=== PATIENT | female | born 1975 | race Caucasian/White ===

== ENCOUNTER 2018-05-09 06:56 | Inpatient (IN) | payer OTHER ==
[2018-05-09] MEDS ORDERED: NA CHLORIDE 0.9% 500 ML ONE (07:17)
[2018-05-09 07:25] LABS: Absolute Lymphocytes (CBC) 2.3 K/uL (0.7-4.9); Absolute Monocytes 0.6 K/uL (0.1-1.3); Absolute Neutrophil 12.2 K/uL (1.8-8.0); Basophils % 0.5 % (0-1.3); Eosinophils % 0.6 % (0-4.4); Hematocrit 44.5 % (36.0-45.0); MCH 30.7 pg (27.0-35.0); MCV 90.2 fL (80-100); MPV 8.2 fL (7.6-11.3); RBC Red Blood Cell Count 4.93 M/uL (3.86-4.86)
[2018-05-09 07:48] LABS: Albumin 3.8 g/dL (3.4-5.0); Bilirubin Direct 0.1 mg/dL (0-0.2); Bilirubin Total 0.5 mg/dL (0.2-1.0); Potassium 3.6 mmol/L (3.5-5.1); Protein, Total 8.4 g/dL (6.4-8.2)
[2018-05-09] MEDS ORDERED: MORPHINE 4 MG/ML SYR ONE ×2 (08:00→10:46)
[2018-05-09] MEDS ORDERED: ONDANSETRON 4 MG/2 ML VIAL ONE (08:00)
[2018-05-09 08:22] LABS: Urine Blood 1+ (NEG); Urine Glucose NEGATIVE (NEG); Urine Protein TRACE (NEG); Urine Specific Gravity 1.025 (1.005-1.030); Urine pH 5.5 (5.0-7.0)
[2018-05-09 08:24] LABS: Urine Bacteria >50 /HPF (<20); Urine Culture Reflex Order NOT NEEDED
--- NOTE | 2018-05-09 10:06 | RAD REPORT ---
EXAM DESCRIPTION: CT - Abdomen Pelvis W Contrast - 05/09/2018 9:50 am CLINICAL HISTORY: Abdominal pain, history of cholecystectomy COMPARISON: Gallbladder ultrasound August 2017 TECHNIQUE: Biphasic, helical CT imaging of the abdomen and pelvis was performed following 100 ml non -ionic IV contrast. Oral contrast was given. All CT scans are performed using dose optimization technique as appropriate and may include automated exposure control or mA/KV adjustment according to patient size. FINDINGS: No suspicious findings in the lung bases. Left hemidiaphragm elevation noted. No pericardi al effusion. Liver shows a mild fatty infiltration pattern with no focal liver lesion. Spleen and pancreas show no acute findings. Cholecystectomy clips are present with no biliary tree dilatation. Symmetric renal function is seen with no hydronephrosis or suspicious renal mass. No pyelonephritis o r acute renal parenchymal process. Urinary bladder is fully contracted limiting assessment. No primar y uterine or ovarian process seen. Tip of the cecum is thickened. Patient has a relatively short length appendix showing a diameter of 1 0 mm with wall thickening and edema. There is periappendiceal inflammatory stranding. There is fluid collecting in the dependent portion of the pelvis has a somewhat thickened or irregular appearance. T his is likely affected/inflammatory fluid related to a separate of appendicitis. No abscess or draina ble fluid collection. Hemorrhagic or ruptured ovarian cyst is suspected. Patient has several prominen t small bowel loops likely secondary to the acute appendicitis. Remainder the colon is unremarkable. No acute gastric finding. No free air or pneumatosis. No hernia, mass or bulky lymphadenopathy. No adrenal abnormality. No suspicious bony findings. IMPRESSION: Acute appendicitis. No abscess or free air. Appendix is in classic right lower quadrant location. Fluid and inflammatory stranding extend into the pelvic floor.
[2018-05-09] MEDS ORDERED: METRONIDAZOLE 500mg IVPB 500 MG/100 ML BAG IV ONE (10:26)
[2018-05-09] MEDS ORDERED: CEFOXITIN/SWI 1gm 1 GM/10 ML SYR ONE (10:26)
--- NOTE | 2018-05-09 10:37 | EDPHYS ---
Physician Documentation [facility] Name: Mahnaz Pimentel Age: 43 yrs Sex: Female : 1975 Arrival Date: 05/09/2018 Time: 06:58 Bed 15 Private MD: ED Physician Pablito Tang HPI: 05/09 07:04 This 43 yrs old Female presents to ER via Unassigned with complaints of rn Abdominal Pain. 07:04 The patient presents with abdominal pain in the lower abdomen. Onset: The rn symptoms/episode began/occurred yesterday. The symptoms do not radiate. Associated signs and symptoms: Pertinent positives: constipation, Pertinent negatives: anorexia, blood in stools, fever, vaginal discharge, vomiting, vomiting blood. Modifying factors: The symptoms are alleviated by nothing, the symptoms are aggravated by touching the area, walking. Severity of pain: At its worst the pain was moderate in the emergency department the pain is unchanged. The patient has not experienced similar symptoms in the past. Reports lower abd pain that began yesterday, began upper abd yesterday, no fever, + constipation, took laxative and had soft bowel movement today, no blood, has had gallbladder removed. No vomiting. . 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 - Social history:: Smoking status: Patient/guardian denies using tobacco. - Ebola Screening: : No symptoms or risks identified at this time. - Family history:: not pertinent. - Hospitalizations: : No recent hospitalization is reported. ROS: 07:04 Constitutional: Negative for fever, chills, and weight loss, Eyes: Negative for injury, rn pain, redness, and discharge, Neck: Negative for injury, pain, and swelling, Cardiovascular: Negative for chest pain, palpitations, and edema, Respiratory: Negative for shortness of breath, cough, wheezing, and pleuritic chest pain, Abdomen/GI: Negative for nausea, vomiting Back: Negative for injury and pain, : Negative for injury, bleeding, discharge, and swelling, MS/Extremity: Negative for injury and deformity, Skin: Negative for injury, rash, and discoloration, Neuro: Negative for headache, weakness, numbness, tingling, and seizure. Exam: 07:04 Constitutional: Overweight female, no acute distress, slow to walk to room Head/Face: rn Normocephalic, atraumatic. Cardiovascular: tachycardic, regular, no murmur Respiratory: Lungs have equal breath sounds bilaterally, clear to auscultation. No increased work of breathing, no retractions or nasal flaring. Abdomen/GI: soft, + lower abd tenderness, suprapubic, no rebound Back: No spinal tenderness. No costovertebral tenderness. Full range of motion. MS/ Extremity: Pulses equal, no cyanosis. Neurovascular intact. Full, normal range of motion. Equal circumference. Neuro: Awake and alert, GCS 15, oriented to person, place, time, and situation. Cranial nerves II-XII grossly intact. Motor strength 5/5 in all extremities. Sensory grossly intact. Cerebellar exam normal. Normal gait. Vital Signs: 07:03 BP 136 / 89; Pulse 107; Resp 16; Temp 97.5(TE); Pulse Ox 95% on R/A; Weight 104.33 kg hb (R); Height 5 ft. 3 in. (160.02 cm); Pain 10/10; 08:00 BP 120 / 79; Pulse 101; Resp 15; Pulse Ox 95% on R/A; Pain 10/10; hb 09:03 BP 127 / 70; Pulse 102; Resp 17; Pulse Ox 91% on R/A; mh5 09:32 Pulse Ox 90% on R/A; sv 10:28 BP 107 / 78; Pulse 106; Resp 16; Pulse Ox 98% on 2 lpm NC; Pain 6/10; hb 11:30 BP 108 / 76; Pulse 102; Resp 18; Pulse Ox 100% on R/A; hb 12:30 BP 112 / 74; Pulse 100; Resp 18; Pulse Ox 100% on R/A; hb 07:03 Body Mass Index 40.74 (104.33 kg, 160.02 cm) hb 09:32 Pt placed on O2 \T\ 2L per NC. O2 sat up to 96%. sv MDM: 07:00 Patient medically screened. rn 10:34 Differential diagnosis: appendicitis, non-specific abd pain, Ureterolithiasis, urinary rn tract infection. Data reviewed: vital signs, nurses notes, lab test result(s), radiologic studies, CT scan, and as a result, I will admit patient. Counseling: I had a detailed discussion with the patient and/or guardian regarding: the historical points, exam findings, and any diagnostic results supporting the discharge/admit diagnosis, lab results, radiology results, the need for further work-up and treatment in the hospital. Admission orders: after a detailed discussion of the patient's condition and case, the admit orders are written by me. ED course: Pt with acute appendicitis. Paged Dr. 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 . 11:25 ED course: Spoke with Dr. Botello, was in OR, will plan for surgery this afternoon.. rn 05/09 07:04 Order name: Basic Metabolic Panel; Complete Time: 07:55 rn 05/09 07:04 Order name: CBC with Diff; Complete Time: 07:55 rn 05/09 07:04 Order name: Hepatic Function; Complete Time: 07:55 rn 05/09 07:04 Order name: Lipase; Complete Time: 07:55 rn 05/09 07:04 Order name: Urine Microscopic Only; Complete Time: 09:00 rn 05/09 08:19 Order name: Urine Dipstick--Ancillary (enter results) bd 05/09 07:04 Order name: IV Saline Lock; Complete Time: 07:17 rn 05/09 07:04 Order name: CT Abd/Pelvis - W/Contrast; Complete Time: 10:09 rn 05/09 08:19 Order name: Urine --Ancillary (enter results) bd 05/09 07:04 Order name: Labs collected and sent; Complete Time: 07:17 rn 05/09 07:04 Order name: Urine Test (obtain specimen); Complete Time: 08:10 rn 05/09 07:04 Order name: Urine Dipstick-Ancillary (obtain specimen); Complete Time: 08:10 rn Administered Medications: 07:16 Drug: NS 0.9% 500 ml Route: IV; Rate: bolus; Site: left antecubital; hb 07:56 Drug: morphine 4 mg Route: IVP; Site: left antecubital; hb 10:23 Drug: Mefoxin 2 grams Route: IVPB; Infused Over: 30 mins; Site: left antecubital; hb 10:24 Drug: Flagyl 500 mg Volume: 100 ml; Route: IVPB; Rate: 200 ml/hr; Infused Over: 30 hb mins; Site: left antecubital; 10:40 Drug: morphine 2 mg Route: IVP; Site: left antecubital; hb 11:00 Follow up: Response: No adverse reaction sv Disposition: 05/09/18 10:36 Hospitalization ordered by Esau Botello for Inpatient Admission. Preliminary diagnosis are Acute appendicitis, Urinary tract infection, site not specified. - Bed requested for Telemetry/MedSurg (Inpatient). - Status is Inpatient Admission. sv - Condition is Stable. - Problem is new. - Symptoms have improved. UTI on Admission? Yes Signatures: Dispatcher [employer] EDKaren Bond RN RN sv Woody, Diana, RN RN dw Nieto, Roman, MD MD rn Baxter, Heather, RN RN Corrections: (The following items were deleted from the chart) 11:59 10:36 Hospitalization Ordered by Esau Botello MD for Inpatient Admission. Preliminary dw diagnosis is Acute appendicitis; Urinary tract infection, site not specified. Bed requested for Telemetry/MedSurg (Inpatient). Status is Inpatient Admission. Condition is Stable. Problem is new. Symptoms have improved. UTI on Admission? Yes. rn 13:00 11:59 05/09/2018 10:36 Hospitalization Ordered by Esau Botello MD for Inpatient sv Admission. Preliminary diagnosis is Acute appendicitis; Urinary tract infection, site not specified. Bed requested for Telemetry/MedSurg (Inpatient). Status is Inpatient Admission. Condition is Stable. Problem is new. Symptoms have improved. UTI on Admission? Yes. segundo
--- NOTE | 2018-05-09 10:37 | ER ---
Nurse's Notes [facility] Name: Mahnaz Pimentel Age: 43 yrs Sex: Female : 1975 Arrival Date: 05/09/2018 Time: 06:58 Bed 15 Private MD: Diagnosis: Acute appendicitis;Urinary tract infection, site not specified Presentation: 05/09 07:00 Presenting complaint: Patient states: lower abd pain x 1 day. Reports constipation and sv took a laxative yesterday and has had "liquid brown" feces, pain worse with breathing. Denies n/v. Transition of care: patient was not received from another setting of care. Onset of symptoms was May 08, 2018. Risk Assessment: Do you want to hurt yourself or someone else? Patient reports no desire to harm self or others. Initial Sepsis Screen: Does the patient meet any 2 criteria? HR > 90 bpm. No. Patient's initial sepsis screen is negative. Does the patient have a suspected source of infection? No. Patient's initial sepsis screen is negative. Care prior to arrival: None. 07:00 Method Of Arrival: Ambulatory sv 07:00 Acuity: RAHEEM 3 sv Triage Assessment: 07:00 General: Appears uncomfortable, obese, well developed, Behavior is calm, cooperative, sv appropriate for age. Pain: Complains of pain in left upper quadrant and left lower quadrant Pain currently is 10 out of 10 on a pain scale. Pain began 1 day ago. Is continuous, Aggravated by deep breathing. Neuro: Level of Consciousness is awake, alert, obeys commands, Oriented to person, place, time, situation, Moves all extremities. Full function Gait is steady. Respiratory: Respiratory effort is even, unlabored, Respiratory pattern is regular, symmetrical. GI: Abdomen is obese, Stools are reported to be diarrhea. Abd is soft X 4 quads Abdomen is tender to palpation in left upper quadrant and left lower quadrant Reports diarrhea, Patient currently denies nausea, vomiting. Derm: Skin is normal. 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 - Social history:: Smoking status: Patient/guardian denies using tobacco. - Ebola Screening: : No symptoms or risks identified at this time. - Family history:: not pertinent. - Hospitalizations: : No recent hospitalization is reported. Screenin:09 Abuse screen: Denies threats or abuse. Denies injuries from another. Nutritional sv screening: No deficits noted. Tuberculosis screening: No symptoms or risk factors identified. Fall Risk None identified. Assessment: 07:40 Reassessment: Pt finished drinking oral contrast, Mis in CT notified. hb 07:59 Reassessment: Pt c/o lower abdominal pain 04/11, requesting pain medication. Dr. Tang notified, morphine 4mg IVP administered as ordered. VSS. 08:45 Reassessment: Patient appears in no apparent distress at this time. Patient and/or family updated on plan of care and expected duration. Pain level reassessed. Patient is alert, oriented x 3, equal unlabored respirations, skin warm/dry/pink. 09:30 Reassessment: Patient appears in no apparent distress at this time. No changes from hb previously documented assessment. Patient and/or family updated on plan of care and expected duration. Pain level reassessed. Patient is alert, oriented x 3, equal unlabored respirations, skin warm/dry/pink. 10:15 Reassessment: Patient appears in no apparent distress at this time. Patient and/or family updated on plan of care and expected duration. Pain level reassessed. Patient is alert, oriented x 3, equal unlabored respirations, skin warm/dry/pink. 11:30 Reassessment: Patient appears in no apparent distress at this time. No changes from hb previously documented assessment. Patient and/or family updated on plan of care and expected duration. Pain level reassessed. Patient is alert, oriented x 3, equal unlabored respirations, skin warm/dry/pink. 12:33 Reassessment: Patient appears in no apparent distress at this time. No changes from previously documented assessment. Patient and/or family updated on plan of care and expected duration. Pain level reassessed. Patient is alert, oriented x 3, equal unlabored respirations, skin warm/dry/pink. Vital Signs: 07:03 BP 136 / 89; Pulse 107; Resp 16; Temp 97.5(TE); Pulse Ox 95% on R/A; Weight 104.33 kg hb (R); Height 5 ft. 3 in. (160.02 cm); Pain 10/10; 08:00 BP 120 / 79; Pulse 101; Resp 15; Pulse Ox 95% on R/A; Pain 10/10; hb 09:03 BP 127 / 70; Pulse 102; Resp 17; Pulse Ox 91% on R/A; mh5 09:32 Pulse Ox 90% on R/A; sv 10:28 BP 107 / 78; Pulse 106; Resp 16; Pulse Ox 98% on 2 lpm NC; Pain 6/10; hb 11:30 BP 108 / 76; Pulse 102; Resp 18; Pulse Ox 100% on R/A; hb 12:30 BP 112 / 74; Pulse 100; Resp 18; Pulse Ox 100% on R/A; hb 07:03 Body Mass Index 40.74 (104.33 kg, 160.02 cm) hb 09:32 Pt placed on O2 \\T\\ 2L per NC. O2 sat up to 96%. sv ED Course: 06:58 Patient arrived in ED. es 06:59 Pablito Tang MD is Attending Physician. rn 07:00 Arm band placed on Patient placed in an exam room, on a stretcher, on pulse oximetry. sv 07:07 Triage completed. sv 07:09 Patient has correct armband on for positive identification. Placed in gown. Bed in low sv position. Call light in reach. Pulse ox on. NIBP on. Door closed. Warm blanket given. Head of bed elevated. 07:42 Dorothy Gore, RN is Primary Nurse. hb 08:00 Inserted saline lock: 20 gauge in left antecubital area, using aseptic technique. hb 09:[address] sv 09:51 CT Abd/Pelvis - W/Contrast In Process Unspecified. EDMS 10:36 Esau Botello MD is Hospitalizing Provider. rn 13:05 No provider procedures requiring assistance completed. Patient admitted, IV remains in sv place. intact. Administered Medications: 07:16 Drug: NS 0.9% 500 ml Route: IV; Rate: bolus; Site: left antecubital; hb 07:56 Drug: morphine 4 mg Route: IVP; Site: left antecubital; hb 10:23 Drug: Mefoxin 2 grams Route: IVPB; Infused Over: 30 mins; Site: left antecubital; hb 10:24 Drug: Flagyl 500 mg Volume: 100 ml; Route: IVPB; Rate: 200 ml/hr; Infused Over: 30 hb mins; Site: left antecubital; 10:40 Drug: morphine 2 mg Route: IVP; Site: left antecubital; hb 11:00 Follow up: Response: No adverse reaction sv Outcome: 10:36 Decision to Hospitalize by Provider. rn 13:00 Patient left the ED. sv 13:06 Admitted to OR accompanied by nurse, family with patient, via wheelchair, with chart, sv Report called to Rayne ROBBINS from OR 13:06 Condition: stable 13:06 Instructed on the need for admit. Signatures: Dispatcher [employer] Karen Tariq RN RN sv Salyer, Edna es Nieto, Roman, MD MD rn Baxter, Heather, RN RN hb Martinez, Maria [facility]
[2018-05-09] MEDS ORDERED: MORPHINE 4 MG/ML SYR IV PRN (12:53)
[2018-05-09] MEDS ORDERED: ACETAMINOPHEN 500 MG TAB PO PRN (12:53)
[2018-05-09] MEDS ORDERED: ONDANSETRON 4 MG/2 ML VIAL IV PRN (12:53)
[2018-05-09] MEDS ORDERED: D5 0.45 NS 1,000 ML IV SCH (12:53)
[2018-05-09] MEDS ORDERED: Ringers Lactate 1,000 ML IV ONE (13:21)
[2018-05-09] MEDS ORDERED: ROCURONIUM 50 MG/5 ML VIAL IV ONE (13:34)
[2018-05-09] MEDS ORDERED: PROPOFOL 200 MG/20 ML VIAL IV ONE (13:34)
[2018-05-09] MEDS ORDERED: ONDANSETRON HCL 40 MG/20 ML VIAL ONE (13:34)
[2018-05-09] MEDS ORDERED: FENTANYL CITR 100 MCG/2 ML ONE ×2 (13:34→14:35)
[2018-05-09] MEDS ORDERED: LIDOCAINE 2% MPF 5 ML VIAL ONE (13:34)
[2018-05-09] MEDS ORDERED: MIDAZOLAM HCL 2 MG/2 ML INJ ONE (13:34)
[2018-05-09] MEDS ORDERED: Phenylephrine HCl 10 MG/ML 1 ML VIAL ONE (14:36)
[2018-05-09] MEDS ORDERED: NS 0.9% VIAL 10 ML ONE (14:37)
[2018-05-09] MEDS ORDERED: METOCLOPRAMIDE 10 MG/2mL INJ ONE (14:44)
[2018-05-09] MEDS ORDERED: GLYCOPYRROLATE 0.2 MG/ML SYR ONE ×2 (14:45→14:46)
[2018-05-09] MEDS ORDERED: NEOSTIGMINE 1 MG/ML -5 ML SYRINGE ONE (14:45)
[2018-05-09] MEDS ORDERED: NA CHLORIDE 0.9% 1,000 ML ONE (14:45)
[2018-05-09] MEDS ORDERED: KETOROLAC 30 MG/ML INJ ONE (14:46)
--- NOTE | 2018-05-09 14:56 | P.OP ---
Cotton Roll Packer: Dane PALOMARES Preoperative diagnosis: Acute Appendicitis Postoperative diagnosis: same with perforation Primary procedure: Lap Appy Anesthesia: General Estimated blood loss: min Specimen: appy Findings: as above Complications: None Transferred to: Recovery Room Condition: Good
[2018-05-09] MEDS: D5 0.45 NS 1,000 ML IV SCH ×2 (17:25→23:19)
[2018-05-09] MEDS: METRONIDAZOLE 500mg IVPB 500 MG/100 ML BAG IV SCH (17:26)
[2018-05-09] MEDS: CEFOXITIN/SWI 1gm 1 GM/10 ML SYR IVP SCH (17:26)
[2018-05-09] MEDS ORDERED: CEFOXITIN/SWI 1gm 1 GM/10 ML SYR IV SCH (18:00)
[2018-05-09] MEDS ORDERED: CEFOXITIN SODIUM 1 GM/VIAL IVPB SCH (18:00)
--- NOTE | 2018-05-09 19:05 | PREOPHP ---
Date of Admission: 05/09/2018 Reason: Abdominal pain. History Of Present Illness: The patient is a 43-year-old female who comes in with 1-day history of d iffuse abdominal pain, localizing to the right lower quadrant. Denies any nausea or vomiting. Has a little constipation. No blood in her stool. No diarrhea. No sore throat, runny nose, cough, heada ches, or dizziness. No chest pain. No fever or chills. No anorexia. No dysuria or hematuria. Review of Systems: Otherwise unremarkable. Past Medical History: Significant for hypertension. Past Surgical History: Tubal ligation and cholecystectomy. Allergies: NONE. Social History: She does not smoke. Drinks occasionally. Family History: Noncontributory. Physical Examination: Vital Signs: Stable, afebrile. General: Awake, alert, and oriented x3. Head and Neck: Cranial nerves 2 through 12 are grossly within normal limits. No neck masses. No JV D. Throat clear. Neck is supple. Chest: Clear. Heart: S1 and S2. Abdomen: Soft, nondistended. Positive bowel sounds. Positive right lower quadrant tenderness with rebound. No rigidity or guarding. Extremities: Adequately perfused. Nontender. Neuro: Nonfocal. Laboratory Data: White count is 15.2 with a left shift. Chemistry reviewed. Glucose is slightly el evated, remaining of the chemistry is unremarkable. CT of the abdomen and pelvis reviewed with the r adiologist, it is acute uncomplicated appendicitis. Assessment: Acute appendicitis. Recommendations: Admit, n.p.o., IV fluid, IV antibiotic, to the OR for lap appy, possible open. The patient and family understand the risks, benefits, and alternatives and agree to procedure. MAGGIE/LATONIA Voice ID: [id number]
[2018-05-10] MEDS: CEFOXITIN/SWI 1gm 1 GM/10 ML SYR IVP SCH ×5 (00:51→23:59)
[2018-05-10] MEDS: HYDROMORPHONE HCL 1 MG/ML INJ IV PRN ×2 (00:52→06:02)
[2018-05-10] MEDS: METRONIDAZOLE 500mg IVPB 500 MG/100 ML BAG IV SCH ×3 (00:53→18:00)
--- NOTE | 2018-05-10 01:48 | OP ---
Date of Procedure: 05/09/2018 Surgeon: Esau Botello MD Senior Ios Developer: MARIELLE Cee. Preoperative Diagnosis: Acute appendicitis. Postoperative Diagnosis: Acute perforated appendicitis. Estimated Blood Loss: Minimal. Specimen: Appendix. Findings: As above. Anesthesia: General. Complications: None. Disposition: The patient tolerated the procedure in stable condition and was taken to recovery room in good general condition. Procedure In Detail: The patient was brought to the OR and placed in supine position. General anest hesia was begun. The patient was prepped and draped in usual sterile fashion. Marcaine 0.5% was inf iltrated locally. A 15-blade was used to make a 1 cm supraumbilical midline incision. Subcutaneous tissue was divided. The fascia was identified and divided. A #1 Vicryl stay suture was placed. Per itoneal cavity was entered with sharp and blunt dissection. A 12 mm trocar was placed into the perit mckeon cavity under direct vision. Pneumoperitoneum was established. Two 5 mm trocars placed, one in the suprapubic region and one in the left lower quadrant. Laparoscopy revealed pus in the pelvis wh ich was aspirated. The tubes, ovaries, and uterus looked normal; however, the appendix was very thic kened. There was separation all around it, and there was an area in the tip where it appeared it may have ruptured. It was consistent with acute perforated appendicitis. The base of the appendix and the mesoappendix were clearly identified. Endo-GABBI stapling device was used to divide both structure s and the appendix removed and right lower quadrant irrigated. No evidence of bleeding or bowel inju ry appreciated. It was thoroughly irrigated. All purulence was evacuated. Suppuration was evacuate d. There was no evidence of bleeding or bowel injury appreciated. All trocars were removed under di rect vision. Stay sutures were tied to each other across the fascial defect. Subcutaneous wounds we re irrigated. Bleeding controlled with cautery. A 3-0 chromic used to approximate the subcutaneous tissue and lorenzo were used to close the skin. Sterile dressing was applied. The patient was awake brent and taken to recovery room in good general condition. MAGGIE/MODL Voice ID: [id number] Report ID: [id number]
[2018-05-10] MEDS: D5 0.45 NS 1,000 ML IV SCH ×2 (05:21→15:19)
[2018-05-10 05:57] LABS: Absolute Lymphocytes (CBC) 1.3 K/uL (0.7-4.9); Absolute Monocytes 0.4 K/uL (0.1-1.3); Absolute Neutrophil 10.8 K/uL (1.8-8.0); Basophils % 0.2 % (0-1.3); Eosinophils % 0.6 % (0-4.4); Lymphocytes % 10.4 % (15.3-44.8); MCH 30.9 pg (27.0-35.0); MCV 92.5 fL (80-100); MPV 8.1 fL (7.6-11.3); Monocytes % 3.4 % (3.3-12.3); RBC Red Blood Cell Count 3.78 M/uL (3.86-4.86)
[2018-05-10] MEDS: HYDROCODONE/APAP 7.5/325 MG TAB PO PRN ×2 (09:19→12:57)
--- NOTE | 2018-05-10 13:24 | PN ---
Date of Progress Note: 05/10/2018 Subjective: The patient is awake and alert, complaining of some incisional pain. Tolerating sips of clear liquids. Objective: Vital Signs: Stable. She is afebrile. General: She is awake, alert, and oriented x3. Head and Neck: No masses. Chest: Clear. Heart: S1, S2. Abdomen: Soft, nondistended. Positive bowel sounds. Minimal incisional tenderness. No peritonitis . Laboratory Data: White count is 12.6, with a left shift. Chemistry reviewed. Assessment: Status post laparoscopic appendectomy for perforated appendicitis. Plan: Continue IV antibiotics. Advance diet as tolerated. Encourage ambulation and incentive gianni metry and follow white count. /MODL Voice ID: [id number] Report ID: [id number]
[2018-05-10] MEDS: ONDANSETRON 4 MG/2 ML VIAL IV PRN (21:09)
[2018-05-10] MEDS: ACETAMINOPHEN 325 MG TABLET PO PRN (21:15)
[2018-05-11 00:12] LABS: Urine Appearance CLOUDY; Urine Bilirubin NEGATIVE (NEG); Urine Blood 2+ (NEG); Urine Color DK YELLOW; Urine Glucose NEGATIVE (NEG); Urine Protein 2+ (NEG); Urine Specific Gravity >=1.030 (1.005-1.030); Urine Urobilinogen 0.2 mg/dL (0.2-1.0)
[2018-05-11 00:14] LABS: Urine Microscopic Reflex ORDER UMIC
[2018-05-11] MEDS: METRONIDAZOLE 500mg IVPB 500 MG/100 ML BAG IV SCH ×3 (00:17→16:11)
[2018-05-11 01:01] LABS: Urine Bacteria >50 /HPF (<20); Urine Culture Reflex Order REFLEXED
[2018-05-11] MEDS: HYDROMORPHONE HCL 1 MG/ML INJ IV PRN (01:50)
[2018-05-11 05:11] LABS: Absolute Lymphocytes (CBC) 0.7 K/uL (0.7-4.9); Absolute Monocytes 0.6 K/uL (0.1-1.3); Absolute Neutrophil 10.6 K/uL (1.8-8.0); Basophils % 0.2 % (0-1.3); Eosinophils % 0.1 % (0-4.4); Hematocrit 35.4 % (36.0-45.0); Lymphocytes % 5.8 % (15.3-44.8); MCH 30.7 pg (27.0-35.0); MCV 90.3 fL (80-100); MPV 8.3 fL (7.6-11.3); Monocytes % 4.7 % (3.3-12.3); RBC Red Blood Cell Count 3.92 M/uL (3.86-4.86)
[2018-05-11] MEDS: CEFOXITIN/SWI 1gm 1 GM/10 ML SYR IVP SCH ×3 (05:13→17:03)
[2018-05-11 05:20] LABS: BUN Blood Urea Nitrogen 7 mg/dL (7-18); Bicarbonate 30 mmol/L (21-32); Glucose Level 116 mg/dL (74-106); Magnesium 2.2 mg/dL (1.8-2.4); Phosphorus 2.3 mg/dL (2.5-4.9); Potassium 3.7 mmol/L (3.5-5.1); Sodium Level 133 mmol/L (136-145)
[2018-05-11 06:54] LABS: Blood Morphology Comment NOT SEEN (NOT SEEN); Platelet Estimate ADEQ; Urine White Blood Cell Casts OK
[2018-05-11] MEDS ORDERED: POTASSIUM 25 MEQ EFFERV TAB PO ONE (08:42)
[2018-05-11] MEDS: ACETAMINOPHEN 325 MG TABLET PO PRN (09:12)
[2018-05-11] MEDS: ONDANSETRON 4 MG/2 ML VIAL IV PRN (09:16)
--- NOTE | 2018-05-11 13:52 | PN ---
Subjective: The patient is awake, alert, complaining of some diffuse pain. No nausea or vomiting, b ut she is not passing gas. Vital signs are stable, afebrile. White count is still slightly elevated . Electrolytes were checked, they have been corrected. The abdomen is soft. Hypoactive bowel sound s. Slightly distended. No peritonitis. Assessment: Status post laparoscopic appendectomy for perforated appendicitis. Now, the patient wit h prolonged ileus. She also had urinary tract infection on admission and that is being treated with antibiotics and cultures are still pending. Recommendations: Continue IV antibiotics. Encourage ambulation and incentive spirometry. Once the ileus improves, the patient will be discharged home and may take several days. MAGGIE/LATONIA Voice ID: [id number] Report ID: [id number]
[2018-05-11] MEDS: MORPHINE 2 MG/ML SYR IV PRN ×2 (17:03→21:55)
[2018-05-12] MEDS: METRONIDAZOLE 500mg IVPB 500 MG/100 ML BAG IV SCH ×3 (00:11→17:54)
[2018-05-12] MEDS: ACETAMINOPHEN 325 MG TABLET PO PRN (00:21)
[2018-05-12] MEDS: CEFOXITIN/SWI 1gm 1 GM/10 ML SYR IVP SCH ×4 (05:02→17:54)
[2018-05-12] MEDS: MORPHINE 2 MG/ML SYR IV PRN ×2 (05:02→07:10)
[2018-05-12 05:32] LABS: Absolute Lymphocytes (CBC) 0.9 K/uL (0.7-4.9); Absolute Monocytes 0.7 K/uL (0.1-1.3); Absolute Neutrophil 6.5 K/uL (1.8-8.0); Basophils % 0.2 % (0-1.3); Eosinophils % 0.2 % (0-4.4); Lymphocytes % 10.8 % (15.3-44.8); MCH 31.3 pg (27.0-35.0); MCV 90.3 fL (80-100); MPV 8.5 fL (7.6-11.3); Monocytes % 8.5 % (3.3-12.3); RBC Red Blood Cell Count 3.87 M/uL (3.86-4.86)
[2018-05-12 05:40] LABS: BUN Blood Urea Nitrogen 11 mg/dL (7-18); Bicarbonate 32 mmol/L (21-32); Glucose Level 100 mg/dL (74-106); Magnesium 2.4 mg/dL (1.8-2.4); Phosphorus 2.7 mg/dL (2.5-4.9); Potassium 3.8 mmol/L (3.5-5.1); Sodium Level 135 mmol/L (136-145)
[2018-05-12] MEDS ORDERED: POTASSIUM CL SA 10 MEQ TAB PO ONE (06:00)
--- NOTE | 2018-05-12 09:39 | RAD REPORT ---
EXAM DESCRIPTION: RAD - Abdomen W Erect - 05/12/2018 7:12 am CLINICAL HISTORY: Abdominal pain FINDINGS: Air is present throughout mildly dilated colon and small bowel having the appearance of an adynamic ileus. Two oval densities within the medial left upper abdomen probably represent tablets within stomach
--- NOTE | 2018-05-12 11:55 | PN ---
Date of Progress Note: 05/12/2018 Subjective: The patient is awake, alert, having flatus, small bowel movement. No nausea or vomiting . Tolerating a little bit of her diet. Objective: Vital Signs: Stable. Afebrile. Abdomen: Distended. Hypoactive bowel sounds. Laboratory Data: White count is 8.2, still with a left shift. Assessment: Status post for laparoscopic appendectomy for perforated appendicitis. Urinary tract in fection. Prolonged ileus. Recommendation: Will check the x-rays, see what they show this morning. We will continue IV antibio tics and fluids. Encourage ambulation and incentive spirometry. /MODL Voice ID: [id number] Report ID: [id number]
[2018-05-12] MEDS: HYDROCODONE/APAP 7.5/325 MG TAB PO PRN ×2 (13:10→21:09)
[2018-05-13] MEDS: METRONIDAZOLE 500mg IVPB 500 MG/100 ML BAG IV SCH ×3 (00:03→16:32)
[2018-05-13] MEDS: CEFOXITIN/SWI 1gm 1 GM/10 ML SYR IVP SCH ×4 (00:04→18:31)
[2018-05-13] MEDS: HYDROCODONE/APAP 7.5/325 MG TAB PO PRN ×3 (03:22→21:12)
[2018-05-13 05:19] LABS: MCH 30.6 pg (27.0-35.0); MCV 90.3 fL (80-100)
[2018-05-13 05:32] LABS: Absolute Neutrophil 6.6 K/uL (1.8-8.0); Basophils % 0.5 % (0-1.3); Eosinophils % 0.6 % (0-4.4); Hematocrit 36.5 % (36.0-45.0); Lymphocytes % 11.1 % (15.3-44.8); RBC Red Blood Cell Count 4.04 M/uL (3.86-4.86)
[2018-05-13 05:49] LABS: BUN Blood Urea Nitrogen 12 mg/dL (7-18); Bicarbonate 30 mmol/L (21-32); Glucose Level 102 mg/dL (74-106); Potassium 3.5 mmol/L (3.5-5.1); Sodium Level 135 mmol/L (136-145)
[2018-05-13] MEDS ORDERED: POTASSIUM 25 MEQ EFFERV TAB PO ONE (06:30)
[2018-05-13] MEDS: ACETAMINOPHEN 325 MG TABLET PO PRN (10:40)
--- NOTE | 2018-05-13 12:03 | PN ---
Date of Progress Note: 05/13/2018 Subjective: The patient is awake, alert, feels a little better. Vital signs stable. Afebrile. Abd ominal x-ray shows adynamic ileus. Clinically, however, she is having bowel movements and passing ga s. Laboratory data reviewed. Her white count is normal. The left shift is improving as well. Abdo men is less distended. Positive bowel sounds. No tenderness. Assessment: 1.Status post laparoscopic appendectomy for perforated appendicitis. 2.Prolonged ileus. 3.Urinary tract infection. Recommendations: Continue IV antibiotics. Likely we will discharge the patient home tomorrow. We w ill advance the diet today. /MODL Voice ID: [id number] Report ID: [id number]
[2018-05-14] MEDS: CEFOXITIN/SWI 1gm 1 GM/10 ML SYR IVP SCH ×3 (00:30→11:46)
[2018-05-14] MEDS: METRONIDAZOLE 500mg IVPB 500 MG/100 ML BAG IV SCH ×2 (00:30→11:45)
[2018-05-14] MEDS: MORPHINE 2 MG/ML SYR IV PRN (01:51)
[2018-05-14 05:44] LABS: BUN Blood Urea Nitrogen 12 mg/dL (7-18); Bicarbonate 34 mmol/L (21-32); Glucose Level 110 mg/dL (74-106); Potassium 3.4 mmol/L (3.5-5.1); Sodium Level 138 mmol/L (136-145)
[2018-05-14] MEDS: HYDROCODONE/APAP 7.5/325 MG TAB PO PRN (06:18)
[2018-05-14] MEDS ORDERED: POTASSIUM 25 MEQ EFFERV TAB PO ONE (06:19)
[2018-05-14] MEDS ORDERED: LIDOCAINE 1% MPF 2 ML AMPULE ONE (11:54)
--- NOTE | 2018-05-15 04:28 | DS ---
Date of Discharge: 05/14/2018 Discharge Diagnosis: Acute appendicitis. Discharge Diagnoses: 1.Acute appendicitis. 2.Urinary tract infection. 3.Prolonged ileus. Procedure Performed: Laparoscopic appendectomy. Hospital Course: The patient is a 43-year-old female who presented with abdominal pain. Workup reve aled the TI and appendicitis. She was taken to the OR, was found to have perforated appendicitis wit h pus in the pelvis and the right lower quadrant. She postoperatively had ileus, treated with IV ant ibiotics. Abdomen was distended. X-ray on Monday showed adynamic ileus. Yesterday, the abdomen w as much softer. She was tolerating diet and ambulating. Pain was controlled with p.o. pain medicati on. Diet was advanced. Today, she started regular diet, ambulating, pain controlled with p.o. pain medication, afebrile, and there is no longer leukocytosis. Therefore, the patient will be discharged home. Disposition: Home. Condition: Stable. Discharge Instructions: Resume home medications and diet. Activity as tolerated. No heavy lifting. May shower. Keep Steri-Strips on at all times. Follow up in my office in a week. Call for appoin tment. Cipro 500 mg p.o. q.12 hours. Flagyl 500 mg p.o. q.6 hours. Tylenol No. 3 one tablet p.o. q.4 hours p.r.n. pain. /MODL Voice ID: [id number] Report ID: [id number]
== END 2018-05-14 12:00 | disposition home or self-care (01) | DRG 339 ==
LOC: ER 06:56 → ERHOLD 10:39 → 2ND 13:35
PROVIDERS: ADMIT Surgery; ATTEND Surgery
PROC: 0DTJ4ZZ Resection of Appendix, Percutaneous Endoscopic Approach (ICD-10-PCS; principal; 2018-05-09 13:45)
DX: K35.32 Acute appendicitis with perforation, localized peritonitis, and gangrene, without abscess (principal); N39.0 Urinary tract infection, site not specified; K56.0 Paralytic ileus; I10 Essential (primary) hypertension
CPT/HCPCS: 36415; 74019; 74177; 80048; 80076; 81003; 81015; 81025; 83690; 83735; 84100; 85025; 87086; 87088; 88304; 96374; 96375; 97163; 99285; J1170; J2001; J2250; J2270; J2370; J2405; J2704; J2710; J2765; J3010; J7030; Q9967

== ENCOUNTER 2021-03-01 11:39 | Emergency (ER) | payer OTHER ==
--- OUTSIDE RECORDS SUMMARY | 2021-03-01 11:41 | XMS REPORT | Continuity of Care Document ---
:1975 Author Organization [facility] t Address [address] [place] [address] Care Team Providers Name Role Phone Unavailable Unavailable Unavailable Problems This patient has no known problems. Allergies, Adverse Reactions, Alerts This patient has no known allergies or adverse reactions. Medications Ordered Filled Start Stop Current Ordering Indication Dosage Frequency Signature Comments Components Source Medication Medication Date Date Medication? Clinician (SIG) Name Name Citalopram Citalopram Yes Alex TAKE [address] [facility] Hydrobromid Hydrobromid [facility] Trazodone Trazodone Yes Alex TAKE [address] HCl HCl [facility]T [facility] NIGHT [facility] BEDTIME [facility] Lisinopril- Lisinopril- Yes Alex TAKE [address] [facility] Hydrochloro Hydrochloro [facility] TABLET [facility] thiazide thiazide M[facility]TH [facility] EVERY DAY [facility] Celexa Celexa Yes Alex 1 tablet [facility] Trazodone Trazodone Yes Alex [address] [facility] HCl HCl [facility] at bedtime [facility] Lisinopril- Lisinopril- Yes Alex TAKE [address] [facility] Hydrochloro Hydrochloro [facility] TABLET [facility] thiazide thiazide M[facility]TH [facility] Procedures This patient has no known procedures. Encounters Start End Encounter Admission Attending Care Care Encounter Source Date/Time Date/Time Type Type Clinicians Facility Department ID [id number] Outpatient [facility] [id number] [facility] 2020-11-19 2020-11-19 Out[facility] [id number] [facility] 2020-11-18 2020-11-18 Out[facility] [id number] [facility] 2020-05-27 2020-05-27 Outpatient [facility] [id number] [facility] 2020-05-07 2020-05-07 Out[facility] [id number] [facility] 2020-01-07 2020-01-07 [facility] [id number] [facility] 09:[facility]00 09:45[facility]00 [facility] Results This patient has no known results.
[2021-03-01 13:22] LABS: SARS-COV-2 RT PCR NEGATIVE (NEGATIVE)
--- NOTE | 2021-03-01 13:38 | ER ---
Nurse's Notes [facility] Name: Mahnaz Pimentel Age: 45 yrs Sex: Female : 1975 Arrival Date: 03/01/2021 Time: 11:45 Bed Waiting Private MD: Diagnosis: Viral infection, unspecified Presentation: 03/01 11:47 Chief complaint: Sore throat, fever, body aches, sinus congestion since last night. hb TMAX 101. Coronavirus screen: Client presents with at least one sign or symptom that may indicate coronavirus-19. Standard/surgical mask placed on the client. Provider contacted for isolation considerations. Ebola Screen: No symptoms or risks identified at this time. Risk Assessment: Do you want to hurt yourself or someone else? Patient reports no desire to harm self or others. Onset of symptoms was February 28, 2021. 11:47 Method Of Arrival: Ambulatory hb 11:47 Acuity: RAHEEM 4 hb Historical: - Allergies: 11:49 No Known Allergies; hb - Home Meds: 11:49 hydrochlorothiazide 25 mg Oral tab 1 tab once daily [Active]; hb 11:49 citalopram oral [Active]; trazodone Oral [Active]; hb - PMHx: 11:49 Hypertension; hb - PSHx: 11:49 Cholecystectomy; Appendectomy; hb - Immunization history:: Client reports receiving the 2nd dose of the Covid vaccine. - Social history:: Smoking status: Patient denies any tobacco usage or history of. Vital Signs: 11:47 BP 182 / 80; Pulse 100; Resp 16; Temp 98.5(TE); Pulse Ox 99% on R/A; Weight 103.87 kg; hb Height 5 ft. 3 in. (160.02 cm); Pain 4/10; 11:47 Body Mass Index 40.57 (103.87 kg, 160.02 cm) hb ED Course: 11:45 Patient arrived in ED. as 11:46 Akua a[facility]bo[facility]C [facility] kb 11:46 Antonio Chávez MD is Attending Physician. kb 11:49 Triage completed. hb 11:49 Arm band placed on. hb Administered Medications: No medications were administered Outcome: 13:37 Discharge ordered by . kb 14:07 Patient left the ED. kb Signatures: Akua Barboza FNP-C BOTTOM LOADER-Ckb Marietta Quintero as Dorothy Gore, RN RN hb
--- NOTE | 2021-03-01 13:38 | EDPHYS ---
Physician Documentation [facility] Name: Mahnaz Pimentel Age: 45 yrs Sex: Female : 1975 Arrival Date: 03/01/2021 Time: 11:45 Bed Waiting Private MD: Antonio Pablo HPI: 03/01 13:35 This 45 yrs old Female presents to ER via Ambulatory with complaints of r/o kb covid. 13:36 The patient or guardian reports flu symptoms, low-grade fever, myalgias. Onset: The kb symptoms/episode began/occurred last night. Severity of symptoms: At their worst the symptoms were mild, in the emergency department the symptoms are unchanged. Modifying factors: The symptoms are alleviated by nothing, the symptoms are aggravated by nothing. Associated signs and symptoms: Pertinent positives: fever, rhinorrhea, sore throat, Pertinent negatives: chest pain, diarrhea, ear ache, nausea, vomiting. The patient has not experienced similar symptoms in the past. The patient has not recently seen a physician. Pt reports congestion, fever, chills, sore throat, bodyaches since last night. Historical: - Allergies: 11:49 No Known Allergies; hb - Home Meds: 11:49 hydrochlorothiazide 25 mg Oral tab 1 tab once daily [Active]; hb 11:49 citalopram oral [Active]; trazodone Oral [Active]; hb - PMHx: 11:49 Hypertension; hb - PSHx: 11:49 Cholecystectomy; Appendectomy; hb - Immunization history:: Client reports receiving the 2nd dose of the Covid vaccine. - Social history:: Smoking status: Patient denies any tobacco usage or history of. ROS: 13:35 Abdomen/GI: Negative for abdominal pain, nausea, vomiting, diarrhea, and constipation. kb 13:35 Constitutional: Positive for body aches, chills, fever, malaise. 13:35 ENT: Positive for rhinorrhea, sore throat. 13:35 All other systems are negative. Exam: 13:35 Constitutional: This is a well developed, well nourished patient who is awake, alert, kb and in no acute distress. Head/Face: Normocephalic, atraumatic. ENT: Moist Mucous membranes Cardiovascular: Regular rate and rhythm with a normal S1 and S2. No gallops, murmurs, or rubs. No pulse deficits. Respiratory: Respirations even and unlabored. No increased work of breathing, no retractions or nasal flaring. Skin: Warm, dry with normal turgor. Normal color. MS/ Extremity: Pulses equal, no cyanosis. Neurovascular intact. Full, normal range of motion. Neuro: Awake and alert, GCS 15, oriented to person, place, time, and situation. Moves all extremities. Normal gait. Psych: Awake, alert, with orientation to person, place and time. Behavior, mood, and affect are within normal limits. Vital Signs: 11:47 BP 182 / 80; Pulse 100; Resp 16; Temp 98.5(TE); Pulse Ox 99% on R/A; Weight 103.87 kg; hb Height 5 ft. 3 in. (160.02 cm); Pain 4/10; 11:47 Body Mass Index 40.57 (103.87 kg, 160.02 cm) hb MDM: 11:49 Patient medically screened. kb 13:35 Data reviewed: vital signs, nurses notes. Data interpreted: Pulse oximetry: on room air kb is 99 %. Interpretation: normal. Counseling: I had a detailed discussion with the patient and/or guardian regarding: the historical points, exam findings, and any diagnostic results supporting the discharge/admit diagnosis, lab results, the need for outpatient follow up, a family practitioner, to return to the emergency department if symptoms worsen or persist or if there are any questions or concerns that arise at home. 03/01 11:50 Order name: Strep; Complete Time: 13:00 kb 03/01 12:59 Order name: Throat Culture EDMS 03/01 13:22 Order name: COVID-19/FLU A+B; Complete Time: 13:22 EDMS Administered Medications: No medications were administered Disposition: 14:14 Co-signature as Attending Physician, Antonio Chávez MD I agree with the assessment and latanya plan of care. Disposition Summary: 03/01/21 13:37 Discharge Ordered Location: Home kb Condition: Stable kb Diagnosis - Viral infection, unspecified kb Followup: kb - With: Emergency Department - When: As needed - Reason: Worsening of condition Followup: kb - With: Private Physician - When: 2 - 3 days - Reason: Recheck today's complaints, Continuance of care, Re-evaluation by your physician Discharge Instructions: - Discharge Summary Sheet kb - Viral Respiratory Infection, [id number] kb - Viral Illness, Adult kb Forms: - Medication Reconciliation Form kb - Thank You Letter kb - Antibiotic Education kb - Prescription Opioid Use kb Signatures: Dispatcher [employer] EDMS Akua Barboza, SE[employer] KISS MAKER-C SEA [employer] KISS MAKER-Antonio Yeager MD MD cha Baxter, Heather, RN RN Corrections: (The following items were deleted from the chart) 11:51 11:51 Influenza Screen (A \T\ B)+BA.LAB.BRZ ordered. EDMS EDMS 11:51 11:51 Group A Streptococcus Rapid Sc+BA.LAB.BRZ ordered. EDMS EDMS 11:51 11:51 CORONAVIRUS+MR.LAB.BRZ ordered. EDMS EDMS 12:27 11:51 Influenza Screen (A \T\ B)+BA.LAB.BRZ ordered. EDMS EDMS 12:27 11:51 CORONAVIRUS+MR.LAB.BRZ ordered. EDMS EDMS
[2021-03-01 14:11] VITALS: BP 182/80; TEMP 98.5; O2SAT 99
== END 2021-03-01 14:07 | disposition home or self-care (01) ==
LOC: ER 11:39
DX: B34.9 Viral infection, unspecified (principal); I10 Essential (primary) hypertension; Z20.822 Contact with and (suspected) exposure to COVID-19
CPT/HCPCS: 87070; 87081; 0240U; 99281

== ENCOUNTER 2023-03-06 01:25 | Emergency (ER) | payer BC ==
--- OUTSIDE RECORDS SUMMARY | 2023-03-06 01:29 | XMS REPORT | Continuity of Care Document ---
:1975 Author Organization [facility] t Address [address] [facility] [address] [place] [address] Care Team Providers Name Role Phone Alex Forbes Attending Clinician Unavailable Payers Payer Name Policy Type Policy Number Effective Date Expiration Date S [facility] [employer] 6 [id number] 2021 [facility] Blue Shield of 00:00:00 - [facility] AETNA 53 [id number] 2020 [facility] 00:00:00 [facility] Problems Condition Condition Condition Status Onset Resolution Last Treating Co mments Source Name Details Category Date Date Treatment Clinician Date [id number] Adult BMI Problem Com mon 40.0-44.9 Spirit kg/sq [facility] [id number] Insomnia, Problem Com mon unspecifie Spirit d type [facility] [id number] Morbid Problem Commo n 9104 (severe) [facility] obesity - [facility] due to [facility] [id number] Generalize Problem Com mon d anxiety [facility] disorder [facility] [id number] Current Problem Common moderate [facility] episode of - [facility] major [facility] Center prior episode [id number] HTN, goal Problem Comm on below [facility] 140/90 [facility] Allergies, Adverse Reactions, Alerts This patient has no known allergies or adverse reactions. Social History Social Habit Start Date Stop Date Quantity Comments Source History of Tobacco Use Co mmon [facility] Sex Assigned At Com mon [facility] Smoking Status Start Date Stop Date Source Never Smoker Common [facility] Medications Ordered Filled Start Stop Current Ordering Indication Dosage Frequency Signature Comments Components Source Medication Medication Date Date Medication? Clinician (SIG) Name Name Venlafaxine Venlafaxine No 1{capsu QD Venlafaxin HCl ER 75 HCl ER 75 6-09 le_with e HCl ER MG MG 00:00: _food} 75 MG 00 Benzonatate Benzonatate 2021- No 1{capsu Benzonatat 200 MG 200 MG 07-23 le_as_n e 200 MG 00:00: 00:00 eeded} 00 :00 Benzonatate Benzonatate 2021- No 1{capsu Benzonatat 200 MG 200 MG 07-23 le_as_n e 200 MG 00:00: 00:00 eeded} 00 :00 Benzonatate Benzonatate 2021- No 1{capsu Benzonatat 200 MG 200 MG 07-23 le_as_n e 200 MG 00:00: 00:00 eeded} 00 :00 Amoxicillin Amoxicillin 2021- No 1{table BID Amoxicilli -Pot -Pot 07-23 t} n-Pot Clavulanate Clavulanate 00:00: 00:00 Clavulanat 875-125 MG 875-125 MG 00 :00 e 875-125 MG Amoxicillin Amoxicillin 2021- No 1{table BID Amoxicilli -Pot -Pot 07-23 t} n-Pot Clavulanate Clavulanate 00:00: 00:00 Clavulanat 875-125 MG 875-125 MG 00 :00 e 875-125 MG Amoxicillin Amoxicillin 2021- No 1{table BID Amoxicilli -Pot -Pot 07-23 t} n-Pot Clavulanate Clavulanate 00:00: 00:00 Clavulanat 875-125 MG 875-125 MG 00 :00 e 875-125 MG predniSONE predniSONE 2021- No QD predniSONE 20 MG 20 MG 07-23 20 MG 00:00: 00:00 00 :00 predniSONE predniSONE 2021-0 2021- No QD predniSONE 20 MG 20 MG 07-23 20 MG 00:00: 00:00 00 :00 Citalopram Citalopram Yes Alex TAKE 1 Common Hydrobromid Hydrobromid Forbes TABLET BY Spirit e e MOUTH - [facility] DAILY [facility] Trazodone Trazodone Yes Alex TAKE 1 C ommon HCl HCl Forbes TABLET BY Spirit MOUTH [facility] Lisinopril- Lisinopril- Yes Alex TAKE 1 [facility] Hydrochloro Hydrochloro Forbes TABLET BY Spirit thiazide thiazide MOUTH - [facility] EVERY DAY [facility] Celexa Celexa Yes Alex 1 tablet Commo n [facility] - [facility] Trazodone Trazodone Yes Alex 1 tablet Common HCl HCl Forbes at bedtime Spirit as needed - [facility] Lisinopril- Lisinopril- Yes Alex TAKE 1 [facility] Hydrochloro Hydrochloro Forbes TABLET BY Spirit thiazide thiazide MOUTH - [facility] DAILY [facility] Lisinopril- Lisinopril- No QD Lisinopril hydroCHLORO hydroCHLORO -hydroCHLO thiazide thiazide ROthiazide 10-12.5 MG 10-12.5 MG 10-12.5 MG CeleXA 40 CeleXA 40 No 1{table QD CeleXA 40 MG MG t} MG Lisinopril- Lisinopril- No Lisinopril hydroCHLORO hydroCHLORO -hydroCHLO thiazide thiazide ROthiazide 10-12.5 MG 10-12.5 MG 10-12.5 MG traZODone traZODone No 1{table QD traZODone HCl 50 MG HCl 50 MG t_at_be HCl 50 MG dtime_a s_neede d} hydroCHLORO hydroCHLORO No hydroCHLOR thiazide thiazide Othiazide 12.5 MG 12.5 MG 12.5 MG traZODone traZODone No traZODone HCl 50 MG HCl 50 MG HCl 50 MG Lisinopril Lisinopril No Lisinopril 10 MG 10 MG 10 MG Citalopram Citalopram No Citalopram Hydrobromid Hydrobromid Hydrobromi e 40 MG e 40 MG de 40 MG traZODone traZODone No 1{table QD traZODone HCl 50 MG HCl 50 MG t_at_be HCl 50 MG dtime_a s_neede d} CeleXA 40 CeleXA 40 No 1{table QD CeleXA 40 MG MG t} MG Lisinopril- Lisinopril- No Lisinopril hydroCHLORO hydroCHLORO -hydroCHLO thiazide thiazide ROthiazide 10-12.5 MG 10-12.5 MG 10-12.5 MG hydroCHLORO hydroCHLORO No hydroCHLOR thiazide thiazide Othiazide 12.5 MG 12.5 MG 12.5 MG traZODone traZODone No traZODone HCl 50 MG HCl 50 MG HCl 50 MG Citalopram Citalopram No Citalopram Hydrobromid Hydrobromid Hydrobromi e 40 MG e 40 MG de 40 MG Lisinopril- Lisinopril- No QD Lisinopril hydroCHLORO hydroCHLORO -hydroCHLO thiazide thiazide ROthiazide 10-12.5 MG 10-12.5 MG 10-12.5 MG Lisinopril Lisinopril No Lisinopril 10 MG 10 MG 10 MG traZODone traZODone No 1{table QD traZODone HCl 50 MG HCl 50 MG t_at_be HCl 50 MG dtime_a s_neede d} Lisinopril Lisinopril No Lisinopril 10 MG 10 MG 10 MG Lisinopril- Lisinopril- No Lisinopril hydroCHLORO hydroCHLORO -hydroCHLO thiazide thiazide ROthiazide 10-12.5 MG 10-12.5 MG 10-12.5 MG Citalopram Citalopram No Citalopram Hydrobromid Hydrobromid Hydrobromi e 40 MG e 40 MG de 40 MG traZODone traZODone No traZODone HCl 50 MG HCl 50 MG HCl 50 MG Lisinopril- Lisinopril- No QD Lisinopril hydroCHLORO hydroCHLORO -hydroCHLO thiazide thiazide ROthiazide 10-12.5 MG 10-12.5 MG 10-12.5 MG hydroCHLORO hydroCHLORO No hydroCHLOR thiazide thiazide Othiazide 12.5 MG 12.5 MG 12.5 MG Lisinopril- Lisinopril- No Lisinopril hydroCHLORO hydroCHLORO -hydroCHLO thiazide thiazide ROthiazide 10-12.5 MG 10-12.5 MG 10-12.5 MG traZODone traZODone No 1{table QD traZODone HCl 50 MG HCl 50 MG t_at_be HCl 50 MG dtime_a s_neede d} hydroCHLORO hydroCHLORO No hydroCHLOR thiazide thiazide Othiazide 12.5 MG 12.5 MG 12.5 MG Lisinopril Lisinopril No Lisinopril 10 MG 10 MG 10 MG Lisinopril- Lisinopril- No QD Lisinopril hydroCHLORO hydroCHLORO -hydroCHLO thiazide thiazide ROthiazide 10-12.5 MG 10-12.5 MG 10-12.5 MG traZODone traZODone No traZODone HCl 50 MG HCl 50 MG HCl 50 MG Venlafaxine Venlafaxine No 1{capsu QD Venlafaxin HCl ER 75 HCl ER 75 le_with e HCl ER MG MG _food} 75 MG Venlafaxine Venlafaxine No 1{capsu QD Venlafaxin HCl ER 75 HCl ER 75 le_with e HCl ER MG MG _food} 75 MG Citalopram Citalopram No Citalopram Hydrobromid Hydrobromid Hydrobromi e 40 MG e 40 MG de 40 MG Diclofenac Diclofenac No 1{table BID Diclofenac Sodium 75 Sodium 75 t_as_ne Sodium 75 MG MG eded} MG hydroCHLORO hydroCHLORO No hydroCHLOR thiazide thiazide Othiazide 12.5 MG 12.5 MG 12.5 MG Citalopram Citalopram No Citalopram Hydrobromid Hydrobromid Hydrobromi e 40 MG e 40 MG de 40 MG Lisinopril Lisinopril No Lisinopril 10 MG 10 MG 10 MG Lisinopril- Lisinopril- No Lisinopril hydroCHLORO hydroCHLORO -hydroCHLO thiazide thiazide ROthiazide 10-12.5 MG 10-12.5 MG 10-12.5 MG Venlafaxine Venlafaxine No 1{capsu QD Venlafaxin HCl ER 75 HCl ER 75 le_with e HCl ER MG MG _food} 75 MG Lisinopril- Lisinopril- No QD Lisinopril hydroCHLORO hydroCHLORO -hydroCHLO thiazide thiazide ROthiazide 10-12.5 MG 10-12.5 MG 10-12.5 MG traZODone traZODone No 1{table QD traZODone HCl 50 MG HCl 50 MG t_at_be HCl 50 MG dtime_a s_neede d} Triamcinolo Triamcinolo No 1{appli Triamcinol ne ne cation} one Acetonide Acetonide Acetonide 0.1 % 0.1 % 0.1 % Acetaminoph Acetaminoph No 1{table QID Acetaminop en-Codeine en-Codeine t_as_ne hen-Codein 300-30 MG 300-30 MG eded} e 300-30 MG traZODone traZODone No traZODone HCl 50 MG HCl 50 MG HCl 50 MG Venlafaxine Venlafaxine No Venlafaxin HCl ER 75 HCl ER 75 e HCl ER MG MG 75 MG Acetaminoph Acetaminoph No 1{table QID Acetaminop en-Codeine en-Codeine t_as_ne hen-Codein 300-30 MG 300-30 MG eded} e 300-30 MG Lisinopril Lisinopril No Lisinopril 10 MG 10 MG 10 MG traZODone traZODone No 1{table QD traZODone HCl 50 MG HCl 50 MG t_at_be HCl 50 MG dtime_a s_neede d} Lisinopril- Lisinopril- No QD Lisinopril hydroCHLORO hydroCHLORO -hydroCHLO thiazide thiazide ROthiazide 10-12.5 MG 10-12.5 MG 10-12.5 MG Citalopram Citalopram No Citalopram Hydrobromid Hydrobromid Hydrobromi e 40 MG e 40 MG de 40 MG Venlafaxine Venlafaxine No Venlafaxin HCl ER 75 HCl ER 75 e HCl ER MG MG 75 MG hydroCHLORO hydroCHLORO No hydroCHLOR thiazide thiazide Othiazide 12.5 MG 12.5 MG 12.5 MG Diclofenac Diclofenac No 1{table BID Diclofenac Sodium 75 Sodium 75 t_as_ne Sodium 75 MG MG eded} MG Venlafaxine Venlafaxine No 1{capsu QD Venlafaxin HCl ER 75 HCl ER 75 le_with e HCl ER MG MG _food} 75 MG Triamcinolo Triamcinolo No 1{appli Triamcinol ne ne cation} one Acetonide Acetonide Acetonide 0.1 % 0.1 % 0.1 % Lisinopril- Lisinopril- No Lisinopril hydroCHLORO hydroCHLORO -hydroCHLO thiazide thiazide ROthiazide 10-12.5 MG 10-12.5 MG 10-12.5 MG traZODone traZODone No traZODone HCl 50 MG HCl 50 MG HCl 50 MG Triamcinolo Triamcinolo No 1{appli Triamcinol ne ne cation} one Acetonide Acetonide Acetonide 0.1 % 0.1 % 0.1 % Lisinopril- Lisinopril- No Lisinopril hydroCHLORO hydroCHLORO -hydroCHLO thiazide thiazide ROthiazide 10-12.5 MG 10-12.5 MG 10-12.5 MG traZODone traZODone No 1{table QD traZODone HCl 50 MG HCl 50 MG t_at_be HCl 50 MG dtime_a s_neede d} Venlafaxine Venlafaxine No 1{capsu QD Venlafaxin HCl ER 75 HCl ER 75 le_with e HCl ER MG MG _food} 75 MG Benzonatate Benzonatate No 1{capsu TID Benzonatat 200 MG 200 MG le} e 200 MG Acetaminoph Acetaminoph No 1{table QID Acetaminop en-Codeine en-Codeine t_as_ne hen-Codein 300-30 MG 300-30 MG eded} e 300-30 MG Diclofenac Diclofenac No 1{table BID Diclofenac Sodium 75 Sodium 75 t_as_ne Sodium 75 MG MG eded} MG traZODone traZODone No traZODone HCl 50 MG HCl 50 MG HCl 50 MG Lisinopril- Lisinopril- No QD Lisinopril hydroCHLORO hydroCHLORO -hydroCHLO thiazide thiazide ROthiazide 10-12.5 MG 10-12.5 MG 10-12.5 MG Lisinopril Lisinopril No Lisinopril 10 MG 10 MG 10 MG Venlafaxine Venlafaxine No Venlafaxin HCl ER 75 HCl ER 75 e HCl ER MG MG 75 MG hydroCHLORO hydroCHLORO No hydroCHLOR thiazide thiazide Othiazide 12.5 MG 12.5 MG 12.5 MG Citalopram Citalopram No Citalopram Hydrobromid Hydrobromid Hydrobromi e 40 MG e 40 MG de 40 MG Triamcinolo Triamcinolo No 1{appli Triamcinol ne ne cation} one Acetonide Acetonide Acetonide 0.1 % 0.1 % 0.1 % Lisinopril- Lisinopril- No Lisinopril hydroCHLORO hydroCHLORO -hydroCHLO thiazide thiazide ROthiazide 10-12.5 MG 10-12.5 MG 10-12.5 MG traZODone traZODone No 1{table QD traZODone HCl 50 MG HCl 50 MG t_at_be HCl 50 MG dtime_a s_neede d} Venlafaxine Venlafaxine No 1{capsu QD Venlafaxin HCl ER 75 HCl ER 75 le_with e HCl ER MG MG _food} 75 MG Benzonatate Benzonatate No 1{capsu TID Benzonatat 200 MG 200 MG le} e 200 MG Acetaminoph Acetaminoph No 1{table QID Acetaminop en-Codeine en-Codeine t_as_ne hen-Codein 300-30 MG 300-30 MG eded} e 300-30 MG Diclofenac Diclofenac No 1{table BID Diclofenac Sodium 75 Sodium 75 t_as_ne Sodium 75 MG MG eded} MG traZODone traZODone No traZODone HCl 50 MG HCl 50 MG HCl 50 MG Lisinopril- Lisinopril- No QD Lisinopril hydroCHLORO hydroCHLORO -hydroCHLO thiazide thiazide ROthiazide 10-12.5 MG 10-12.5 MG 10-12.5 MG Lisinopril Lisinopril No Lisinopril 10 MG 10 MG 10 MG Venlafaxine Venlafaxine No Venlafaxin HCl ER 75 HCl ER 75 e HCl ER MG MG 75 MG hydroCHLORO hydroCHLORO No hydroCHLOR thiazide thiazide Othiazide 12.5 MG 12.5 MG 12.5 MG Citalopram Citalopram No Citalopram Hydrobromid Hydrobromid Hydrobromi e 40 MG e 40 MG de 40 MG Citalopram Citalopram No Citalopram Hydrobromid Hydrobromid Hydrobromi e 40 MG e 40 MG de 40 MG Lisinopril Lisinopril No Lisinopril 10 MG 10 MG 10 MG CeleXA 40 CeleXA 40 No 1{table QD CeleXA 40 MG MG t} MG traZODone traZODone No traZODone HCl 50 MG HCl 50 MG HCl 50 MG Lisinopril- Lisinopril- No QD Lisinopril hydroCHLORO hydroCHLORO -hydroCHLO thiazide thiazide ROthiazide 10-12.5 MG 10-12.5 MG 10-12.5 MG Lisinopril- Lisinopril- No Lisinopril hydroCHLORO hydroCHLORO -hydroCHLO thiazide thiazide ROthiazide 10-12.5 MG 10-12.5 MG 10-12.5 MG hydroCHLORO hydroCHLORO No hydroCHLOR thiazide thiazide Othiazide 12.5 MG 12.5 MG 12.5 MG traZODone traZODone No 1{table QD traZODone HCl 50 MG HCl 50 MG t_at_be HCl 50 MG dtime_a s_neede d} CeleXA 40 CeleXA 40 No 1{table QD CeleXA 40 MG MG t} MG traZODone traZODone No 1{table QD traZODone HCl 50 MG HCl 50 MG t_at_be HCl 50 MG dtime_a s_neede d} Lisinopril Lisinopril No Lisinopril 10 MG 10 MG 10 MG Citalopram Citalopram No Citalopram Hydrobromid Hydrobromid Hydrobromi e 40 MG e 40 MG de 40 MG Lisinopril- Lisinopril- No QD Lisinopril hydroCHLORO hydroCHLORO -hydroCHLO thiazide thiazide ROthiazide 10-12.5 MG 10-12.5 MG 10-12.5 MG hydroCHLORO hydroCHLORO No hydroCHLOR thiazide thiazide Othiazide 12.5 MG 12.5 MG 12.5 MG traZODone traZODone No traZODone HCl 50 MG HCl 50 MG HCl 50 MG Lisinopril- Lisinopril- No QD Lisinopril hydroCHLORO hydroCHLORO -hydroCHLO thiazide thiazide ROthiazide 10-12.5 MG 10-12.5 MG 10-12.5 MG CeleXA 40 CeleXA 40 No 1{table QD CeleXA 40 MG MG t} MG Lisinopril- Lisinopril- No Lisinopril hydroCHLORO hydroCHLORO -hydroCHLO thiazide thiazide ROthiazide 10-12.5 MG 10-12.5 MG 10-12.5 MG traZODone traZODone No 1{table QD traZODone HCl 50 MG HCl 50 MG t_at_be HCl 50 MG dtime_a s_neede d} hydroCHLORO hydroCHLORO No hydroCHLOR thiazide thiazide Othiazide 12.5 MG 12.5 MG 12.5 MG traZODone traZODone No traZODone HCl 50 MG HCl 50 MG HCl 50 MG Lisinopril Lisinopril No Lisinopril 10 MG 10 MG 10 MG Citalopram Citalopram No Citalopram Hydrobromid Hydrobromid Hydrobromi e 40 MG e 40 MG de 40 MG Immunizations Ordered Immunization Filled Immunization Date Status Commen ts Source Name Name Flucelvax - single Flucelvax - single 2022-04-12 Completed [facility] dose syringe dose syringe 08:45:00 - [facility] Flucelvax - single Flucelvax - single 2022-04-12 Completed [facility] dose syringe dose syringe 08:45:00 - [facility] Flucelvax - single Flucelvax - single 2022-04-12 Completed [facility] dose syringe dose syringe 08:45:00 [facility] Flucelvax - single Flucelvax - single 2022-04-12 Completed [facility] dose syringe dose syringe 08:45:00 - [facility] Afluria Afluria 2021-04-02 Completed [facility] 14:02:00 - [facility] Afluria Afluria 2021-04-02 Completed [facility] 14:02:00 - [facility] Afluria Afluria 2021-04-02 Completed [facility] 14:02:00 - [facility] Afluria Afluria 2021-04-02 Completed [facility] 14:02:00 - [facility] Afluria Afluria 2021-04-02 Completed [facility] 14:02:00 - [facility] Afluria Afluria 2021-04-02 Completed [facility] 14:02:00 - [facility] Afluria Afluria 2021-04-02 Completed [facility] 14:02:00 - [facility] Afluria Afluria 2021-04-02 Completed [facility] 14:02:00 - [facility] Afluria Afluria 2021-04-02 Completed [facility] 14:02:00 - [facility] Afluria Afluria 2021-04-02 Completed [facility] 14:02:00 - [facility] Afluria Afluria 2021-04-02 Completed [facility] 14:02:00 - [facility] Afluria single dose Afluria single dose 2020-04-02 Completed [facility] 08:10:00 [facility] Afluria single dose Afluria single dose 2020-04-02 Completed [facility] 08:10:00 - [facility] Afluria single dose Afluria single dose 2020-04-02 Completed [facility] 08:10:00 - [facility] Afluria single dose Afluria single dose 2020-04-02 Completed [facility] 08:10:00 - [facility] Afluria single dose Afluria single dose 2020-04-02 Completed [facility] 08:10:00 - [facility] Afluria single dose Afluria single dose 2020-04-02 Completed [facility] 08:10:00 - [facility] Afluria single dose Afluria single dose 2020-04-02 Completed [facility] 08:10:00 - [facility] Afluria single dose Afluria single dose 2020-04-02 Completed [facility] 08:10:00 - [facility] Afluria single dose Afluria single dose 2020-04-02 Completed [facility] 08:10:00 [facility] Afluria single dose Afluria single dose 2020-04-02 Completed [facility] 08:10:00 - [facility] Afluria single dose Afluria single dose 2020-04-02 Completed [facility] 08:10:00 - [facility] Adacel (Tdap) Adacel (Tdap) 2019-05-08 Completed [facility] 08:56:00 - [facility] Adacel (Tdap) Adacel (Tdap) 2019-05-08 Completed [facility]irit 08:56:00 - [facility] Adacel (Tdap) Adacel (Tdap) 2019-05-08 Completed [facility] S pirit 08:56:00 [facility] Adacel (Tdap) Adacel (Tdap) 2019-05-08 Completed [facility] S [facility]irit 08:56:00 - [facility] Adacel (Tdap) Adacel (Tdap) 2019-05-08 Completed [facility] S pirit 08:56:00 [facility] Adacel (Tdap) Adacel (Tdap) 2019-05-08 Completed [facility]irit 08:56:00 [facility] Adacel (Tdap) Adacel (Tdap) 2019-05-08 Completed [facility] S pirit 08:56:00 - [facility] Adacel (Tdap) Adacel (Tdap) 2019-05-08 Completed [facility] S pirit 08:56:00 - [facility] Adacel (Tdap) Adacel (Tdap) 2019-05-08 Completed [facility] S pirit 08:56:00 - [facility] Adacel (Tdap) Adacel (Tdap) 2019-05-08 Completed Common S pirit 08:56:00 - [facility] Adacel (Tdap) Adacel (Tdap) 2019-05-08 Completed [facility] S pirit 08:56:00 [facility] Vital Signs Vital Name Observation Time Observation Value Comments Source height 2022-07-01 11:20:00 63 [in_i] [facility] S pirit [facility] weight 2022-07-01 11:20:00 243 [lb_av] [facility] S pirit [facility] bmi 2022-07-01 11:20:00 43.04 kg/m2 [facility] height 2022-06-20 09:00:00 63 [in_i] Common S pirit [facility] weight 2022-06-20 09:00:00 243 [lb_av] Common S pirit [facility] temperature 2022-06-20 09:00:00 98 [degF] Common S pirit - [facility] bmi 2022-06-20 09:00:00 43.04 kg/m2 [facility] S pirit - [facility] blood pressure 2022-06-20 09:00:00 132 mm[Hg] [facility] - systolic [facility] blood pressure 2022-06-20 09:00:00 76 mm[Hg] [facility] - diastolic [facility] height 2022-04-12 08:20:00 63 [in_i] [facility] weight 2022-04-12 08:20:00 243.5 [lb_av] [facility] temperature 2022-04-12 08:20:00 97.8 [degF] [facility] bmi 2022-04-12 08:20:00 43.13 kg/m2 [facility] oximetry 2022-04-12 08:20:00 96 % [facility] respiratory rate 2022-04-12 08:20:00 17 /min [facility] on [facility] blood pressure 2022-04-12 08:20:00 121 mm[Hg] Common [facility] - systolic [facility] blood pressure 2022-04-12 08:20:00 76 mm[Hg] Common [facility] - diastolic [facility] height 2022-01-10 08:20:00 63 [in_i] Common [facility] weight 2022-01-10 08:20:00 236.3 [lb_av] [facility] temperature 2022-01-10 08:20:00 97.9 [degF] Common [facility] bmi 2022-01-10 08:20:00 41.85 kg/m2 [facility] oximetry 2022-01-10 08:20:00 96 % [facility] respiratory rate 2022-01-10 08:20:00 16 /min [facility] on [facility] blood pressure 2022-01-10 08:20:00 132 mm[Hg] [facility] - systolic [facility] blood pressure 2022-01-10 08:20:00 72 mm[Hg] [facility] - diastolic [facility] height 2021-12-09 10:30:00 63 [in_i] Common S [facility] weight 2021-12-09 10:30:00 230.4 [lb_av] Common [facility] - [facility] temperature 2021-12-09 10:30:00 97.7 [degF] Common S pirit [facility] bmi 2021-12-09 10:30:00 40.81 kg/m2 [facility] oximetry 2021-12-09 10:30:00 96 % [facility] respiratory rate 2021-12-09 10:30:00 17 /min [facility] on [facility] blood pressure 2021-12-09 10:30:00 135 mm[Hg] [facility] - systolic [facility] blood pressure 2021-12-09 10:30:00 76 mm[Hg] [facility] - diastolic [facility] height 2021-07-28 11:10:00 63 [in_i] [facility] weight 2021-07-28 11:10:00 225 [lb_av] [facility] temperature 2021-07-28 11:10:00 98 [degF] Common S pirit [facility] bmi 2021-07-28 11:10:00 39.85 kg/m2 Common S pirit [facility] blood pressure 2021-07-28 11:10:00 130 mm[Hg] [facility] - systolic [facility] blood pressure 2021-07-28 11:10:00 75 mm[Hg] [facility] - diastolic [facility] height 2021-07-23 09:40:00 63 [in_i] Common S pirit [facility] weight 2021-07-23 09:40:00 226 [lb_av] Common S [facility] bmi 2021-07-23 09:40:00 40.03 kg/m2 [facility] height 2021-04-27 14:00:00 63 [in_i] [facility] weight 2021-04-27 14:00:00 226.9 [lb_av] [facility] temperature 2021-04-27 14:00:00 97.1 [degF] [facility] bmi 2021-04-27 14:00:00 40.19 kg/m2 [facility] oximetry 2021-04-27 14:00:00 99 % [facility] respiratory rate 2021-04-27 14:00:00 18 /min [facility] blood pressure 2021-04-27 14:00:00 131 mm[Hg] Common [facility] - systolic [facility] blood pressure 2021-04-27 14:00:00 71 mm[Hg] [facility] diastolic [facility] Procedures This patient has no known procedures. Encounters Start End Encounter Admission Attending Care Care Encounter Source Date/Time Date/Time Type Type Clinicians Facility Department ID 2022-06-16 Outpatient [facility], [facility] [id number] Common 14:28:00 Alex [facility] 2022-01-11 Outpatient [facility], [facility] [id number] Common 07:41:00 Alex [facility] 2021-12-10 Outpatient Forbes, [facility] [id number] Common 08:01:01 Alex [facility] 2021-12-08 Outpatient Forbes, [facility] [id number] Common 14:25:01 Alex [facility] 2021-07-28 Outpatient Forbes, [facility] [id number] Common 14:39:35 Alex [facility] 2021-07-28 Outpatient Forbes, [facility] [id number] Common 14:05:46 Alex [id number] [facility] 2021-07-28 Outpatient Forbes, STL[facility] [id number] Common 13:54:15 Alex [id number] [facility] 2021-07-28 Outpatient Forbes, STL[facility] [id number] Common 13:22:16 Alex [id number] [facility] 2021-07-28 Outpatient Forbes, STLML[facility] [id number] Common 13:05:52 Alex [id number] [facility] 2021-07-28 Outpatient Forbes, STL[facility] [id number] Common 12:08:20 Alex [id number] [facility] 2021-07-28 Outpatient Forbes, STL[facility] STL[facility] [id number] Common 12:07:47 Alex [id number] [facility] 2021-07-28 Outpatient Forbes, STLMLC STL[facility] [id number] Common 11:30:03 Alex [id number] [facility] 2022-07-01 2022-07-01 (TEL) STLMLC STLMLC [id number] Co mmon 00:00:00 00:00:00 [facility] 2022-07-01 2022-07-01 OFFICE STLMLC STLMLC [id number] Co mmon 00:00:00 00:00:00 VISIT EST Spir it PT LEVEL 3 - [facility] 2022-06-20 2022-06-20 OFFICE STLMLC STLMLC [id number] Co mmon 00:00:00 00:00:00 VISIT Spirit ESTAB PT - CHI LEVEL 4 [facility] 2022-04-12 2022-04-12 PREV VISIT STLMLC STLMLC [id number] Common 00:00:00 00:00:00 EST AGE Spirit 40-64 - [facility] 2022-01-10 2022-01-10 OFFICE STLMLC STLMLC [id number] Co mmon 00:00:00 00:00:00 VISIT Spirit ESTAB PT - CHI LEVEL 4 [facility] 2021-12-09 2021-12-09 OFFICE STLMLC STLMLC [id number] Co mmon 00:00:00 00:00:00 VISIT Spirit ESTAB PT - [facility] LEVEL 4 [facility] 2021-07-28 2021-07-28 OFFICE STLMLC STLMLC [id number] Co mmon 00:00:00 00:00:00 VISIT EST Spir it PT LEVEL 3 - [facility] 2021-07-23 2021-07-23 OFFICE STLMLC STLMLC [id number] Co mmon 00:00:00 00:00:00 VISIT EST Spir it PT LEVEL 3 - [facility] 2021-07-21 2021-07-21 (TEL) STLMLC STLMLC [id number] Co mmon 00:00:00 00:00:00 [facility] 2021-06-02 2021-06-02 (TEL) STLMLC STLMLC [id number] Co mmon 00:00:00 00:00:00 [facility] 2021-04-27 2021-04-27 PREV VISIT STLMLC STLMLC [id number] Common 00:00:00 00:00:00 EST AGE [place] 40-64 - [facility] 2020-12-31 2020-12-31 Outpatient STLMLC STLMLC [id number] Common 00:00:00 00:00:00 [facility] 2020-11-19 2020-11-19 Outpatient STLMLC STLMLC [id number] Common 00:00:00 00:00:00 [facility] 2020-11-18 2020-11-18 Outpatient STLMLC STLMLC [id number] Common 00:00:00 00:00:00 [facility] 2020-05-27 2020-05-27 Outpatient STLMLC STLMLC [id number] Common 00:00:00 00:00:00 [facility] 2020-05-07 2020-05-07 Outpatient STLMLC STLMLC [id number] Common 00:00:00 00:00:00 [facility] 2020-01-07 2020-01-07 Outpatient [id number] Common 09:45:00 09:45:[address] [employer] [facility] [address] [facility] Results This patient has no known results.
[2023-03-06] MEDS ORDERED: ONDANSETRON 4 MG/2 ML VIAL ONE ×2 (02:33→07:07)
[2023-03-06] MEDS ORDERED: NA CHLORIDE 0.9% 1,000 ML ONE ×2 (02:33→07:07)
[2023-03-06] MEDS ORDERED: FAMOTIDINE 20 MG/2 ML VIAL IV ONE (02:34)
[2023-03-06 02:49] LABS: Absolute Lymphocytes (CBC) 0.9 K/uL (0.7-4.9); Lymphocytes % 7.9 % (15.3-44.8); MPV 7.9 fL (7.6-11.3); Platelets 275 thou/uL (152-406); RBC Red Blood Cell Count 4.62 M/uL (3.86-4.86)
[2023-03-06] MEDS ORDERED: MORPHINE 4 MG/ML SYR ONE ×2 (02:57→07:07)
[2023-03-06 02:59] LABS: Albumin 3.7 g/dL (3.4-5.0); Bilirubin Total 0.3 mg/dL (0.2-1.0); Potassium 3.8 mEq/L (3.5-5.1); Protein, Total 7.9 g/dL (6.4-8.2)
[2023-03-06 03:21] LABS: Blood Morphology Comment NOT SEEN (NOT SEEN); Platelet Estimate ADEQ
[2023-03-06 04:06] LABS: Specific Gravity 1.009 (1.005-1.030)
[2023-03-06 04:09] LABS: Specific Gravity 1.009 (1.005-1.030); Urine Bacteria <20 /HPF (<20); Urine Bilirubin NEGATIVE (Negative); Urine Blood Trace (Negative); Urine Clarity Turbid (Clear); Urine Color Colorless (Yellow); Urine Glucose NEGATIVE (Negative); Urine Mucus Slight /HPF (None Seen); Urine Protein NEGATIVE (Negative); Urine RBC None Seen /HPF (None Seen); Urine Urobilinogen Normal (Normal); Urine pH 5.5 (5.0-7.0)
--- NOTE | 2023-03-06 05:52 | EDPHYS ---
Physician Documentation [facility] Name: Mahnaz Pimentel Age: 47 yrs Sex: Female : 1975 Arrival Date: 03/06/2023 Time: 01:25 Bed 17 Private MD: Andrei [facility] ED Physician Antonio Chávez HPI: 03/06 02:05 This 47 yrs old Female presents to ER via Ambulatory with complaints of Abdominal Pain, cp Nausea. 02:05 The patient presents with abdominal pain in the epigastric area. Onset: The cp symptoms/episode began/occurred yesterday, about 1900. The symptoms do not radiate. Historical: - Allergies: 02:06 No Known Allergies; kl - PMHx: 02:06 Hypertension; kl - PSHx: 02:06 Appendectomy; Cholecystectomy; kl - Immunization history:: Adult Immunizations up to date. - Social history:: Smoking status: Patient denies any tobacco usage or history of. ROS: 02:10 Constitutional: Negative for body aches, chills, fever, poor PO intake. cp 02:10 Eyes: Negative for injury, pain, redness, and discharge. cp 02:10 ENT: Negative for drainage from ear(s), ear pain, sore throat, difficulty swallowing, difficulty handling secretions. 02:10 Cardiovascular: Negative for chest pain, edema, palpitations. 02:10 Respiratory: Negative for cough, shortness of breath, wheezing. 02:10 Abdomen/GI: Positive for abdominal pain, vomiting, diarrhea, constipation, Negative for anorexia. Exam: 02:15 Constitutional: The patient appears in no acute distress, alert, awake, cp non-diaphoretic, non-toxic, well developed, well nourished. 02:15 Head/Face: Normocephalic, atraumatic. cp 02:15 Eyes: Periorbital structures: appear normal, Conjunctiva: normal, no exudate, no cp injection, Sclera: no appreciated abnormality, Lids and lashes: appear normal, bilaterally. 02:15 ENT: External ear(s): are unremarkable, Nose: is normal, Mouth: Lips: moist, Oral cp mucosa: pink and intact, moist, Posterior pharynx: is normal, airway is patent, no erythema, no exudate. 02:15 Chest/axilla: Inspection: normal. 02:15 Cardiovascular: Rate: normal, Rhythm: regular. 02:15 Respiratory: the patient does not display signs of respiratory distress, Respirations: normal, no use of accessory muscles, no retractions, labored breathing, is not present, Breath sounds: are clear throughout, no decreased breath sounds, no stridor, no wheezing. 02:15 Abdomen/GI: Inspection: obese Bowel sounds: active, all quadrants, Palpation: soft, in all quadrants, moderate abdominal tenderness, in the epigastric area, rebound tenderness, is not appreciated, involuntary guarding, is not appreciated. Vital Signs: 02:05 BP 158 / 89; Pulse 98; Resp 20; Temp 98.4(O); Weight 107.05 kg (R); Height 5 ft. 3 in. kl ; Pain 8/10; 02:32 BP 151 / 92; Pulse 89; Resp 18; Pulse Ox 98% on R/A; Pain 8/10; sg5 03:34 BP 145 / 96; Pulse 94; Resp 18; Pulse Ox 99% on 2 lpm NC; Pain 4/10; sg5 04:18 BP 151 / 84; Pulse 95; Resp 18; Pulse Ox 92% on R/A; sg5 05:34 BP 148 / 85; Pulse 94; Resp 16; Pulse Ox 93% on R/A; sg5 06:50 BP 156 / 90; Pulse 96; Resp 18; Pulse Ox 96% on R/A; Pain 6/10; sg5 08:15 BP 152 / 81; Pulse 90; Resp 15; Pulse Ox 96% ; jl7 02:05 Body Mass Index 41.81 (107.05 kg, 160.02 cm) kl 02:05 Pain Scale: Adult kl 02:32 Pain Scale: Adult sg5 03:34 Pain Scale: Adult sg5 06:50 Pain Scale: Adult sg5 MDM: 02:00 Patient medically screened. cp 06:33 Data reviewed: vital signs, nurses notes, lab test result(s), radiologic studies. [facility] 03/06 02:01 Order name: CBC with Diff; Complete Time: 03:27 cp 03/06 02:01 Order name: CMP; Complete Time: 03:27 cp 03/06 02:01 Order name: Lipase; Complete Time: 03:27 cp 03/06 02:01 Order name: Test, Urine; Complete Time: 04:23 cp 03/06 02:01 Order name: Urinalysis w/ reflexes; Complete Time: 04:23 cp 03/06 02:53 Order name: Manual Differential; Complete Time: 03:27 EDMS 03/06 02:12 Order name: CT Abd/Pelvis - IV Contrast Only cp 03/06 02:01 Order name: IV Saline Lock; Complete Time: 02:20 cp 03/06 02:01 Order name: Labs collected and sent; Complete Time: 08:23 cp Administered Medications: 02:30 Drug: Ondansetron IVP 4 mg Route: IVP; Site: left antecubital; sg5 07:00 Follow up: Response: No adverse reaction jl7 02:30 Drug: Famotidine IVP 20 mg Route: IVP; Site: left antecubital; sg5 07:00 Follow up: Response: No adverse reaction 7 02:31 Drug: NS 0.9% IV 1000 ml Route: IV; Rate: 1 bolus; Site: left antecubital; sg5 07:00 Follow up: Response: No adverse reaction; IV Status: Completed infusion; IV Intake: jl7 1000ml 02:50 Drug: morphine IVP or IV 4 mg Route: IVP; Infused Over: 4 mins; Site: left antecubital; sg5 06:50 Drug: Ciprofloxacin IVPB 400 mg Volume: 200 ml; Route: IVPB; Infused Over: 60 mins; sg5 Site: left antecubital; 07:50 Follow up: Response: No adverse reaction; IV Status: Completed infusion jl7 06:50 Drug: metroNIDAZOLE IVPB 500 mg Volume: 100 ml; Route: IVPB; Rate: 200 ml/hr; Infused sg5 Over: 30 mins; Site: left antecubital; 07:20 Follow up: Response: No adverse reaction; IV Status: Completed infusion jl7 07:02 Drug: NS 0.9% IV 1000 ml Route: IV; Rate: 1 bolus; Site: left antecubital; sg5 08:24 Follow up: Response: No adverse reaction; IV Status: Completed infusion; IV Intake: jl7 1000ml 07:02 Drug: morphine IVP or IV 4 mg Route: IVP; Infused Over: 4 mins; Site: left antecubital; sg5 07:30 Follow up: Response: No adverse reaction; Pain is decreased jl7 07:02 Drug: Ondansetron IVP 4 mg Route: IVP; Site: left antecubital; sg5 07:30 Follow up: Response: No adverse reaction jl7 Disposition: 06:33 Co-signature as Attending Physician, Antonio Chávez MD I agree with the assessment and [facility] plan of care. Disposition Summary: 03/06/23 05:51 Discharge Ordered Location: Home [facility] Problem: new latanya Symptoms: have improved latanya Condition: Stable latanya Diagnosis - Nausea latanya - Elevated white blood cell count latanya - Bandemia latanya - Epigastric abdominal tenderness - enterocolitis(03/06/23 06:38) latanya Followup: latanya - With: - When: 1 - 2 days - Reason: Recheck today's complaints, Continuance of care, Re-evaluation by your physician Discharge Instructions: - Discharge Summary Sheet latanya - Abdominal Pain, Adult latanya - Nausea and Vomiting, Adult latanya - Nausea, Adult latanya - Nausea and Vomiting, Adult, Qyvo-[id number] latanya - Abdominal Pain, Adult, Yskh-hq-Iswe latanya - Leukocytosis [facility] Forms: - Medication Reconciliation Form [facility] - Thank You Letter [facility] - Antibiotic Education [facility] - Prescription Opioid Use [facility] - Patient Portal Instructions [facility] - Leadership Thank You Letter [facility] Prescriptions: - ondansetron 4 mg Oral Tablet,disintegrating - take 2 tablet by ORAL route every 6 hours for 24 hours; 20 tablet; Refills: 0, [facility] Product Selection Permitted - Flagyl 500 mg Oral Tablet - take 1 tablet by ORAL route every 8 hours for 7 days; 21 tablet; Refills: 0, [facility] Product Selection Permitted - Cipro 500 mg Oral Tablet - take 1 tablet by ORAL route every 12 hours for 7 days; 14 tablet; Refills: 0, [facility] Product Selection Permitted - dicyclomine 10 mg/5 mL Oral Solution - take 10 milliliters by ORAL route 4 times per day; 180 milliliter; Refills: 0, [facility] Product Selection Permitted Signatures: Dispatcher [employer] Adenike Middleton RN Antonio Burks MD MD cha Page, Corey, PA PA cp Galvan, Stephanie RN RN sg5 Wilder Hancock RN jl7 Corrections: (The following items were deleted from the chart) 06:38 05:51 Epigastric abdominal tenderness [facility]
--- NOTE | 2023-03-06 05:52 | ER ---
Nurse's Notes [facility] Name: Mahnaz Pimentel Age: 47 yrs Sex: Female : 1975 Arrival Date: 03/06/2023 Time: 01:25 Bed 17 Private MD: Alex Forbes Diagnosis: Epigastric abdominal tenderness-enterocolitis;Nausea;Elevated white blood cell count;Bandemia Presentation: 03/06 02:05 Chief complaint: Patient states: upper abdominal pain began at 7 pm reports kl intermittent last meal 2 pieces of pizza. Coronavirus screen: Vaccine status: Patient reports receiving the 2nd dose of the covid vaccine. Ebola Screen: Patient negative for fever greater than or equal to 101.5 degrees Fahrenheit, and additional compatible Ebola Virus Disease symptoms. Initial Sepsis Screen: Does the patient meet any 2 criteria? No. Patient's initial sepsis screen is negative. Does the patient have a suspected source of infection? No. Patient's initial sepsis screen is negative. Risk Assessment: Do you want to hurt yourself or someone else? Patient reports no desire to harm self or others. Onset of symptoms was March 05, 2023 at 19:00. 02:05 Method Of Arrival: Ambulatory kl 02:05 Acuity: RAHEEM 3 kl Triage Assessment: 02:06 General: Appears uncomfortable, Behavior is calm, cooperative. Pain: Complains of pain kl in right upper quadrant and left upper quadrant Pain currently is 8 out of 10 on a pain scale. GI: Reports upper abdominal pain. Historical: - Allergies: 02:06 No Known Allergies; kl - PMHx: 02:06 Hypertension; kl - PSHx: 02:06 Appendectomy; Cholecystectomy; kl - Immunization history:: Adult Immunizations up to date. - Social history:: Smoking status: Patient denies any tobacco usage or history of. Screenin:31 [facility] ED Fall Risk Assessment (Adult) History of falling in the last 3 months, sg5 including since admission No falls in past 3 months (0 pts). Abuse screen: Denies threats or abuse. Nutritional screening: No deficits noted. Tuberculosis screening: No symptoms or risk factors identified. Assessment: 02:31 General: Appears uncomfortable, Behavior is calm, cooperative, appropriate for age. sg5 Pain: Complains of pain in abdomen and left upper quadrant and right upper quadrant. Pain: Pain currently is 8 out of 10 on a pain scale. Neuro: Level of Consciousness is awake, alert, obeys commands, Oriented to person, place, time, situation, Appropriate for age. Cardiovascular: Capillary refill < 3 seconds Patient's skin is warm and dry. Respiratory: Airway is patent Trachea midline Respiratory effort is even, unlabored, Respiratory pattern is regular, symmetrical. GI: Abdomen is round non-distended, Bowel sounds Abd is soft and non tender X 4 quads. : No signs and/or symptoms were reported regarding the genitourinary system. EENT: No signs and/or symptoms were reported regarding the EENT system. Derm: No signs and/or symptoms reported regarding the dermatologic system. Musculoskeletal: No signs and/or symptoms reported regarding the musculoskeletal system. Vital Signs: 02:05 BP 158 / 89; Pulse 98; Resp 20; Temp 98.4(O); Weight 107.05 kg (R); Height 5 ft. 3 in. kl ; Pain 8/10; 02:32 BP 151 / 92; Pulse 89; Resp 18; Pulse Ox 98% on R/A; Pain 8/10; sg5 03:34 BP 145 / 96; Pulse 94; Resp 18; Pulse Ox 99% on 2 lpm NC; Pain 4/10; sg5 04:18 BP 151 / 84; Pulse 95; Resp 18; Pulse Ox 92% on R/A; sg5 05:34 BP 148 / 85; Pulse 94; Resp 16; Pulse Ox 93% on R/A; sg5 06:50 BP 156 / 90; Pulse 96; Resp 18; Pulse Ox 96% on R/A; Pain 6/10; sg5 08:15 BP 152 / 81; Pulse 90; Resp 15; Pulse Ox 96% ; jl7 02:05 Body Mass Index 41.81 (107.05 kg, 160.02 cm) kl 02:05 Pain Scale: Adult kl 02:32 Pain Scale: Adult sg5 03:34 Pain Scale: Adult sg5 06:50 Pain Scale: Adult sg5 ED Course: 01:28 Patient arrived in ED. mr 01:28 Alex Forbes, DO is Private Physician. mr 01:35 Antonio Carver PA is PHCP. cp 01:35 Antonio Chávez MD is Attending Physician. cp 02:06 Triage completed. kl 02:08 Karen Biggs, RN is Primary Nurse. sg5 02:31 Patient has correct armband on for positive identification. Placed in gown. Bed in low sg5 position. Call light in reach. Side rails up X 1. Valuables Left with patient. 02:31 Inserted saline lock: 20 gauge in left antecubital area, using aseptic technique. Blood sg5 collected. 04:39 CT Abd/Pelvis - IV Contrast Only In Process Unspecified. EDMS 05:51 Alex Forbes DO is Referral Physician. [facility] 08:25 No provider procedures requiring assistance completed. jl7 08:41 IV discontinued, intact, bleeding controlled, No redness/swelling at site. Pressure jl7 dressing applied. Administered Medications: 02:30 Drug: Ondansetron IVP 4 mg Route: IVP; Site: left antecubital; sg5 07:00 Follow up: Response: No adverse reaction jl7 02:30 Drug: Famotidine IVP 20 mg Route: IVP; Site: left antecubital; sg5 07:00 Follow up: Response: No adverse reaction jl7 02:31 Drug: NS 0.9% IV 1000 ml Route: IV; Rate: 1 bolus; Site: left antecubital; sg5 07:00 Follow up: Response: No adverse reaction; IV Status: Completed infusion; IV Intake: jl7 1000ml 02:50 Drug: morphine IVP or IV 4 mg Route: IVP; Infused Over: 4 mins; Site: left antecubital; sg5 06:50 Drug: Ciprofloxacin IVPB 400 mg Volume: 200 ml; Route: IVPB; Infused Over: 60 mins; sg5 Site: left antecubital; 07:50 Follow up: Response: No adverse reaction; IV Status: Completed infusion jl7 06:50 Drug: metroNIDAZOLE IVPB 500 mg Volume: 100 ml; Route: IVPB; Rate: 200 ml/hr; Infused sg5 Over: 30 mins; Site: left antecubital; 07:20 Follow up: Response: No adverse reaction; IV Status: Completed infusion jl7 07:02 Drug: NS 0.9% IV 1000 ml Route: IV; Rate: 1 bolus; Site: left antecubital; sg5 08:24 Follow up: Response: No adverse reaction; IV Status: Completed infusion; IV Intake: jl7 1000ml 07:02 Drug: morphine IVP or IV 4 mg Route: IVP; Infused Over: 4 mins; Site: left antecubital; sg5 07:30 Follow up: Response: No adverse reaction; Pain is decreased jl7 07:02 Drug: Ondansetron IVP 4 mg Route: IVP; Site: left antecubital; sg5 07:30 Follow up: Response: No adverse reaction jl7 Medication: 08:25 VIS not applicable for this client. jl7 Intake: 07:00 IV: 1000ml; Total: 1000ml. jl7 08:24 IV: 1000ml; Total: 2000ml. jl7 Outcome: 05:51 Discharge ordered by . latanya 08:41 Discharged to home ambulatory. 08:41 Condition: stable 08:41 Discharge instructions given to patient, Instructed on discharge instructions, follow up and referral plans. medication usage, Demonstrated understanding of instructions, follow-up care, medications, Prescriptions given X 4. 08:41 Patient left the ED. jl7 Signatures: Dispatcher [employer] EDMS Adenike Griffin, Antonio Burks RN, MD MD cha Rivera, Mary mr Page, Corey, PA PA cp Leal, Jahala, RN RN jl7 Karen Biggs RN RN sg5
[2023-03-06] MEDS ORDERED: METRONIDAZOLE 500mg IVPB 500 MG/100 ML BAG IV ONE (06:43)
[2023-03-06] MEDS ORDERED: CIPROFLOXACIN 400mg IV 400 MG/200 ML BAG IV ONE (06:43)
[2023-03-06 08:51] VITALS: TEMP 98.4
[2023-03-06 08:56] VITALS: BP 156/90; O2SAT 96
--- NOTE | 2023-03-06 12:23 | RAD REPORT ---
EXAM DESCRIPTION: CT - Abdomen Pelvis W Contrast - 03/06/2023 6:30 am CLINICAL HISTORY: Upper abdomen pain TECHNIQUE: Contiguous axial images obtained through the abdomen and pelvis following the uneventful administration of IV contrast. Coronal and sagittal reformatted images were provided. This exam was performed according to our departmental dose-optimization program, which includes autom ated exposure control, adjustment of the mA and/or kV according to patient size and/or use of iterati ve reconstruction technique. COMPARISON: May 2018 FINDINGS: Lung bases: Clear Liver: Mild diffuse fatty infiltration of the liver. Gallbladder and biliary system: Status post cholecystectomy. Pancreas: Unremarkable Spleen: Unremarkable Adrenals: Unremarkable Kidneys: Normal renal cortical enhancement. No calculi. No hydronephrosis. GI: No obstruction. No appreciable mucosal thickening. Scattered colonic air-fluid levels and nondilated fluid-filled segments of small bowel may represent enterocolitis. Appendix: Status post appendectomy. Urinary bladder: Unremarkable Reproductive: Unremarkable as visualized Lymph nodes: No pathologically enlarged lymph nodes. Peritoneum: No focal fluid collection. No free air. Vessels: No abdominal aortic aneurysm. Abdominal wall: Unremarkable Bones: Unremarkable IMPRESSION: 1. Scattered colonic air-fluid levels and nondilated fluid-filled segments of small darrell wel may represent enterocolitis. 2. Mild diffuse fatty infiltration of the liver. Electronically signed by: Jose Cruz Tello MD 03/06/2023 6:12 AM CDT Due to temporary technical issues with the PACS/Fluency reporting system, reports are being signed by the in house radiologists without review as a courtesy to insure prompt reporting. The interpreting radiologist is fully responsible for the content of the report.
== END 2023-03-06 08:41 | disposition home or self-care (01) ==
LOC: ER 01:25
DX: K52.9 Noninfective gastroenteritis and colitis, unspecified (principal); R11.0 Nausea; D72.825 Bandemia; I10 Essential (primary) hypertension
CPT/HCPCS: 96365; 96361; 96368; 85025; 81001; 36415; 81025; 83690; 80053; 74177; 96375; 99284; Q9967; J2405 ×2; J0744; J7030 ×2

== ENCOUNTER 2024-05-21 07:59 | Emergency (ER) | payer BC ==
--- OUTSIDE RECORDS SUMMARY | 2024-05-21 08:01 | XMS REPORT | Continuity of Care Document ---
Author Name Unknown Address [address] [facility] [place] [address] [facility] thconnect Address [address] 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 Role Phone Alex Forbes Attending Clinician Unavailable GC_GCBZW_Kadiyala_S Attending Clinician Unavaila ble GC_GCBZW_Kadiyala_S Admitting Clinician Unavaila ble Payers Payer Name Policy Type Policy Number Effective Date Expirati on Date Source Blue Cross Blue [facility] [place] 6 [id number] 2021 00:00:00 [facility] [place] [id number] 2021 00:00:00 [employer] 53 [id number] 2020 00:00:00 [facility] Problems Condition Name Condition Details Condition Category Status Onset Date Resolution Date Last Treatment Date Treating Clinician Comments Source Menopausal flushing Menopausal Flushing Problem Active 09-25 00:00: 00 [facility] Menopause Menopause Problem Active 09-25 00:00: 00 [facility] Obesity Obesity Problem Active 09-25 00:00: 00 [facility] Mixed anxiety and depressive disorder Mixed Anxiety and Depressive Disorder Problem Active 09-25 00:00: 00 [facility] Essential hypertensi on Essential Hypertensi on Problem Active 09-25 00:00: 00 [facility] Hypertensi ve disorder Hypertensi ve Disorder Problem Active 09-25 00:00: 00 [facility] Amenorrhea Amenorrhea Problem Active 09-25 00:00: 00 [facility] [id number] Adult BMI 40.0-44.9 kg/sq m Problem [facility] [id number] Insomnia, unspecifie d type Problem [facility] [id number] Morbid (severe) obesity due to excess calories Problem [facility] [id number] Generalize d anxiety disorder Problem [facility] [id number] Current moderate episode of major depressive disorder without prior episode Problem [facility] [id number] Abnormal mammogram of left breast Problem [facility] Social History Social Habit Start Date Stop Date Quantity Comments Source History of Tobacco Use [facility] Sex Assigned At [facility] Smoking Status Start Date Stop Date Source Never Smoker [facility] Medications Ordered Medication Name Filled Medication Name Start Date Stop Date Current Medication? Ordering Clinician Indication Dosage Frequency Signature (SIG) Comments Components Source lisinopril 10 mg-hydrochl orothiazide 12.5 mg tablet TAKE 1 TABLET BY MOUTH EVERY DAY lisinopril 10 mg-hydrochl orothiazide 12.5 mg tablet TAKE 1 TABLET BY MOUTH EVERY DAY No lisinopril 10 mg-hydroch lorothiazi de 12.5 mg tablet TAKE 1 TABLET BY MOUTH EVERY DAY [facility] venlafaxine ER 150 mg capsule,ext ended release 24 hr TAKE 1 CAPSULE BY MOUTH EVERY DAY WITH FOOD venlafaxine ER 150 mg capsule,ext ended release 24 hr TAKE 1 CAPSULE BY MOUTH EVERY DAY WITH FOOD No venlafaxin e ER 150 mg capsule,ex tended release 24 hr TAKE 1 CAPSULE BY MOUTH EVERY DAY WITH FOOD [facility] Lisinopril- hydroCHLORO thiazide 10-12.5 MG Lisinopril- hydroCHLORO thiazide 10-12.5 MG No 1{table t} QD Lisinopril -hydroCHLO ROthiazide 10-12.5 MG Venlafaxine HCl ER 150 MG Venlafaxine HCl ER 150 MG No 1{capsu le_with _food} QD Venlafaxin e HCl ER 150 MG traZODone HCl 100 MG traZODone HCl 100 MG No 1{table t_at_be dtime_a s_neede d} QD traZODone HCl 100 MG Immunizations Ordered Immunization Name Filled Immunization Name Date Status Comments Source Flucelvax - single dose syringe Flucelvax - single dose syringe 2022-04-12 08:45:00 Completed [facility] Flucelvax - single dose syringe Flucelvax - single dose syringe 2022-04-12 08:45:00 Completed [facility] Flucelvax - single dose syringe Flucelvax - single dose syringe 2022-04-12 08:45:00 Completed [facility] Flucelvax - single dose syringe Flucelvax - single dose syringe 2022-04-12 08:45:00 Completed [facility] Afluria Afluria 2021-04-02 14:02:00 Completed [facility] Afluria Afluria 2021-04-02 14:02:00 Completed [facility] Afluria Afluria 2021-04-02 14:02:00 Completed [facility] Afluria Afluria 2021-04-02 14:02:00 Completed [facility] Afluria Afluria 2021-04-02 14:02:00 Completed [facility] Afluria Afluria 2021-04-02 14:02:00 Completed [facility] Afluria single dose Afluria single dose 08:10:00 Completed [facility] Afluria single dose Afluria single dose 08:10:00 Completed [facility] Afluria single dose Afluria single dose 08:10:00 Completed [facility] Afluria single dose Afluria single dose 08:10:00 Completed [facility] Afluria single dose Afluria single dose 08:10:00 Completed [facility] Afluria single dose Afluria single dose 08:10:00 Completed [facility] Adacel (Tdap) Adacel (Tdap) 2019-05-08 08:56:00 Completed [facility] Adacel (Tdap) Adacel (Tdap) 2019-05-08 08:56:00 Completed [facility] Adacel (Tdap) Adacel (Tdap) 2019-05-08 08:56:00 Completed [facility] Adacel (Tdap) Adacel (Tdap) 2019-05-08 08:56:00 Completed [facility] Adacel (Tdap) Adacel (Tdap) 2019-05-08 08:56:00 Completed [facility] Adacel (Tdap) Adacel (Tdap) 2019-05-08 08:56:00 Completed [facility] Afluria single dose Afluria single dose Unknown Completed [facility] Afluria Afluria Unknown Completed [facility] Flucelvax - single dose syringe Flucelvax - single dose syringe Unknown Completed [facility] Adacel (Tdap) Adacel (Tdap) Unknown Completed [facility] Afluria single dose Afluria single dose Unknown Completed [facility] Afluria Afluria Unknown Completed [facility] Flucelvax - single dose syringe Flucelvax - single dose syringe Unknown Completed [facility] Adacel (Tdap) Adacel (Tdap) Unknown Completed [facility] Afluria single dose Afluria single dose Unknown Completed [facility] Afluria Afluria Unknown Completed [facility] Flucelvax - single dose syringe Flucelvax - single dose syringe Unknown Completed [facility] Adacel (Tdap) Adacel (Tdap) Unknown Completed [facility] Afluria single dose Afluria single dose Unknown Completed [facility] Afluria Afluria Unknown Completed [facility] Flucelvax - single dose syringe Flucelvax - single dose syringe Unknown Completed [facility] Adacel (Tdap) Adacel (Tdap) Unknown Completed [facility] Afluria single dose Afluria single dose Unknown Completed [facility] Afluria Afluria Unknown Completed [facility] Flucelvax - single dose syringe Flucelvax - single dose syringe Unknown Completed [facility] Adacel (Tdap) Adacel (Tdap) Unknown Completed [facility] Afluria (IIV4) - 3 years and older - SDS - 0.5mL Afluria (IIV4) - 3 years and older - SDS - 0.5mL Unknown Completed [facility] Afluria Afluria Unknown Completed [facility] Flucelvax (ccIIV4) - SDS - 0.5mL Flucelvax (ccIIV4) - SDS - 0.5mL Unknown Completed [facility] Adacel (Tdap) Adacel (Tdap) Unknown Completed [facility] Afluria (IIV4) - 3 years and older - SDS - 0.5mL Afluria (IIV4) - 3 years and older - SDS - 0.5mL Unknown Completed [facility] Afluria Afluria Unknown Completed [facility] Flucelvax (ccIIV4) - SDS - 0.5mL Flucelvax (ccIIV4) - SDS - 0.5mL Unknown Completed [facility] Adacel (Tdap) Adacel (Tdap) Unknown Completed [facility] Afluria (IIV4) - 3 years and older - SDS - 0.5mL Afluria (IIV4) - 3 years and older - SDS - 0.5mL Unknown Completed [facility] Afluria Afluria Unknown Completed [facility] Flucelvax (ccIIV4) - SDS - 0.5mL Flucelvax (ccIIV4) - SDS - 0.5mL Unknown Completed [facility] Adacel (Tdap) Adacel (Tdap) Unknown Completed [facility] Afluria (IIV4) - 3 years and older - SDS - 0.5mL Afluria (IIV4) - 3 years and older - SDS - 0.5mL Unknown Completed [facility] Afluria Afluria Unknown Completed [facility] Flucelvax (ccIIV4) - SDS - 0.5mL Flucelvax (ccIIV4) - SDS - 0.5mL Unknown Completed [facility] Adacel (Tdap) Adacel (Tdap) Unknown Completed [facility] Afluria (IIV4) - 3 years and older - SDS - 0.5mL Afluria (IIV4) - 3 years and older - SDS - 0.5mL Unknown Completed [facility] Afluria Afluria Unknown Completed [facility] Flucelvax (ccIIV4) - SDS - 0.5mL Flucelvax (ccIIV4) - SDS - 0.5mL Unknown Completed [facility] Adacel (Tdap) Adacel (Tdap) Unknown Completed [facility] Afluria (IIV4) - 3 years and older - SDS - 0.5mL Afluria (IIV4) - 3 years and older - SDS - 0.5mL Unknown Completed [facility] Afluria Afluria Unknown Completed [facility] Flucelvax (ccIIV4) - SDS - 0.5mL Flucelvax (ccIIV4) - SDS - 0.5mL Unknown Completed [facility] Adacel (Tdap) Adacel (Tdap) Unknown Completed [facility] Vital Signs Vital Name Observation Time Observation Value Comments S ource height 2024-02-19 09:00:00 63 [in_i] Commo n [facility] weight 2024-02-19 09:00:00 256.0 [lb_av] [facility] temperature 2024-02-19 09:00:00 98.0 [degF] Com mon [facility] bmi 2024-02-19 09:00:00 45.34 kg/m2 Comm on [facility] oximetry 2024-02-19 09:00:00 98 % Commo n [facility] respiratory rate 2024-02-19 09:00:00 18 /min [facility] blood pressure systolic 2024-02-19 09:00:00 136 mm[Hg] [facility] blood pressure diastolic 2024-02-19 09:00:00 77 mm[Hg] [facility] BMI (Body Mass Index) 2023-09-26 00:00:00 44.5 kg/m2 [facility] BP Systolic 2023-09-26 00:00:00 150 mm[Hg] [facility] Body Weight 2023-09-26 00:00:00 251 [lb_av] [facility] BP Diastolic 2023-09-26 00:00:00 80 mm[Hg] [facility] Height 2023-09-26 00:00:00 63 [in_i] [facility] height 2023-09-07 08:40:00 63 [in_i] Commo n [facility] weight 2023-09-07 08:40:00 247.0 [lb_av] [facility] temperature 2023-09-07 08:40:00 97.9 [degF] Com mon [facility] bmi 2023-09-07 08:40:00 43.75 kg/m2 Comm on [facility] oximetry 2023-09-07 08:40:00 96 % Commo n [facility] respiratory rate 2023-09-07 08:40:00 17 /min [facility] blood pressure systolic 2023-09-07 08:40:00 139 mm[Hg] Common [facility] blood pressure diastolic 2023-09-07 08:40:00 77 mm[Hg] [facility] height 2023-09-07 08:40:00 63 [in_i] Commo n [facility] weight 2023-09-07 08:40:00 247.0 [lb_av] [facility] temperature 2023-09-07 08:40:00 97.9 [degF] Com mon [facility] bmi 2023-09-07 08:40:00 43.75 kg/m2 Comm on [facility] oximetry 2023-09-07 08:40:00 96 % Commo n [facility] respiratory rate 2023-09-07 08:40:00 17 /min [facility] blood pressure systolic 2023-09-07 08:40:00 139 mm[Hg] [facility] blood pressure diastolic 2023-09-07 08:40:00 77 mm[Hg] [facility] height 2023-05-09 08:00:00 63 [in_i] Commo n [facility] weight 2023-05-09 08:00:00 247.6 [lb_av] [facility] temperature 2023-05-09 08:00:00 98.3 [degF] Com mon [facility] bmi 2023-05-09 08:00:00 43.86 kg/m2 [facility] oximetry 2023-05-09 08:00:00 93 % Commo n [facility] respiratory rate 2023-05-09 08:00:00 16 /min [facility] blood pressure systolic 2023-05-09 08:00:00 138 mm[Hg] [facility] blood pressure diastolic 2023-05-09 08:00:00 86 mm[Hg] [facility] height 2023-01-23 10:50:00 63 [in_i] Commo n [facility] weight 2023-01-23 10:50:00 240.0 [lb_av] [facility] temperature 2023-01-23 10:50:00 97.4 [degF] Com mon [facility] bmi 2023-01-23 10:50:00 42.51 kg/m2 Comm on [facility] oximetry 2023-01-23 10:50:00 98 % Commo n [facility] respiratory rate 2023-01-23 10:50:00 18 /min [facility] blood pressure systolic 2023-01-23 10:50:00 133 mm[Hg] [facility] blood pressure diastolic 2023-01-23 10:50:00 72 mm[Hg] Common [facility] height 2022-10-24 11:50:00 63 [in_i] Commo n [facility] weight 2022-10-24 11:50:00 253 [lb_av] Comm on [facility] bmi 2022-10-24 11:50:00 44.81 kg/m2 Comm on [facility] blood pressure systolic 2022-10-24 11:50:00 130 mm[Hg] [facility] blood pressure diastolic 2022-10-24 11:50:00 72 mm[Hg] Common [facility] height 2022-07-01 11:20:00 63 [in_i] Commo n [facility] weight 2022-07-01 11:20:00 243 [lb_av] Comm on [facility] bmi 2022-07-01 11:20:00 43.04 kg/m2 [facility] height 2022-06-20 09:00:00 63 [in_i] Commo n [facility] weight 2022-06-20 09:00:00 243 [lb_av] Comm on [facility] temperature 2022-06-20 09:00:00 98 [degF] Comm on [facility] bmi 2022-06-20 09:00:00 43.04 kg/m2 [facility] blood pressure systolic 2022-06-20 09:00:00 132 mm[Hg] Common [facility] blood pressure diastolic 2022-06-20 09:00:00 76 mm[Hg] [facility] height 2022-04-12 08:20:00 63 [in_i] Commo n [facility] weight 2022-04-12 08:20:00 243.5 [lb_av] Co on [facility] temperature 2022-04-12 08:20:00 97.8 [degF] Com [facility] bmi 2022-04-12 08:20:00 43.13 kg/m2 Comm on [facility] oximetry 2022-04-12 08:20:00 96 % Commo n [facility] respiratory rate 2022-04-12 08:20:00 17 /min [facility] blood pressure systolic 2022-04-12 08:20:00 121 mm[Hg] Common [facility] blood pressure diastolic 2022-04-12 08:20:00 76 mm[Hg] Common [facility] height 2022-01-10 08:20:00 63 [in_i] Commo n [facility] weight 2022-01-10 08:20:00 236.3 [lb_av] Co mmon [facility] temperature 2022-01-10 08:20:00 97.9 [degF] Com [facility] bmi 2022-01-10 08:20:00 41.85 kg/m2 Comm on [facility] oximetry 2022-01-10 08:20:00 96 % Commo n [facility] respiratory rate 2022-01-10 08:20:00 16 /min Common [facility] blood pressure systolic 2022-01-10 08:20:00 132 mm[Hg] Common [facility] blood pressure diastolic 2022-01-10 08:20:00 72 mm[Hg] [facility] height 2021-12-09 10:30:00 63 [in_i] Commo n [facility] weight 2021-12-09 10:30:00 230.4 [lb_av] Co m[facility] temperature 2021-12-09 10:30:00 97.7 [degF] Com mon [facility] bmi 2021-12-09 10:30:00 40.81 kg/m2 Comm on [facility] oximetry 2021-12-09 10:30:00 96 % Commo n [facility] respiratory rate 2021-12-09 10:30:00 17 /min [facility] blood pressure systolic 2021-12-09 10:30:00 135 mm[Hg] [facility] blood pressure diastolic 2021-12-09 10:30:00 76 mm[Hg] [facility] height 2021-07-28 11:10:00 63 [in_i] Commo n [facility] weight 2021-07-28 11:10:00 225 [lb_av] Comm on [facility] temperature 2021-07-28 11:10:00 98 [degF] Comm on [facility] bmi 2021-07-28 11:10:00 39.85 kg/m2 Comm on [facility] blood pressure systolic 2021-07-28 11:10:00 130 mm[Hg] [facility] blood pressure diastolic 2021-07-28 11:10:00 75 mm[Hg] [facility] height 2021-07-23 09:40:00 63 [in_i] Commo n [facility] weight 2021-07-23 09:40:00 226 [lb_av] Comm on [facility] bmi 2021-07-23 09:40:00 40.03 kg/m2 Comm on [facility] height 2021-04-27 14:00:00 63 [in_i] Commo n [facility] weight 2021-04-27 14:00:00 226.9 [lb_av] Co [facility] temperature 2021-04-27 14:00:00 97.1 [degF] Com mon [facility] bmi 2021-04-27 14:00:00 40.19 kg/m2 Comm on [facility] oximetry 2021-04-27 14:00:00 99 % Commo n [facility] respiratory rate 2021-04-27 14:00:00 18 /min Common [facility] blood pressure systolic 2021-04-27 14:00:00 131 mm[Hg] [facility] blood pressure diastolic 2021-04-27 14:00:00 71 mm[Hg] [facility] Procedures Procedure Date / Time Performed Performing Clinicia n Source Appendectomy 2017-07-03 00:00:00 [facility] M edical Cholecystectomy (Gallbladder) 2017-07-03 00:00:00 [facility] Plan [facility] Care Planned Activity Planned Date Details Comments Source Diagnostic Test Pending 2023-09-26 00:00:00 FSH (follicle-stimulati ng hormone), serum [code = FSH (follicle-stimulati ng hormone), serum] [facility] Diagnostic Test Pending 2023-09-26 00:00:00 estr adiol, serum [code = estradiol, serum] [facility] Diagnostic Test Pending 2023-09-26 00:00:00 pap, LB + HPV [code = pap, LB + HPV] [facility] Future Appointment 2024-09-26 09:30:00 Joana ashby, Kenisha Causey; [address], [place] [address] [facility] Encounters Start Date/Time End Date/Time Encounter Type Admission Type Attending Clinicians Care Facility Care Department Encounter ID Source 2022-06-16 14:28:00 [facility] [id number] [facility] 2022-01-11 07:41:00 [facility] [id number] [facility] 2021-12-10 08:01:01 [facility] [id number] [facility] 2021-12-08 14:25:01 [facility] [id number] [facility] 2021-07-28 14:39:35 [facility] [id number] [facility] 2021-07-28 14:05:46 [facility] [id number] [facility] 2021-07-28 13:54:15 [facility] [id number] [facility] 2021-07-28 13:22:16 [facility] [id number] [facility] 2021-07-28 13:05:52 [facility] [id number] [facility] 2021-07-28 12:08:20 [facility] [id number] [facility] 2021-07-28 12:07:47 [facility] [id number] [facility] 2021-07-28 11:30:03 [facility] [id number] [facility] 2024-02-19 00:00:00 2024-02-19 00:00:00 OFFICE VISIT ESTAB PT LEVEL 4 STLMLC STLMLC [id number] [facility] 2024-01-30 00:00:00 2024-01-30 00:00:00 (TEL) STLMLC STLMLC [id number] [facility] 2024-01-23 00:00:00 2024-01-23 00:00:00 (TEL) STLMLC STLMLC [id number] [facility] 2023-09-27 00:00:00 2023-09-27 00:00:00 Outpatient GC_GCBZW_Ka diyala_S PRIV PRIV [id number] [facility] 2023-09-26 00:00:00 2023-09-26 00:00:00 Enid Tomlinson MD: [address] [place] [address] Dr Causey, [address] [address], [place] [address] , Ph. GC_GCBZW_Ka diyala_S [facility] - GC_GCBZW_[facility] [id number] [facility] 2023-09-14 00:00:00 2023-09-14 00:00:00 (TEL) STLMLC STLMLC [id number] [facility] 2023-09-08 00:00:00 2023-09-08 00:00:00 Outpatient GC_GCBZW_Ka diyala_S PRIV PRIV [id number] [facility] 2023-09-07 00:00:00 2023-09-07 00:00:00 OFFICE VISIT ESTAB PT LEVEL 4 STLMLC STLMLC [id number] [facility] 2023-07-17 00:00:00 2023-07-17 00:00:00 (TEL) STLMLC STLMLC [id number] [facility] 2023-05-09 00:00:00 2023-05-09 00:00:00 (WELLNESS) Wellness Visit STLMLC STLMLC [id number] [facility] 2023-05-05 00:00:00 2023-05-05 00:00:00 (TEL) STLMLC STLMLC [id number] [facility] 2023-01-23 00:00:00 2023-01-23 00:00:00 OFFICE VISIT ESTAB PT LEVEL 4 STLMLC STLMLC [id number] [facility] 2023-01-23 00:00:00 2023-01-23 00:00:00 (TEL) STLMLC STLMLC [id number] [facility] 2022-10-24 00:00:00 2022-10-24 00:00:00 OFFICE VISIT ESTAB PT LEVEL 4 STLMLC STLMLC [id number] [facility] 2022-10-24 00:00:00 2022-10-24 00:00:00 (TEL) STLMLC STLMLC [id number] [facility] 2022-09-26 00:00:00 2022-09-26 00:00:00 (TEL) STLMLC STLMLC [id number] [facility] 2022-07-01 00:00:00 2022-07-01 00:00:00 (TEL) STLMLC STLMLC [id number] [facility] 2022-07-01 00:00:00 2022-07-01 00:00:00 OFFICE VISIT EST PT LEVEL 3 STLMLC STLMLC [id number] [facility] 2022-06-20 00:00:00 2022-06-20 00:00:00 OFFICE VISIT ESTAB PT LEVEL 4 STLMLC STLMLC [id number] [facility] 2022-04-12 00:00:00 2022-04-12 00:00:00 PREV VISIT EST AGE 40-64 STLMLC STLMLC [id number] [facility] 2022-01-10 00:00:00 2022-01-10 00:00:00 OFFICE VISIT ESTAB PT LEVEL 4 STLMLC STLMLC [id number] [facility] 2021-12-09 00:00:00 2021-12-09 00:00:00 OFFICE VISIT ESTAB PT LEVEL 4 STLMLC STLMLC [id number] [facility] 2021-07-28 00:00:00 2021-07-28 00:00:00 OFFICE VISIT EST PT LEVEL 3 STLMLC STLMLC [id number] [facility] 2021-07-23 00:00:00 2021-07-23 00:00:00 OFFICE VISIT EST PT LEVEL 3 STLMLC STLMLC [id number] [facility] 2021-07-21 00:00:00 2021-07-21 00:00:00 (TEL) STLMLC STLMLC [id number] [facility] 2021-06-02 00:00:00 2021-06-02 00:00:00 (TEL) STLMLC STLMLC [id number] [facility] 2021-04-27 00:00:00 2021-04-27 00:00:00 PREV VISIT EST AGE 40-64 STLMLC STLMLC [id number] [facility] 2020-12-31 00:00:00 2020-12-31 00:00:00 Outpatient STLMLC STLMLC [id number] [facility] 2020-11-19 00:00:00 2020-11-19 00:00:00 Outpatient STLMLC STLMLC [id number] [facility] 2020-11-18 00:00:00 2020-11-18 00:00:00 Outpatient STLMLC STLMLC [id number] [facility] 2020-05-27 00:00:00 2020-05-27 00:00:00 Outpatient STLMLC STLMLC [id number] [facility] 2020-05-07 00:00:00 2020-05-07 00:00:00 Outpatient STLMLC STLMLC [id number] [facility] 2020-01-07 09:45:00 2020-01-07 09:45:[address] [facility] [id number] [facility] Results Test Description Test Time Test Comments Results Result Co mments Source HEMOGLOBIN [id number] 00:00:00* Test Item Value Reference Range Interpretation Comme nts HEMOGLOBIN A1c (test code = 4548-4) 5.9 % See_Comment H [Automated messa [employer]] The system which generated this result transmitted reference range: 4.2-5.6 %. The reference range was not used to interpret this result as normal/abnormal. HEMOGLOBIN [id number] 00:00:00* Test Item Value Reference Range Interpretation Comme nts HEMOGLOBIN A1c (test code = 4548-4) 6.0 % See_Comment H [Automated messa [employer]] The system which generated this result transmitted reference range: 4.2-5.6 %. The reference range was not used to interpret this result as normal/abnormal.
[2024-05-21] MEDS ORDERED: methocarbamoL 500 MG TAB ONE (10:09)
[2024-05-21] MEDS ORDERED: KETOROLAC 30 MG/ML INJ ONE (10:09)
[2024-05-21] MEDS ORDERED: ACETAMINOPHEN 500 MG TAB ONE (10:09)
--- NOTE | 2024-05-21 10:10 | RAD REPORT ---
EXAMINATION: XR LEFT KNEE CLINICAL INDICATION: Swelling;Pain TECHNIQUE: Multiple projections of the left knee were obtained. COMPARISON: 04/05/2022 FINDINGS: Patella yossi is noted, new since prior study. No acute fracture or dislocation seen. No si gnificant joint effusion.
--- NOTE | 2024-05-21 10:38 | EDPHYS ---
Physician Documentation [facility] Name: Mahnaz Pimentel Age: 49 yrs Sex: Female : 1975 Arrival Date: 05/21/2024 Time: 07:59 Bed 5 Private MD: ED Physician Riley Galo HPI: 05/21 09:57 This 49 yrs old Female presents to ER via Wheelchair with complaints of Knee ec2 Injury. 09:57 Patient arrives today for evaluation of a left knee injury. States that she was getting ec2 to her car subsequently felt her knee pop and is having pain in her left knee. States that she believes she dislocated her kneecap and reduce it subsequently. States that she has had issues with her right patella in the past. No falls injuries or other trauma.. Historical: - Allergies: 08:24 No Known Allergies; iw - PMHx: 08:24 Hypertension; iw - PSHx: 08:24 Appendectomy; Cholecystectomy; iw - Immunization history:: Adult Immunizations up to date. - Infectious Disease History:: Denies. - Social history:: Smoking status: Patient denies any tobacco usage or history of. ROS: 09:57 Constitutional: as per hpi ec2 Exam: 09:57 Constitutional: GEN: NAD Head: atraumatic Eyes: EOMI Ears: External ears are ec2 normal. CV: regular rate LUNGS: no respiratory distress ABD: non-distended SKIN: no evidence of rashes MSK: Left knee with intact range of motion, no significant effusion appreciated. Minimal TTP over the patella. No deformities present. Vital Signs: 08:22 BP 161 / 98; Pulse 97; Resp 16; Pulse Ox 95% on R/A; Weight 113.4 kg; Height 5 ft. 3 iw in. ; Pain 8/10; 11:06 BP 138 / 65; Pulse 90; Resp 15; Pulse Ox 98% ; Pain 4/10; jl7 08:22 Body Mass Index 44.29 (113.40 kg, 160.02 cm) iw 08:22 Pain Scale: Adult iw 11:06 Pain Scale: Adult jl7 MDM: 09:39 Medical Screening Exam initiated ec2 09:57 Data reviewed: vital signs, nurses notes. ED course: Patient arrives today for ec2 evaluation of a left knee injury. Examination remarkable for left knee findings as above. Will obtain radiograph to evaluate for bony fracture. Suspect patellar dislocation with subsequent reduction. Doubt fracture.. 05/21 09:53 Order name: Knee Left 3 View; Complete Time: 10:15 EDMS 05/21 10:27 Order name: Knee Immobilizer; Complete Time: 11:03 ec2 Administered Medications: 10:15 Drug: Ketorolac IM 30 mg IM once Route: IM; Site: right deltoid; tm6 11:05 Follow up: Response: No adverse reaction; Pain is decreased jl7 10:15 Drug: Acetaminophen PO 1000 mg PO once Route: PO; tm6 11:05 Follow up: Response: No adverse reaction; Pain is decreased jl7 10:15 Drug: Methocarbamol PO 500 mg PO once Route: PO; tm6 11:05 Follow up: Response: No adverse reaction; Pain is decreased jl7 Disposition Summary: 05/21/24 10:37 Discharge Ordered Notes: Location: Home ec2 Condition: Stable ec2 Diagnosis - Lateral dislocation of left patella ec2 Followup: ec2 - With: Private Physician - When: - Reason: Re-evaluation by your physician Followup: ec2 - With: Pillo Plaza MD - When: - Reason: Recheck today's complaints Discharge Instructions: - Discharge Summary Sheet ec2 - Patellar Dislocation ec2 Forms: - Work release form jl7 - Medication Reconciliation Form ec2 - Antibiotic Education ec2 - Prescription Opioid Use ec2 - Patient Portal Instructions ec2 - Leadership Thank You Letter ec2 Signatures: Dispatcher [employer] Betty Saucedo RN RN iw Corral, Edwin, MD MD ec2 Dyana Saul RN RN tm6 Wilder Hancock RN jl7 Corrections: (The following items were deleted from the chart) 08:25 Knee Right 3 View+RAD.[email or web address].[email or web address] ordered. EDWY EDWY
--- NOTE | 2024-05-21 10:38 | ER ---
Nurse's Notes [facility] Name: Mahnaz Pimentel Age: 49 yrs Sex: Female : 1975 Arrival Date: 05/21/2024 Time: 07:59 Bed 5 Private MD: Diagnosis: Lateral dislocation of left patella Presentation: 05/21 08:22 Chief complaint: Patient states: sat down in her car and her left knee popped out of iw place, it went back in but it's still hurting. Coronavirus screen: At this time, the client does not indicate any symptoms associated with coronavirus-19. Ebola Screen: No symptoms or risks identified at this time. Initial Sepsis Screen: Does the patient meet any 2 criteria? No. Patient's initial sepsis screen is negative. Does the patient have a suspected source of infection? No. Patient's initial sepsis screen is negative. Risk Assessment: Do you want to hurt yourself or someone else? Patient reports no desire to harm self or others. Onset of symptoms was May 21, 2024. 08:22 Method Of Arrival: Wheelchair iw 08:22 Acuity: RAHEEM 4 iw Historical: - Allergies: 08:24 No Known Allergies; iw - PMHx: 08:24 Hypertension; iw - PSHx: 08:24 Appendectomy; Cholecystectomy; iw - Immunization history:: Adult Immunizations up to date. - Infectious Disease History:: Denies. - Social history:: Smoking status: Patient denies any tobacco usage or history of. Screenin:06 [facility] ED Fall Risk Assessment (Adult) History of falling in the last 3 months, jl7 including since admission Yes- single mechanical fall (1 pt) Confusion or Disorientation No (0 pts) Intoxicated or Sedated No (0 pts) Impaired Gait No (0 pts) Mobility Assist Device Used Yes (1 pt) Altered Elimination No (0 pt) Score/Fall Risk Level 0 - 2 = Low Risk Oriented to surroundings, Maintained a safe environment. Abuse screen: Denies threats or abuse. Denies injuries from another. Nutritional screening: No deficits noted. Tuberculosis screening: No symptoms or risk factors identified. Assessment: 11:06 Reassessment: Patient appears in no apparent distress at this time. Pain: Pain jl7 currently is 4 out of 10 on a pain scale. Musculoskeletal:. Vital Signs: 08:22 BP 161 / 98; Pulse 97; Resp 16; Pulse Ox 95% on R/A; Weight 113.4 kg; Height 5 ft. 3 iw in. ; Pain 8/10; 11:06 BP 138 / 65; Pulse 90; Resp 15; Pulse Ox 98% ; Pain 4/10; jl7 08:22 Body Mass Index 44.29 (113.40 kg, 160.02 cm) iw 08:22 Pain Scale: Adult iw 11:06 Pain Scale: Adult jl7 ED Course: 08:03 Patient arrived in ED. mg5 08:23 Triage completed. iw 08:24 Arm band placed on. iw 09:20 Riley Galo MD is Attending Physician. ec2 09:53 Knee Left 3 View In Process Unspecified. EDMS 10:06 Dyana Saul RN is Primary Nurse. tm6 10:37 Pillo Plaza MD is Referral Physician. ec2 11:00 Knee immobilizer applied on left knee. jl7 11:06 Patient has correct armband on for positive identification. Provided Education on: jl7 splint use. 11:07 No provider procedures requiring assistance completed. Patient did not have IV access jl7 during this emergency room visit. Administered Medications: 10:15 Drug: Ketorolac IM 30 mg IM once Route: IM; Site: right deltoid; tm6 11:05 Follow up: Response: No adverse reaction; Pain is decreased jl7 10:15 Drug: Acetaminophen PO 1000 mg PO once Route: PO; tm6 11:05 Follow up: Response: No adverse reaction; Pain is decreased jl7 10:15 Drug: Methocarbamol PO 500 mg PO once Route: PO; tm6 11:05 Follow up: Response: No adverse reaction; Pain is decreased jl7 Medication: 11:06 VIS not applicable for this client. jl7 Outcome: 10:37 Discharge ordered by . ec2 11:08 Discharged to home via wheelchair, with friend, jl7 11:08 Condition: stable 11:08 Discharge instructions given to patient, Instructed on discharge instructions, follow up and referral plans. Demonstrated understanding of instructions, follow-up care, splint care, 11:08 Patient left the ED. jl7 Signatures: Dispatcher [employer] EDMS Betty Bueno RN RN iw Wilder Hancock RN RN jl7 Joana Schaeffer mg5 Riley Galo MD MD ec2 Dyana Saul, RN RN tm6
[2024-05-21 11:14] VITALS: BP 138/65; O2SAT 98
== END 2024-05-21 11:08 | disposition home or self-care (01) ==
LOC: ER 07:59
DX: S83.015A Lateral dislocation of left patella, initial encounter (principal)
CPT/HCPCS: 96372; 99284

== ENCOUNTER 2024-09-25 10:47 | Inpatient (IN) | payer BC, SELFPAY ==
--- OUTSIDE RECORDS SUMMARY | 2024-09-25 10:51 | XMS REPORT | Continuity of Care Document ---
Author Name Unknown Address [address] [facility] [place] [address] [facility] [place] Address [address] 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 6 [id number] 2021 00:00:00 [facility] [place] [facility] (PP[facility]) [id number] 2021 00:00:00 [employer] 53 [id number] 2020 00:00:00 [facility] Problems Condition Name Condition Details Condition Category [...] Hypertensi on Problem Active 09-25 00:00: 00 [facility] Medical Hypertensi ve disorder Hypertensi ve Disorder Problem Active 09-25 00:00: 00 [facility] Amenorrhea Amenorrhea Problem Active 09-25 00:00: 00 [facility] [id number] Adult BMI 40.0-44.9 kg/sq m Problem [facility] [id number] Insomnia, unspecifie d type Problem [facility] [id number] Morbid (severe) obesity due to excess calories Problem [facility] [id number] Generalize d anxiety disorder Problem [facility] [id number] Current moderate episode of major depressive disorder without prior episode Problem [facility] [id number] Abnormal mammogram of left breast Problem [facility] [id number] Injury of left knee, initial encounter Problem [facility] Social History Social Habit Start Date Stop Date Quantity Comments Source History of Tobacco Use [facility] Sex Assigned At [facility] Smoking Status Start Date Stop Date Source Never Smoker [facility] Medications Ordered Medication Name Filled Medication Name Start Date Stop Date Current Medication? Ordering Clinician Indication Dosage Frequency Signature (SIG) Comments Components Source Meloxicam 7.5 MG Meloxicam 7.5 MG 2023-07 00:00: 00 No 1{table t} QD Meloxicam 7.5 MG lisinopril 10 mg-hydrochl orothiazide 12.5 mg tablet TAKE 1 TABLET BY MOUTH EVERY DAY lisinopril 10 mg-hydrochl orothiazide 12.5 mg tablet TAKE 1 TABLET BY MOUTH EVERY DAY No lisinopril 10 mg-hydroch lorothiazi de 12.5 mg tablet TAKE 1 TABLET BY MOUTH EVERY DAY [facility] venlafaxine ER 150 mg capsule,ext ended release 24 hr TAKE 1 CAPSULE BY MOUTH EVERY DAY WITH FOOD venlafaxine ER 150 mg capsule,ext ended release 24 hr TAKE 1 CAPSULE BY MOUTH EVERY DAY WITH FOOD No venlafaxin e ER 150 mg capsule,ex tended release 24 hr TAKE 1 CAPSULE BY MOUTH EVERY DAY WITH FOOD [facility] Lisinopril- hydroCHLORO thiazide 10-12.5 MG Lisinopril- hydroCHLORO [...] - single dose syringe 2022-04-12 08:45:00 Completed [facility] Flucelvax - single dose syringe Flucelvax - single dose syringe 2022-04-12 08:45:00 Completed [facility] Flucelvax - single dose syringe Flucelvax - single dose syringe 2022-04-12 08:45:00 Completed [facility] Flucelvax - single dose syringe Flucelvax - single dose syringe 2022-04-12 08:45:00 Completed [facility] Afluria Afluria 2021-04-02 14:02:00 Completed [facility] Afluria Afluria 2021-04-02 14:02:00 Completed [facility] Afluria Afluria 2021-04-02 14:02:00 Completed [facility] Afluria Afluria 2021-04-02 14:02:00 Completed [facility] Afluria Afluria 2021-04-02 14:02:00 Completed [facility] Afluria Afluria 2021-04-02 14:02:00 Completed [facility] Afluria single dose Afluria single dose 08:10:00 Completed [facility] Afluria single dose Afluria single dose 08:10:00 Completed [facility] Afluria single dose Afluria single dose 08:10:00 Completed [facility] Afluria single dose Afluria single dose 08:10:00 Completed [facility] Afluria single dose Afluria single dose 08:10:00 Completed [facility] Afluria single dose Afluria single dose 08:10:00 Completed [facility] Adacel (Tdap) Adacel (Tdap) 2019-05-08 08:56:00 Completed [facility] Adacel (Tdap) Adacel (Tdap) 2019-05-08 08:56:00 Completed [facility] Adacel (Tdap) Adacel (Tdap) 2019-05-08 08:56:00 Completed [facility] Adacel (Tdap) Adacel (Tdap) 2019-05-08 08:56:00 Completed [facility] Adacel (Tdap) Adacel (Tdap) 2019-05-08 08:56:00 Completed [facility] Adacel (Tdap) Adacel (Tdap) 2019-05-08 08:56:00 Completed [facility] Afluria single dose Afluria single dose Unknown Completed [facility] Afluria Afluria Unknown Completed [facility] Flucelvax - single dose syringe Flucelvax - single dose syringe Unknown Completed [facility] Adacel (Tdap) Adacel (Tdap) Unknown Completed [facility] Afluria single dose Afluria single dose Unknown Completed [facility] Afluria Afluria Unknown Completed [facility] Flucelvax - single dose syringe Flucelvax - single dose syringe Unknown Completed [facility] Adacel (Tdap) Adacel (Tdap) Unknown Completed [facility] Afluria single dose Afluria single dose Unknown Completed [facility] Afluria Afluria Unknown Completed [facility] Flucelvax - single dose syringe Flucelvax - single dose syringe Unknown Completed [facility] Adacel (Tdap) Adacel (Tdap) Unknown Completed [facility] Afluria single dose Afluria single dose Unknown Completed [facility] Afluria Afluria Unknown Completed [facility] Flucelvax - single dose syringe Flucelvax - single dose syringe Unknown Completed [facility] Adacel (Tdap) Adacel (Tdap) Unknown Completed [facility] Afluria single dose Afluria single dose Unknown Completed [facility] Afluria Afluria Unknown Completed [facility] Flucelvax - single dose syringe Flucelvax - single dose syringe Unknown Completed [facility] Adacel (Tdap) Adacel (Tdap) Unknown Completed [facility] Afluria (IIV4) - 3 years and older - SDS - 0.5mL Afluria (IIV4) - 3 years and older - SDS - 0.5mL Unknown Completed [facility] Afluria Afluria Unknown Completed [facility] Flucelvax (ccIIV4) - SDS - 0.5mL Flucelvax (ccIIV4) - SDS - 0.5mL Unknown Completed [facility] Adacel (Tdap) Adacel (Tdap) Unknown Completed [facility] Afluria (IIV4) - 3 years and older - SDS - 0.5mL Afluria (IIV4) - 3 years and older - SDS - 0.5mL Unknown Completed [facility] Afluria Afluria Unknown Completed [facility] Flucelvax (ccIIV4) - SDS - 0.5mL Flucelvax (ccIIV4) - SDS - 0.5mL Unknown Completed [facility] Adacel (Tdap) Adacel (Tdap) Unknown Completed [facility] Afluria (IIV4) - 3 years and older - SDS - 0.5mL Afluria (IIV4) - 3 years and older - SDS - 0.5mL Unknown Completed [facility] Afluria Afluria Unknown Completed [facility] Flucelvax (ccIIV4) - SDS - 0.5mL Flucelvax (ccIIV4) - SDS - 0.5mL Unknown Completed [facility] Adacel (Tdap) Adacel (Tdap) Unknown Completed [facility] Afluria (IIV4) - 3 years and older - SDS - 0.5mL Afluria (IIV4) - 3 years and older - SDS - 0.5mL Unknown Completed [facility] Afluria Afluria Unknown Completed [facility] Flucelvax (ccIIV4) - SDS - 0.5mL Flucelvax (ccIIV4) - SDS - 0.5mL Unknown Completed [facility] Adacel (Tdap) Adacel (Tdap) Unknown Completed [facility] Afluria (IIV4) - 3 years and older - SDS - 0.5mL Afluria (IIV4) - 3 years and older - SDS - 0.5mL Unknown Completed [facility] Afluria Afluria Unknown Completed [facility] Flucelvax (ccIIV4) - SDS - 0.5mL Flucelvax (ccIIV4) - SDS - 0.5mL Unknown Completed [facility] Adacel (Tdap) Adacel (Tdap) Unknown Completed [facility] Afluria (IIV4) - 3 years and older - SDS - 0.5mL Afluria (IIV4) - 3 years and older - SDS - 0.5mL Unknown Completed [facility] Afluria Afluria Unknown Completed [facility] Flucelvax (ccIIV4) - SDS - 0.5mL Flucelvax (ccIIV4) - SDS - 0.5mL Unknown Completed [facility] Adacel (Tdap) Adacel (Tdap) Unknown Completed [facility] Vital Signs Vital Name Observation Time Observation Value Comments Padilla sousa height 2024-08-08 09:00:00 63 [in_i] Commo n [facility] weight 2024-08-08 09:00:00 266.4 [lb_av] Co [facility] temperature 2024-08-08 09:00:00 97.5 [degF] Com [facility] bmi 2024-08-08 09:00:00 47.19 kg/m2 Comm on [facility] oximetry 2024-08-08 09:00:00 94 % Commo n [facility] respiratory rate 2024-08-08 09:00:00 18 /min [facility] blood pressure systolic 2024-08-08 09:00:00 122 mm[Hg] [facility] blood pressure diastolic 2024-08-08 09:00:00 78 mm[Hg] [facility] height 2024-05-23 09:30:00 63 [in_i] Commo n [facility] weight 2024-05-23 09:30:00 267.2 [lb_av] Co [facility] temperature 2024-05-23 09:30:00 98.6 [degF] Com mon [facility] bmi 2024-05-23 09:30:00 47.33 kg/m2 Comm on [facility] blood pressure systolic 2024-05-23 09:30:00 134 mm[Hg] [facility] blood pressure diastolic 2024-05-23 09:30:00 78 mm[Hg] [facility] height 2024-02-19 09:00:00 63 [in_i] Commo n [facility] weight 2024-02-19 09:00:00 256.0 [lb_av] Co m[facility] temperature 2024-02-19 09:00:00 98.0 [degF] Com mon [facility] bmi 2024-02-19 09:00:00 45.34 kg/m2 Comm on [facility] oximetry 2024-02-19 09:00:00 98 % Commo n [facility] respiratory rate 2024-02-19 09:00:00 18 /min [facility] blood pressure systolic 2024-02-19 09:00:00 136 mm[Hg] [facility] blood pressure diastolic 2024-02-19 09:00:00 77 mm[Hg] [facility] height 2024-02-19 09:00:00 63 [in_i] Commo n [facility] weight 2024-02-19 09:00:00 256.0 [lb_av] Co m[facility] temperature 2024-02-19 09:00:00 98.0 [degF] Com [facility] bmi 2024-02-19 09:00:00 45.34 kg/m2 Comm on [facility] oximetry 2024-02-19 09:00:00 98 % Commo n [facility] respiratory rate 2024-02-19 09:00:00 18 /min [facility] blood pressure systolic 2024-02-19 09:00:00 136 mm[Hg] [facility] blood pressure diastolic 2024-02-19 09:00:00 77 mm[Hg] [facility] BMI (Body Mass Index) 2023-09-26 00:00:00 44.5 kg/m2 [facility] BP Systolic 2023-09-26 00:00:00 150 mm[Hg] [facility] Body Weight 2023-09-26 00:00:00 251 [lb_av] [facility] BP Diastolic 2023-09-26 00:00:00 80 mm[Hg] [facility] Height 2023-09-26 00:00:00 63 [in_i] [facility] height 2023-09-07 08:40:00 63 [in_i] Commo n [facility] weight 2023-09-07 08:40:00 247.0 [lb_av] [facility] 2023-09-07 08:40:00 97.9 [degF] Com [facility] bmi 2023-09-07 08:40:00 43.75 kg/m2 Comm on [facility] oximetry 2023-09-07 08:40:00 96 % Commo n [facility] respiratory rate 2023-09-07 08:40:00 17 /min [facility] blood pressure systolic 2023-09-07 08:40:00 139 mm[Hg] [facility] blood pressure diastolic 2023-09-07 08:40:00 77 mm[Hg] [facility] height 2023-09-07 08:40:00 63 [in_i] Commo n [facility] weight 2023-09-07 08:40:00 247.0 [lb_av] Co [facility] temperature 2023-09-07 08:40:00 97.9 [degF] Com [facility] bmi 2023-09-07 08:40:00 43.75 kg/m2 Comm on [facility] oximetry 2023-09-07 08:40:00 96 % Commo n [facility] respiratory rate 2023-09-07 08:40:00 17 /min [facility] blood pressure systolic 2023-09-07 08:40:00 139 mm[Hg] [facility] blood pressure diastolic 2023-09-07 08:40:00 77 mm[Hg] [facility] height 2023-05-09 08:00:00 63 [in_i] Commo n [facility] weight 2023-05-09 08:00:00 247.6 [lb_av] Co mmon [facility] temperature 2023-05-09 08:00:00 98.3 [degF] Com [facility] bmi 2023-05-09 08:00:00 43.86 kg/m2 Comm on [facility] oximetry 2023-05-09 08:00:00 93 % Commo n [facility] respiratory rate 2023-05-09 08:00:00 16 /min [facility] blood pressure systolic 2023-05-09 08:00:00 138 mm[Hg] [facility] blood pressure diastolic 2023-05-09 08:00:00 86 mm[Hg] [facility] height 2023-01-23 10:50:00 63 [in_i] Commo n [facility] weight 2023-01-23 10:50:00 240.0 [lb_av] Co mmon [facility] temperature 2023-01-23 10:50:00 97.4 [degF] Com [facility] bmi 2023-01-23 10:50:00 42.51 kg/m2 Comm on [facility] oximetry 2023-01-23 10:50:00 98 % Commo n [facility] respiratory rate 2023-01-23 10:50:00 18 /min [facility] blood pressure systolic 2023-01-23 10:50:00 133 mm[Hg] Common [facility] blood pressure diastolic 2023-01-23 10:50:00 72 mm[Hg] [facility] height 2022-10-24 11:50:00 63 [in_i] Commo n [facility] weight 2022-10-24 11:50:00 253 [lb_av] Comm on [facility] bmi 2022-10-24 11:50:00 44.81 kg/m2 Comm on [facility] blood pressure systolic 2022-10-24 11:50:00 130 mm[Hg] Common Spiri [facility] blood pressure diastolic 2022-10-24 11:50:00 72 mm[Hg] [facility] height 2022-07-01 11:20:00 63 [in_i] Commo n [facility] weight 2022-07-01 11:20:00 243 [lb_av] Comm on [facility] bmi 2022-07-01 11:20:00 43.04 kg/m2 Comm on [facility] height 2022-06-20 09:00:00 63 [in_i] Commo n [facility] weight 2022-06-20 09:00:00 243 [lb_av] Comm on [facility] temperature 2022-06-20 09:00:00 98 [degF] Comm on [facility] bmi 2022-06-20 09:00:00 43.04 kg/m2 Comm on [facility] blood pressure systolic 2022-06-20 09:00:00 132 mm[Hg] [facility] blood pressure diastolic 2022-06-20 09:00:00 76 mm[Hg] [facility] height 2022-04-12 08:20:00 63 [in_i] Commo n [facility] weight 2022-04-12 08:20:00 243.5 [lb_av] Co mmon [facility] temperature 2022-04-12 08:20:00 97.8 [degF] Com mon [facility] bmi 2022-04-12 08:20:00 43.13 kg/m2 Comm on [facility] oximetry 2022-04-12 08:20:00 96 % Commo n [facility] respiratory rate 2022-04-12 08:20:00 17 /min [facility] blood pressure systolic 2022-04-12 08:20:00 121 mm[Hg] [facility] blood pressure diastolic 2022-04-12 08:20:00 76 mm[Hg] [facility] height 2022-01-10 08:20:00 63 [in_i] Commo n [facility] weight 2022-01-10 08:20:00 236.3 [lb_av] Co mmon [facility] temperature 2022-01-10 08:20:00 97.9 [degF] Com [facility] bmi 2022-01-10 08:20:00 41.85 kg/m2 Comm on [facility] oximetry 2022-01-10 08:20:00 96 % Commo n [facility] respiratory rate 2022-01-10 08:20:00 16 /min [facility] blood pressure systolic 2022-01-10 08:20:00 132 mm[Hg] [facility] blood pressure diastolic 2022-01-10 08:20:00 72 mm[Hg] [facility] height 2021-12-09 10:30:00 63 [in_i] Commo n [facility] weight 2021-12-09 10:30:00 230.4 [lb_av] Co mmon [facility] temperature 2021-12-09 10:30:00 97.7 [degF] Com mon [facility] bmi 2021-12-09 10:30:00 40.81 kg/m2 Comm on [facility] oximetry 2021-12-09 10:30:00 96 % Commo n [facility] respiratory rate 2021-12-09 10:30:00 17 /min [facility] blood pressure systolic 2021-12-09 10:30:00 135 mm[Hg] [facility] blood pressure diastolic 2021-12-09 10:30:00 76 mm[Hg] [facility] height 2021-07-28 11:10:00 63 [in_i] Commo n [facility] weight 2021-07-28 11:10:00 225 [lb_av] Comm on [facility] temperature 2021-07-28 11:10:00 98 [degF] Comm on [facility] bmi 2021-07-28 11:10:00 39.85 kg/m2 Comm on [facility] blood pressure systolic 2021-07-28 11:10:00 130 mm[Hg] [facility] blood pressure diastolic 2021-07-28 11:10:00 75 mm[Hg] [facility] height 2021-07-23 09:40:00 63 [in_i] Commo n [facility] weight 2021-07-23 09:40:00 226 [lb_av] Comm on [facility] bmi 2021-07-23 09:40:00 40.03 kg/m2 Comm on [facility] height 2021-04-27 14:00:00 63 [in_i] Commo n [facility] weight 2021-04-27 14:00:00 226.9 [lb_av] Co mmon [facility] temperature 2021-04-27 14:00:00 97.1 [degF] Com mon [facility] bmi 2021-04-27 14:00:00 40.19 kg/m2 Comm on [facility] oximetry 2021-04-27 14:00:00 99 % Commo n [facility] respiratory rate 2021-04-27 14:00:00 18 /min [facility] blood pressure systolic 2021-04-27 14:00:00 131 mm[Hg] [facility] blood pressure diastolic 2021-04-27 14:00:00 71 mm[Hg] [facility] Procedures Procedure Date / Time Performed Performing Clinicia n Source Appendectomy 2017-07-03 00:00:00 [facility] Cholecystectomy (Gallbladder) 2017-07-03 00:00:00 [facility] Medical Plan of Care Planned Activity Planned Date Details Comments Source Diagnostic Test Pending 2023-09-26 00:00:00 FSH (follicle-stimulati ng hormone), serum [code = FSH (follicle-stimulati ng hormone), serum] [facility] Diagnostic Test Pending 2023-09-26 00:00:00 estr adiol, serum [code = estradiol, serum] [facility] Diagnostic Test Pending 2023-09-26 00:00:00 pap, LB + HPV [code = pap, LB + HPV] [facility] Medical Future Appointment 2024-09-26 09:30:00 Joana ashby, [address] [place] [address] Dr [address]; [place] [address], [place] [address] [facility] Encounters Start Date/Time End Date/Time Encounter Type Admission Type Attending [facility] Care Facility Care Department Encounter ID Source 2024-08-06 13:19:00 Outpatient Forbes, [facility]ly [facility] [id number] [facility] 2024-08-02 08:32:00 Outpatient Forbes, [facility]ly [facility] [id number] [facility] 2024-05-24 08:36:00 Outpatient Forbes, Alex [facility] [id number] [facility] 2024-05-21 14:01:00 Outpatient Forbes, Alex [facility] [id number] [facility] 2022-06-16 14:28:00 Outpatient Forbes, Alex [facility] [id number] [facility] 2022-01-11 07:41:00 Outpatient Forbes, Alex [facility] [id number] [facility] 2021-12-10 08:01:01 Outpatient Forbes, Alex [facility] [id number] [facility] 2021-12-08 14:25:01 Outpatient Forbes, Alex [facility] [id number] [facility] 2021-07-28 14:39:35 Outpatient Forbes, Alex [facility] [id number] [facility] 2021-07-28 14:05:46 Outpatient Forbes, Alex [facility] [id number] [facility] 2021-07-28 13:54:15 Outpatient Forbes, Alex [facility] [id number] [facility] 2021-07-28 13:22:16 Outpatient Forbes, Alex [facility] [id number] [facility] 2021-07-28 13:05:52 Outpatient Forbes, Alex [facility] [id number] [facility] 2021-07-28 12:08:20 Outpatient Forbes, Alex [facility] [id number] [facility] 2021-07-28 12:07:47 Outpatient Forbes, Alex [facility] [id number] [facility] 2021-07-28 11:30:03 Outpatient Forbes, Alex [facility] [id number] [facility] 2024-08-08 00:00:00 2024-08-08 00:00:00 OFFICE VISIT ESTAB PT LEVEL 3 [facility] [id number] [facility] 2024-08-02 00:00:00 2024-08-02 00:00:00 (TEL) [facility] [id number] [facility] 2024-08-02 00:00:00 2024-08-02 00:00:00 (TEL) [facility] [id number] [facility] 2024-06-12 00:00:00 2024-06-12 00:00:00 (TEL) [facility] [id number] [facility] 2024-05-23 00:00:00 2024-05-23 00:00:00 (EPIC AMBULATORY ANALYST) New Patient [facility] [id number] [facility] 2024-05-22 00:00:00 2024-05-22 00:00:00 (TEL) [facility] [id number] [facility] 2024-05-22 00:00:00 2024-05-22 00:00:00 (TEL) [facility] [id number] [facility] 2024-02-19 00:00:00 2024-02-19 00:00:00 OFFICE VISIT ESTAB PT LEVEL 4 [facility] [id number] [facility] 2024-01-30 00:00:00 2024-01-30 00:00:00 (TEL) [facility]C [facility] [id number] [facility] 2024-01-23 00:00:00 2024-01-23 00:00:00 (TEL) [facility] [id number] [facility] 2023-09-27 00:00:00 2023-09-27 00:00:00 Outpatient GC_GCBZW_Ka diyala_S [facility] [id number] [facility] 2023-09-26 00:00:00 2023-09-26 00:00:00 Enid Tomlinson MD: [address] [place] [address] [address], [address], [place] [address] , Ph. GC_GCBZW_[facility]_S [facility] - GC_GCBZW_[facility]* [id number] [facility] [facility] 2023-09-14 00:00:00 2023-09-14 00:00:00 (TEL) STLMLC STLMLC [id number] [facility] 2023-09-08 00:00:00 2023-09-08 00:00:00 Outpatient GC_[email or web address] diyala_S [facility] [id number] [facility] 2023-09-07 00:00:00 2023-09-07 00:00:00 OFFICE VISIT ESTAB PT LEVEL 4 STLMLC STLMLC [id number] [facility] 2023-07-17 00:00:00 2023-07-17 00:00:00 (TEL) STLMLC STLMLC [id number] [facility] 2023-05-09 00:00:00 2023-05-09 00:00:00 (WELLNESS) Wellness Visit STLMLC STLMLC [id number] [facility] 2023-05-05 00:00:00 2023-05-05 00:00:00 (TEL) STLMLC STLMLC [id number] [facility] 2023-01-23 00:00:00 2023-01-23 00:00:00 OFFICE VISIT ESTAB PT LEVEL 4 STLMLC STLMLC [id number] [facility] 2023-01-23 00:00:00 2023-01-23 00:00:00 (TEL) STLMLC STLMLC [id number] [facility] 2022-10-24 00:00:00 2022-10-24 00:00:00 OFFICE VISIT ESTAB PT LEVEL 4 STLMLC STLMLC [id number] [facility] 2022-10-24 00:00:00 2022-10-24 00:00:00 (TEL) STLMLC STLMLC [id number] [facility] 2022-09-26 00:00:00 2022-09-26 00:00:00 (TEL) STLMLC STLMLC [id number] [facility] 2022-07-01 00:00:00 2022-07-01 00:00:00 (TEL) STLMLC STLMLC [id number] [facility] 2022-07-01 00:00:00 2022-07-01 00:00:00 OFFICE VISIT EST PT LEVEL 3 STLMLC STLMLC [id number] [facility] 2022-06-20 00:00:00 2022-06-20 00:00:00 OFFICE VISIT ESTAB PT LEVEL 4 STLMLC STLMLC [id number] [facility] 2022-04-12 00:00:00 2022-04-12 00:00:00 PREV VISIT EST AGE 40-64 STLMLC STLMLC [id number] [facility] 2022-01-10 00:00:00 2022-01-10 00:00:00 OFFICE VISIT ESTAB PT LEVEL 4 STLMLC STLMLC [id number] [facility] 2021-12-09 00:00:00 2021-12-09 00:00:00 OFFICE VISIT ESTAB PT LEVEL 4 STLMLC STLMLC [id number] [facility] 2021-07-28 00:00:00 2021-07-28 00:00:00 OFFICE VISIT EST PT LEVEL 3 STLMLC STLMLC [id number] [facility] 2021-07-23 00:00:00 2021-07-23 00:00:00 OFFICE VISIT EST PT LEVEL 3 STLMLC STLMLC [id number] [facility] 2021-07-21 00:00:00 2021-07-21 00:00:00 (TEL) STLMLC STLMLC [id number] [facility] 2021-06-02 00:00:00 2021-06-02 00:00:00 (TEL) STLMLC STLMLC [id number] [facility] 2021-04-27 00:00:00 2021-04-27 00:00:00 PREV VISIT EST AGE 40-64 STLMLC STLMLC [id number] [facility] 2020-12-31 00:00:00 2020-12-31 00:00:00 Outpatient STLMLC STLMLC [id number] [facility] 2020-11-19 00:00:00 2020-11-19 00:00:00 Outpatient STLMLC STLMLC [id number] [facility] 2020-11-18 00:00:00 2020-11-18 00:00:00 Outpatient STLMLC STLMLC [id number] [facility] 2020-05-27 00:00:00 2020-05-27 00:00:00 Outpatient STLMLC STLMLC [id number] [facility] 2020-05-07 00:00:00 2020-05-07 00:00:00 Outpatient STLMLC STLMLC [id number] [facility] 2020-01-07 09:45:00 2020-01-07 09:45:00 [facility]patient [facility] [id number] [facility] Results Test Description Test Time Test Comments Results Result Co mments Source HEMOGLOBIN [id number] 00:00:00* Test Item Value Reference Range Interpretation Comme [facility] HEMOGLOBIN A1c (test code = 4548-4) 6.1 % See_Comment H [Automated messa ge] The system which generated this result transmitted reference range: 4.2-5.6 %. The reference range was not used to interpret this result as normal/abnormal. HEMOGLOBIN [id number] 00:00:00* Test Item Value Reference Range Interpretation Comme [facility] HEMOGLOBIN A1c (test code = 4548-4) 5.9 % See_Comment H [Automated messa ge] The system which generated this result transmitted reference range: 4.2-5.6 %. The reference range was not used to interpret this result as normal/abnormal. HEMOGLOBIN [id number] 00:00:00* Test Item Value Reference Range Interpretation Comme nts HEMOGLOBIN A1c (test code = 4548-4) 6.0 % See_Comment H [Automated messa ge] The system which generated this result transmitted reference range: 4.2-5.6 %. The reference range was not used to interpret this result as normal/abnormal.
[2024-09-25 12:25] LABS: Absolute Basophils 0.1 K/uL (0-0.5); Absolute Eosinophils 0.3 K/uL (0-0.5); Absolute Lymphocytes (CBC) 2.3 K/uL (0.7-4.9); Absolute Monocytes 1.1 K/uL (0.1-1.3); Absolute Neutrophil 7.8 K/uL (1.8-8.0); Basophils % 0.7 % (0-1.3); Eosinophils % 2.6 % (0-4.4); Hematocrit 40.6 % (36.0-45.0); Hemoglobin 13.8 g/dL (12.0-15.0); Lymphocytes % 19.9 % (15.3-44.8); MCHC 33.9 g/dL (32.0-36.0); MCV 91.4 fL (80-100); MPV 7.7 fL (7.6-11.3); Monocytes % 9.5 % (3.3-12.3); Neutrophils % 67.3 % (41.7-73.7); Platelets 327 thou/uL (152-406); RBC Red Blood Cell Count 4.44 M/uL (3.86-4.86); Red Cell Distribution Width 14.4 % (12.1-15.2)
[2024-09-25 12:30] LABS: PT Prothrombin Time 11.4 SECONDS (10-13.0)
[2024-09-25 12:44] LABS: ALT/SGPT 36 U/L (13-56); AST/SGOT 17 U/L (15-37); Albumin 3.7 g/dL (3.4-5.0); Albumin/Globulin Ratio 0.9 (1.1-1.8); Alkaline Phosphatase 51 U/L (45-117); Anion Gap 8.3 mEq/L (5.0-15.0); BUN Blood Urea Nitrogen 16 mg/dL (7-18); Bicarbonate 34 mEq/L (21-32); Bilirubin Total 0.2 mg/dL (0.2-1.0); Globulin 4.1 g/dL (2.3-3.5); Glomerular Filtration Rate 108 ml/min (=/>90); Glucose Level 122 mg/dL (74-106); Magnesium 2.2 mg/dL (1.6-2.4); NT PRO-BNP 22 pg/mL (<125); Potassium 4.3 mEq/L (3.5-5.1); Protein, Total 7.8 g/dL (6.4-8.2); Sodium Level 131 mEq/L (136-145)
[2024-09-25 12:50] LABS: Bilirubin Direct < 0.2 mg/dL (0-0.2)
--- NOTE | 2024-09-25 12:57 | RAD REPORT ---
Procedure: Chest Single View HISTORY: Shortness of breath COMPARISON: none FINDINGS: Chronic elevation of the left hemidiaphragm. The lungs appear clear of acute infiltrate. No significant pleural effusion noted. The heart is normal size.
--- NOTE | 2024-09-25 14:00 | EDPHYS ---
Physician Documentation [facility] Name: Mahnaz Pimentel Age: 49 yrs Sex: Female : 1975 Arrival Date: 09/25/2024 Time: 10:47 Bed 24 Private MD: BELEN Physician Antonio Chávez HPI: 09/25 13:51 This 49 yrs old Female presents to ER via Ambulatory with complaints of latanya Shortness Of Breath. 13:51 The patient has shortness of breath with light activity. Onset: The symptoms/episode latanya began/occurred 3 day(s) ago. Duration: The symptoms are continuous, and are steadily getting worse. The patient's shortness of breath is aggravated by exertion, supine position, walking, is alleviated by rest, sitting up, application of supplemental oxygen. Associated signs and symptoms: Pertinent positives: chest pain, non-productive cough. Severity of symptoms: At their worst the symptoms were moderate in the emergency department the symptoms are unchanged. The patient has experienced similar episodes in the past, a few times, but today's symptoms are worse. 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 - Infectious Disease History:: Denies. - Social history:: Smoking status: Patient denies any tobacco usage or history of. - Family history:: not pertinent. ROS: 13:51 Constitutional: Negative for fever, chills, and weight loss, Eyes: Negative for injury, latanya pain, redness, and discharge, ENT: Negative for injury, pain, and discharge, Neck: Negative for injury, pain, and swelling, Abdomen/GI: Negative for abdominal pain, nausea, vomiting, diarrhea, and constipation, Back: Negative for injury and pain, : Negative for injury, bleeding, discharge, and swelling, MS/Extremity: Negative for injury and deformity, Skin: Negative for injury, rash, and discoloration, Neuro: Negative for headache, weakness, numbness, tingling, and seizure, Psych: Negative for depression, anxiety, suicide ideation, homicidal ideation, and hallucinations, Allergy/Immunology: Negative for hives, rash, and allergies, Endocrine: Negative for neck swelling, polydipsia, polyuria, polyphagia, and marked weight changes, Hematologic/Lymphatic: Negative for swollen nodes, abnormal bleeding, and unusual bruising, 13:51 Cardiovascular: Positive for chest pain, of the chest, 13:51 Respiratory: Positive for shortness of breath, Exam: 13:51 Constitutional: This is a well developed, well nourished patient who is awake, alert, latanya and in no acute distress. Head/Face: Normocephalic, atraumatic. Eyes: Pupils equal round and reactive to light, extra-ocular motions intact. Lids and lashes normal. Conjunctiva and sclera are non-icteric and not injected. Cornea within normal limits. Periorbital areas with no swelling, redness, or edema. ENT: Nares patent. No nasal discharge, no septal abnormalities noted. Tympanic membranes are normal and external auditory canals are clear. Oropharynx with no redness, swelling, or masses, exudates, or evidence of obstruction, uvula midline. Mucous membranes moist. Neck: Trachea midline, no thyromegaly or masses palpated, and no cervical lymphadenopathy. Supple, full range of motion without nuchal rigidity, or vertebral point tenderness. No Meningismus. Chest/axilla: Normal chest wall appearance and motion. Nontender with no deformity. No lesions are appreciated. Cardiovascular: Regular rate and rhythm with a normal S1 and S2. No gallops, murmurs, or rubs. Normal PMI, no JVD. No pulse deficits. Respiratory: Lungs have equal breath sounds bilaterally, clear to auscultation and percussion. No rales, rhonchi or wheezes noted. No increased work of breathing, no retractions or nasal flaring. Abdomen/GI: Soft, non-tender, with normal bowel sounds. No distension or tympany. No guarding or rebound. No evidence of tenderness throughout. Back: No spinal tenderness. No costovertebral tenderness. Full range of motion. Skin: Warm, dry with normal turgor. Normal color with no rashes, no lesions, and no evidence of cellulitis. MS/ Extremity: Pulses equal, no cyanosis. Neurovascular intact. Full, normal range of motion., bilateral aka Neuro: Awake and alert, GCS 15, oriented to person, place, time, and situation. Cranial nerves II-XII grossly intact. Motor strength 5/5 in all extremities. Sensory grossly intact. Cerebellar exam normal. Normal gait. Psych: Awake, alert, with orientation to person, place and time. Behavior, mood, and affect are within normal limits. 13:51 ECG was reviewed by the Attending Physician. Vital Signs: 10:56 BP 152 / 78; Pulse 101; Resp 20; Temp 98; Pulse Ox 93% ; Weight 117.93 kg; Height 5 ft. iw 3 in. ; 12:00 BP 160 / 75; Pulse 93; Resp 17; Pulse Ox 94% on R/A; me1 13:00 BP 134 / 74; Pulse 100; Resp 18; Pulse Ox 93% ; me1 14:00 BP 141 / 67; Pulse 96; Resp 14; Pulse Ox 93% ; me1 15:00 BP 129 / 81; Pulse 98; Resp 15; Pulse Ox 100% ; me1 16:00 BP 134 / 89; Pulse 99; Resp 16; Pulse Ox 93% on R/A; me1 17:00 BP 170 / 80; Pulse 99; Resp 15; Pulse Ox 93% ; me1 18:00 BP 126 / 75; Pulse 101; Resp 18; Pulse Ox 93% ; me1 10:56 Body Mass Index 46.06 (117.93 kg, 160.02 cm) iw MDM: 10:55 Medical Screening Exam initiated latanya 13:54 Differential diagnosis: Anemia Anxiety Reaction asthma, Bronchitis CHF exacerbation, latanya Chronic Obstructive Pulmonary Disease Myocardial Infarction pneumonia, Pneumothorax pulmonary edema, Pulmonary Embolism reactive airway disease, Sepsis Unstable Angina. Antibiotic administration: Not indicated. Immunization status:. Data reviewed: vital signs, nurses notes, lab test result(s), EKG, radiologic studies, plain films. Consideration of Admission/Observation Patient was admitted/placed on observation. Escalation of care including admission/observation considered. I considered the following discharge prescriptions or medication management in the emergency department Medications were administered in the Emergency Department. See MAR. Independent interpretation of the following test(s) in the Emergency Department EKG: See my EKG interpretation above. Test considered but Not performed: Ultrasound NO 2 D ECHO. Historians other than the Patient: Parent: MOM WELL INFORMED. Care significantly affected by the following chronic conditions: Hypertension, Obesity. Counseling: I had a detailed discussion with the patient and/or guardian regarding the historical points, exam findings, and any diagnostic results supporting the discharge/admit diagnosis, the presence of at least one elevated blood pressure reading (>120/80) during this emergency department visit, lab results, radiology results, the need for further work-up and treatment in the hospital. 09/25 10:55 Order name: Basic Metabolic Panel; Complete Time: 13:41 [facility] 09/25 10:55 Order name: CBC with Diff; Complete Time: 13:41 [facility] 09/25 10:55 Order name: LFT's; Complete Time: 13:41 [facility] 09/25 10:55 Order name: Magnesium; Complete Time: 13:41 [facility] 09/25 10:55 Order name: NT PRO-BNP; Complete Time: 13:41 [facility] 09/25 10:55 Order name: PT-INR; Complete Time: 13:41 [facility] 09/25 10:55 Order name: Troponin HS; Complete Time: 13:41 [facility] 09/25 13:50 Order name: ABG [facility] 09/25 15:13 Order name: T4 Free [facility]LA 09/25 15:13 Order name: Thyroid Stimulating Hormone [facility] 09/25 15:13 Order name: Basic Metabolic Panel EDLA 09/25 15:13 Order name: Basic Metabolic Panel EDMS 09/25 15:13 Order name: Basic Metabolic Panel EDMS 09/25 15:13 Order name: Basic Metabolic Panel EDMS 09/25 15:13 Order name: Basic Metabolic Panel EDMS 09/25 15:13 Order name: Basic Metabolic Panel EDMS 09/25 15:13 Order name: CBC with Automated Diff EDMS 09/25 15:13 Order name: CBC with Automated Diff EDMS 09/25 15:13 Order name: CBC with Automated Diff EDMS 09/25 15:13 Order name: CBC with Automated Diff EDMS 09/25 15:13 Order name: CBC with Automated Diff EDMS 09/25 15:13 Order name: CBC with Automated Diff EDMS 09/25 15:13 Order name: Lipid Profile EDMS 09/25 15:13 Order name: Lipid Profile EDMS 09/25 15:13 Order name: Magnesium EDMS 09/25 15:13 Order name: Magnesium EDMS 09/25 15:13 Order name: Magnesium EDMS 09/25 15:13 Order name: Magnesium EDMS 09/25 15:13 Order name: Magnesium EDMS 09/25 15:13 Order name: Magnesium EDMS 09/25 15:13 Order name: Phosphorus [facility] 09/25 15:13 Order name: Phosphorus [facility]LA 09/25 15:13 Order name: Phosphorus [facility]LA 09/25 15:13 Order name: Phosphorus [facility] 09/25 15:13 Order name: Phosphorus [facility] 09/25 15:13 Order name: Phosphorus [facility] 09/25 15:13 Order name: Troponin High Sensitivity [facility] 09/25 15:13 Order name: Troponin High Sensitivity [facility] 09/25 15:13 Order name: Troponin High Sensitivity [facility] 09/25 15:13 Order name: Urinalysis w/ reflexes [facility] 09/25 10:55 Order name: XRAY Chest (1 view); Complete Time: 13:41 [facility] 09/25 13:50 Order name: CT Chest For PE Angio; Complete Time: 14:54 [facility] 09/25 13:50 Order name: US Extremity Venous W Compression Edgardo; Complete Time: 14:54 [facility] 09/25 15:13 Order name: CONS Physician Consult [facility] 09/25 10:55 Order name: Cardiac monitoring; Complete Time: 12:28 [facility] 09/25 10:55 Order name: EKG - Nurse/Tech; Complete Time: 12:28 [facility] 09/25 10:55 Order name: IV Saline Lock; Complete Time: 12:20 [facility] 09/25 10:55 Order name: Labs collected and sent; Complete Time: 12:20 [facility] 09/25 10:55 Order name: O2 Per Protocol; Complete Time: 12:28 [facility] 09/25 10:55 Order name: O2 Sat Monitoring; Complete Time: 12:28 [facility] EC:51 Rate is 99 beats/min. Rhythm is regular. QRS [place] is Normal. HI interval is normal. QRS latanya interval is normal. QT interval is normal. No Q waves. T waves are Normal. Clinical impression: NSR w/ Non-specific ST/T Changes and No evidence of ischemia. Interpreted by me. Reviewed by me. Administered Medications: 14:16 Drug: Famotidine IVP 20 mg IVP once; dilute with 10 mL 0.9% NaCl; give over 2 minutes me1 Route: IVP; Site: left antecubital; 15:00 Follow up: Response: No adverse reaction me1 14:16 Drug: Aspirin PO Chewable Tablet 162 mg PO once Route: PO; me1 15:00 Follow up: Response: No adverse reaction me1 14:16 Drug: Enoxaparin Sub-Q 100 mg Sub-Q once Route: Sub-Q; Site: abdomen; me1 15:00 Follow up: Response: No adverse reaction me1 14:51 Drug: Levalbuterol Inhalation 2.5 mg Inhalation once Route: Inhalation; me1 15:00 Follow up: Response: Wheezing diminished me1 14:51 Drug: Ipratropium Inhalation Aerosol 0.5 mg Inhalation once Route: Inhalation; me1 15:00 Follow up: Response: No adverse reaction; Wheezing diminished me1 Disposition Summary: 09/25/24 14:00 Hospitalization Ordered Notes: Hospitalization Status: Observation latanya Provider: Harsh Churchill cha Condition: Stable latanya Problem: new latanya Symptoms: have improved latanya Bed/Room Type: Standard latanya Location: Telemetry/MedSurg (Inpatient)(09/26/24 12:03) 6 Room Assignment: [facility](09/26/24 12:03) [facility] Diagnosis - Dyspnea latanya - Morbid (severe) obesity with alveolar hypoventilation latanya - Chest pain, unspecified latanya - Essential (primary) hypertension latanya - Acute and chronic respiratory failure with hypoxia latanya - Acute and chronic respiratory failure with hypercapnia latanya Forms: - Medication Reconciliation Form latanya - SBAR form latanya - Leadership Thank You Letter latanya Signatures: Dispatcher [employer] Akua Burgos FNP-C FNP-Savita Ospina Corey, MD MD cha Williams, Irene, RN Chelsea Paiz [facility] Madai Gutierrez, RN RN me1 Corrections: (The following items were deleted from the chart) 10:56 10:56 BASIC METABOLIC PANEL+C.LAB.BRZ ordered. EDMS EDMS 10:56 10:56 CBC+H.LAB.BRZ ordered. EDMS EDMS 10:56 10:56 HEPATIC FUNCTION+C.LAB.BRZ ordered. EDMS EDMS 10:56 10:56 MAGNESIUM+C.LAB.BRZ ordered. EDMS EDMS 10:56 10:56 PROBNP+C.LAB.BRZ ordered. EDMS EDMS 10:56 10:56 PROTIME (+INR)+COAG.LAB.BRZ ordered. EDMS EDMS 10:56 10:56 Troponin High Sensitivity+C.LAB.BRZ ordered. EDMS EDMS 10:56 10:56 Chest Single View+RAD.RAD.BRZ ordered. EDMS EDMS 17:47 14:00 Telemetry/MedSurg (observation) [facility] 17:47 14:00 [facility] 09/26 12:03 03 17:47 [facility] ER HOLD [facility] 09/26 12:03 09/25 17:47 ERHOLD- [facility]
--- NOTE | 2024-09-25 14:00 | ER ---
Nurse's Notes [facility] Name: Mahnaz Pimentel Age: 49 yrs Sex: Female : 1975 Arrival Date: 09/25/2024 Time: 10:47 Bed 24 Private MD: Diagnosis: Dyspnea;Morbid (severe) obesity with alveolar hypoventilation;Chest pain, unspecified;Essential (primary) hypertension;Acute and chronic respiratory failure with hypoxia;Acute and chronic respiratory failure with hypercapnia Presentation: 09/25 10:56 Chief complaint: Patient states: SOB for a few minutes , getting better now, denies hx iw of asthma or breathing issues , has been getting more SOB on exertion over past couple months, it comes and goes. Coronavirus screen: At this time, the client does not indicate any symptoms associated with coronavirus-19. Ebola Screen: No symptoms or risks identified at this time. Initial Sepsis Screen: Does the patient meet any 2 criteria? Does the patient have a suspected source of infection? No. Patient's initial sepsis screen is negative. Risk Assessment: Do you want to hurt yourself or someone else? Patient reports no desire to harm self or others. Onset of symptoms was September 25, 2024. 10:56 Method Of Arrival: Ambulatory iw 10:56 Acuity: RAHEEM 3 iw Triage Assessment: 12:00 Respiratory: Reports shortness of breath the patient has moderate shortness of breath. me1 19:06 General: Appears in no apparent distress. Respiratory: Onset: The symptoms/episode me1 began/occurred yesterday. 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 - Infectious Disease History:: Denies. - Social history:: Smoking status: Patient denies any tobacco usage or history of. - Family history:: not pertinent. Screenin:10 [facility] ED Fall Risk Assessment (Adult) History of falling in the last 3 months, me1 including since admission No falls in past 3 months (0 pts) Confusion or Disorientation No (0 pts) Intoxicated or Sedated No (0 pts) Impaired Gait No (0 pts) Mobility Assist Device Used No (0 pt) Altered Elimination No (0 pt) Score/Fall Risk Level 0 - 2 = Low Risk Maintained a safe environment, Provided non-skid footwear, Hourly rounding (assess needs \T\ fall precautionary measures) done. Abuse screen: Denies threats or abuse. Nutritional screening: No deficits noted. Tuberculosis screening: No symptoms or risk factors identified. Assessment: 12:05 Reassessment: Patient and/or family updated on plan of care and expected duration. Pain ll1 level reassessed. 12:10 General: Appears in no apparent distress. uncomfortable, well developed, well me1 nourished, Behavior is calm, cooperative, appropriate for age, Reports. Pain: Denies pain. Neuro: Level of Consciousness is awake, alert, obeys commands, Oriented to person, place, time, situation, Appropriate for age. Cardiovascular: Patient's skin is warm and dry. Rhythm is sinus tachycardia. Respiratory: Airway is patent Respiratory effort is even, unlabored, Respiratory pattern is regular, symmetrical, Patient ambulated to restroom and back and had to stand at the side of the bed to catch her breath in order to get back on the stretcher. SOB noted after ambulation Breath sounds are clear bilaterally. GI: No signs and/or symptoms were reported involving the gastrointestinal system. : No signs and/or symptoms were reported regarding the genitourinary system. EENT: No signs and/or symptoms were reported regarding the EENT system. Derm: Skin is intact, is healthy with good turgor, Skin is pink, warm \T\ dry. Musculoskeletal: No signs and/or symptoms reported regarding the musculoskeletal system. Vital Signs: 10:56 BP 152 / 78; Pulse 101; Resp 20; Temp 98; Pulse Ox 93% ; Weight 117.93 kg; Height 5 ft. iw 3 in. ; 12:00 BP 160 / 75; Pulse 93; Resp 17; Pulse Ox 94% on R/A; me1 13:00 BP 134 / 74; Pulse 100; Resp 18; Pulse Ox 93% ; me1 14:00 BP 141 / 67; Pulse 96; Resp 14; Pulse Ox 93% ; me1 15:00 BP 129 / 81; Pulse 98; Resp 15; Pulse Ox 100% ; me1 16:00 BP 134 / 89; Pulse 99; Resp 16; Pulse Ox 93% on R/A; me1 17:00 BP 170 / 80; Pulse 99; Resp 15; Pulse Ox 93% ; me1 18:00 BP 126 / 75; Pulse 101; Resp 18; Pulse Ox 93% ; me1 10:56 Body Mass Index 46.06 (117.93 kg, 160.02 cm) iw ED Course: 10:51 Patient arrived in ED. cj3 10:55 Antonio Chávez MD is Attending Physician. latanya 10:58 Triage completed. iw 12:05 Arm band placed on Patient placed in an exam room, on a stretcher. ll1 12:07 Madai Gutierrez, RN is Primary Nurse. me1 12:10 Patient has correct armband on for positive identification. Bed in low position. Call me1 light in reach. Side rails up X2. Provided Education on: POC. Verbalized understanding.. Client placed on continuous cardiac and pulse oximetry monitoring. NIBP monitoring applied. phototypesetting equipment monitor on. Pulse ox on. NIBP on. Warm blanket given. 12:10 No provider procedures requiring assistance completed. me1 12:20 Basic Metabolic Panel Sent. ty 12:20 CBC with Diff Sent. ty 12:20 LFT's Sent. ty 12:20 Magnesium Sent. ty 12:20 NT PRO-BNP Sent. ty 12:20 PT-INR Sent. ty 12:20 Troponin HS Sent. ty 12:20 Inserted saline lock: 20 gauge in left antecubital area, using aseptic technique. Blood ty collected. Flushed with 10 mL NS. 12:28 Basic Metabolic Panel Sent. me1 12:28 CBC with Diff Sent. me1 12:28 LFT's Sent. me1 12:28 Magnesium Sent. me1 12:28 NT PRO-BNP Sent. me1 12:28 PT-INR Sent. me1 12:28 Troponin HS Sent. me1 12:28 EKG done, by ED staff, reviewed by Antonio Chávez MD. me1 12:39 XRAY Chest (1 view) In Process Unspecified. EDMS 13:59 Harsh Churchill PA is Hospitalizing Provider. latanya 14:29 CT Chest For PE Angio In Process Unspecified. EDMS 14:43 US Extremity Venous W Compression Edgardo In Process Unspecified. EDMS 19:07 Patient admitted, IV remains in place. me1 Administered Medications: 14:16 Drug: Famotidine IVP 20 mg IVP once; dilute with 10 mL 0.9% NaCl; give over 2 minutes me1 Route: IVP; Site: left antecubital; 15:00 Follow up: Response: No adverse reaction me1 14:16 Drug: Aspirin PO Chewable Tablet 162 mg PO once Route: PO; me1 15:00 Follow up: Response: No adverse reaction me1 14:16 Drug: Enoxaparin Sub-Q 100 mg Sub-Q once Route: Sub-Q; Site: abdomen; me1 15:00 Follow up: Response: No adverse reaction me1 14:51 Drug: Levalbuterol Inhalation 2.5 mg Inhalation once Route: Inhalation; me1 15:00 Follow up: Response: Wheezing diminished me1 14:51 Drug: Ipratropium Inhalation Aerosol 0.5 mg Inhalation once Route: Inhalation; me1 15:00 Follow up: Response: No adverse reaction; Wheezing diminished me1 Medication: 12:10 VIS not applicable for this client. me1 Outcome: 14:00 Decision to Hospitalize by Provider. latanya 19:07 Admitted to ER Hold. Please see [facility] for further documentation. me1 19:07 Condition: stable 19:07 Instructed on the need for admit, 09/26 13:25 Admitted to Med/surg db 13:25 Admitted to Med/surg accompanied by tech, via wheelchair, room 415, db 13:25 Patient left the ED. db Signatures: Dispatcher [employer] EDAntonio Maldonado MD MD cha Williams, Irene, RN RN iw Lupis Griffin RN RN 1 Yanet Christopher RN RN db Madai Gutierrez RN RN me1 Daren Ramires Celeste 3 Corrections: (The following items were deleted from the chart) 09/25 15:01 10:56 Chief complaint: Patient states: SOB for a few minutes , getting better now, me1 denies hx of asthma or breathing issues , has been getting more SOB on exertion over past couple months, it comes and goes iw 18:11 16:00 BP 125 / 80; Pulse 99bpm; Resp 15bpm; Pulse Ox 93%; me1 me1
[2024-09-25] MEDS ORDERED: ENOXAPARIN 100 MG/ML SYR SQ ONE (14:04)
[2024-09-25] MEDS ORDERED: IPRATROPIUM BROM 0.5MG/2.5ML ONE ×2 (14:04→19:20)
[2024-09-25] MEDS ORDERED: ASPIRIN 81 MG CHEWABLE TABLET ONE (14:05)
[2024-09-25] MEDS ORDERED: FAMOTIDINE 20 MG/2 ML VIAL IV ONE (14:05)
[2024-09-25] MEDS ORDERED: LEVALBUTEROL 1.25 MG/3 ML NEB ONE (14:05)
--- NOTE | 2024-09-25 14:48 | P.HP ---
Patient History Date of Service: 09/25/24 Reason for admission: Dyspnea, chest pain History of Present Illness: Mahnaz Pimentel is a 49 year old female with pmhx HTN, anxiety, who presents to the ED with shortness of breath for 3 days that is worsening. She reports worsening with walking but alleviated with rest and sitting up. She reports struggling for a few months with shortness of breath but today was much worse. She denies chest pain reporting taking deep breaths can cause some chest pain but not regularly. She denies fever, chills, and recent sickness. Laboratory evaluation significant for sodium 131, bicarb 34, serum glucose 122 Chest x-ray reports "Chronic elevation of the left hemidiaphragm. The lungs appear clear of acute infiltrate. No significant pleural effusion noted. The heart is normal size." CT PE protocol reports negative for PE Mahnaz will be admitted to hospitalist service for further evaluation and treatment of SOB. Allergies No Known Allergies Allergy (Verified 09/19/17 01:38) Home Medications: hydroCHLOROthiazide [Hydrochlorothiazide*] 25 mg PO DAILY 09/19/17 - Past Medical/Surgical History Diabetic: No -: Hypertension -: anxiety -: Cholecystectomy -: appendectomy - Family History Mother -: Diabetes, Cancer Notes: breast cancer, lung mass Father -: Hypertension, Lung disease, Diabetes - Social History Smoking Status: Never smoker Alcohol use: Yes CD- Drugs: No Caffeine use: Yes Review of Systems Other: per HPI Physical Examination - Physical Exam General: Alert, In no apparent distress, Oriented x3 HEENT: Atraumatic, Normocephalic, PERRLA Neck: Supple Respiratory: Clear to auscultation bilaterally, Normal air movement Cardiovascular: Normal pulses, Regular rate/rhythm, Normal S1 S2 Capillary refill: <2 Seconds Gastrointestinal: Normal bowel sounds Musculoskeletal: No clubbing Integumentary: No rashes Neurological: Normal speech, Normal tone - Studies Laboratory Data (last 24 hrs) 09/25/24 09/25/24 09/25/24 12:18 12:18 12:18 WBC 11.50 H Hgb 13.8 Hct 40.6 Plt Count 327 PT 11.4 INR 1.00 Sodium 131 L Potassium 4.3 BUN 16 Creatinine 0.67 Glucose 122 H Magnesium 2.2 Total Bilirubin 0.2 AST 17 ALT 36 Alkaline Phosphatase 51 Assessment and Plan - Plan Assessment and plan Dyspnea likely secondary to obesity hypoventilation syndrome -CT PE protocol negative for PE -Chest x-ray reports "Chronic elevation of the left hemidiaphragm. The lungs appear clear of acute infiltrate. No significant pleural effusion noted. The heart is normal size." -Trend troponin -continuous telemetry -Oxygen protocol -DuoNebs -Levaquin IV -Dr. Waters consulted Hyponatremia -Na 133 -will continue to monitor Obesity 2/2 calorie intake -nutrition consult Prediabetic -consistent carbs diet -monitor in AM labs Anxiety Hypertension -Continue home medications as appropriate DVT PPx Lovenox Full code LOS 24-hour OBS Discharge Plan: Home Plan to discharge in: 24 Hours - Advance Directives Does patient have a Living Will: No Does patient have a Durable POA for Healthcare: No
--- NOTE | 2024-09-25 14:50 | RAD REPORT ---
EXAMINATION: US bilateral LOWER EXTREMITY VENOUS DOPPLER CLINICAL INDICATION: Leg pain TECHNIQUE: Sonographic evaluation of the veins of the lower extremity bilaterally formed.Grayscale, c olor and spectral analysis performed on all vessels COMPARISON: No prior exam. FINDINGS: The common femoral, superficial femoral, greater saphenous, popliteal and posterior tibial veins bila terally are compressible and demonstrate augmentation. Doppler demonstrates good flow. IMPRESSION: No evidence of deep venous thrombosis involving either lower extremity
--- NOTE | 2024-09-25 14:53 | RAD REPORT ---
EXAMINATION: CTA CHEST PE CLINICAL INDICATION: Chest pain TECHNIQUE: 100 cc 370 Isovue administered intravenously. This examination was performed according to an angiographic protocol with 3D post-processing. This involves 3D reconstructions, MIPs, volume rendered images and/or shaded surface rendering. One or more of the following dose reduction techniqu es were used: Automated exposure control, adjustment of the mA and/or kV according to patient size, and/or iterative reconstruction. Unless otherwise specified, incidental findings do not require dedic ated imaging follow-up. [id number]. COMPARISON: No prior exam. FINDINGS: A pulmonary embolus is not seen. An aortic aneurysm not noted. No pleural effusion. No pericardial effusion. Lungs are clear. Chronic elevation left hemidiaphragm Fatty liver IMPRESSION: No evidence of a pulmonary embolism
[2024-09-25] MEDS ORDERED: ACETAMINOPHEN 325 MG TABLET PO PRN (15:07)
[2024-09-25 15:15] LABS: Blood Gas Oxyhemoglobin 86.5 % (94-97); Blood O2 Saturation 89.2 % (92-98.5)
[2024-09-25] MEDS: ENOXAPARIN 40 MG/0.4 ML SQ SCH (16:00)
[2024-09-25] MEDS: levoFLOXacin 500 MG TAB PO SCH (16:00)
[2024-09-25] MEDS: FUROSEMIDE 40 MG/4 ML VIAL IV SCH (16:18)
[2024-09-25 19:17] VITALS: BMI 46.0
[2024-09-25] MEDS ORDERED: ALBUTEROL 2.5 MG/3 ML NEB SOL ONE (19:20)
[2024-09-25] MEDS: IPRATROPIUM BROM 0.5MG/2.5ML NEB SCH (19:30)
[2024-09-25] MEDS: ALBUTEROL 2.5 MG/3 ML NEB SOL NEB SCH (19:30)
[2024-09-25] MEDS ORDERED: FUROSEMIDE 40 MG/4 ML VIAL ONE (19:34)
[2024-09-25] MEDS ORDERED: levoFLOXacin 250 MG TAB ONE (19:34)
[2024-09-25 20:05] LABS: Specific Gravity > 1.030 (1.005-1.030); Sqamous Epithelial <5 /HPF (None Seen); Urine Bacteria <20 /HPF (<20); Urine Bilirubin NEGATIVE (Negative); Urine Blood Trace (Negative); Urine Clarity Clear (Clear); Urine Color Light-Yellow (Yellow); Urine Culture Reflex Order NOT NEEDED; Urine Glucose NEGATIVE (Negative); Urine Ketones NEGATIVE (Negative); Urine Microscopic Reflex YN ORDER UMIC; Urine Nitrite NEGATIVE (Negative); Urine Protein NEGATIVE (Negative); Urine RBC <5 /HPF (None Seen); Urine Urobilinogen Normal (Normal); Urine WBC <5 /HPF (<5); Urine Yeast (Budding) Trace /HPF (None Seen)
[2024-09-25] MEDS ORDERED: TRAZODONE 50 MG TABLET ONE (23:06)
[2024-09-25] MEDS: TRAZODONE 50 MG TABLET PO PRN (23:14)
[2024-09-26] MEDS ORDERED: ALBUTEROL 2.5 MG/3 ML NEB SOL ONE ×2 (00:39→07:48)
[2024-09-26] MEDS ORDERED: IPRATROPIUM BROM 0.5MG/2.5ML ONE ×2 (00:39→07:48)
[2024-09-26 06:05] LABS: Absolute Basophils 0.1 K/uL (0-0.5); Absolute Eosinophils 0.3 K/uL (0-0.5); Absolute Lymphocytes (CBC) 1.9 K/uL (0.7-4.9); Absolute Neutrophil 6.8 K/uL (1.8-8.0); Basophils % 0.7 % (0-1.3); Eosinophils % 2.5 % (0-4.4); Hematocrit 38.3 % (36.0-45.0); Hemoglobin 13.1 g/dL (12.0-15.0); Lymphocytes % 18.9 % (15.3-44.8); MCH 31.3 pg (27.0-35.0); MCHC 34.2 g/dL (32.0-36.0); MCV 91.4 fL (80-100); MPV 7.9 fL (7.6-11.3); Monocytes % 9.7 % (3.3-12.3); Neutrophils % 68.2 % (41.7-73.7); Platelets 307 thou/uL (152-406); RBC Red Blood Cell Count 4.19 M/uL (3.86-4.86); Red Cell Distribution Width 14.7 % (12.1-15.2)
[2024-09-26 08:11] LABS: Anion Gap 7.7 mEq/L (5.0-15.0); Magnesium 1.9 mg/dL (1.6-2.4); Phosphorus 5.9 mg/dL (2.5-4.9); Potassium 3.7 mEq/L (3.5-5.1); Thyroid Stimulating Hormone 2.34 uIU/mL (0.358-3.740)
--- NOTE | 2024-09-26 08:37 | EKG ---
Test Date: 2024-09-25 Test Time: 12:22:08 String Cutter: MEASUREMENT RESULTS: Intervals: Rate: 101 NH: 134 QRSD: 82 QT: 358 QTc: 464 [place]: P: 36 NH: 134 QRS: 60 T: 65 INTERPRETIVE STATEMENTS: Sinus tachycardia with premature atrial complexes Otherwise normal ECG No previous ECG available for comparison Electronically Signed On 09-26-24 08:35:20 CDT by Bret London
[2024-09-26] MEDS: predniSONE 20 MG TAB PO SCH (09:00)
[2024-09-26] MEDS: DULERA 200/5 (MOMETASONE/FORMOTEROL) INHALER IH SCH (09:00)
[2024-09-26] MEDS: POTASSIUM 25 MEQ EFFERV TAB PO ONE (09:00)
[2024-09-26] MEDS ORDERED: predniSONE 20 MG TAB ONE (09:10)
[2024-09-26] MEDS ORDERED: levoFLOXacin 250 MG TAB ONE (09:10)
[2024-09-26] MEDS ORDERED: POTASSIUM 25 MEQ EFFERV TAB ONE (09:11)
[2024-09-26] MEDS ORDERED: ENOXAPARIN 40 MG/0.4 ML SQ ONE (09:11)
--- NOTE | 2024-09-26 10:49 | ECHO ---
HEIGHT: 5 ft 3 in WEIGHT: 259 lb 15.858 oz DATE OF STUDY: 09/26/[address]: Harsh Churchill 2-DIMENSIONAL: YES M.MODE: YES DOPPLER: YES COLOR FLOW: YES TDS: YES PORTABLE: YES DEFINITY: BUBBLE STUDY: DIAGNOSIS: SHORTNESS OF BREATH CARDIAC HISTORY: CATHERIZATION: NO SURGERY: NO PROSTHETIC VALVE: NO PACEMAKER: NO MEASUREMENTS (cm) DIASTOLIC (NORMALS) SYSTOLIC (NORMALS) IVSd 1.2 (0.6-1.2) LA Diam (1.9-4.0) LVEF 60-65% LVIDd 4.6 (3.5-5.7) LVIDs 3.3 (2.0-3.5) %FS 28% LVPWd 1.5 (0.6-1.2) Ao Diam 3.2 (2.0-3.7) 2 DIMENSIONAL ASSESSMENT: RIGHT ATRIUM: NOT SEEN LEFT ATRIUM: NOT SEEN RIGHT VENTRICLE: NOT WELL VISUALIZED LEFT VENTRICLE: NORMAL TRICUSPID VALVE: NORMAL MITRAL VALVE: NORMAL PULMONIC VALVE: NOT SEEN AORTIC VALVE: NOT SEEN PERICARDIAL EFFUSION: NONE AORTIC ROOT: NOT SEEN LEFT VENTRICULAR WALL MOTION: NORMAL DOPPLER/COLOR FLOW: NORMAL COMMENTS: 1. LIMITED IMAGES, POOR STUDY DUE TO BODY HABITUS 2. OVERALL LEFT VENTRICULAR FUNCTION LOOKS NORMAL, EJECTION FRACTION 60-65% TECHNOLOGIST: ROMAIN ROSENBERG
--- NOTE | 2024-09-26 12:06 | P.CNS ---
Date of Consult: 09/26/24 Reason for Consult: Shortness of breath Chief Complaint: Dyspnea, chest pain History of Present Illness: Patient is 49 years of age has been dyspneic for the past 2 months has become progressively worse with some lower extremity edema no prior history of card iopulmonary problems before and it appeared in the hospital denies any wheezing or tightness does not smoke possible underlying sleep apnea history of hypertension Allergies No Known Allergies Allergy (Verified 09/19/17 01:38) Home Medications: hydroCHLOROthiazide [Hydrochlorothiazide*] 25 mg PO DAILY 09/19/17 Lisinopril/Hydrochlorothiazide [Lisinopril-Hctz 10-12.5 mg Tab] 10 - 12.5 mg PO DAILY 09/26/24 Trazodone [Desyrel*] 100 mg PO BEDTIME 09/26/24 Venlafaxine HCl [Venlafaxine HCl ER] 150 mg PO DAILY 09/26/24 - Past Medical/Surgical History Diabetic: No -: Hypertension -: anxiety -: Cholecystectomy -: appendectomy - Family History Mother Medical History: Diabetes, Cancer Notes: breast cancer, lung mass Father Medical History: Hypertension, Lung disease, Diabetes - Social History Alcohol use: Yes CD- Drugs: No Caffeine use: Yes Place of Residence: Home Review of Systems 10-point ROS is otherwise unremarkable Physical Examination Temp Pulse Resp BP Pulse Ox 98 F 98 H 20 124/55 L 100 09/26/24 08:00 09/26/24 08:00 09/26/24 08:00 09/26/24 08:00 09/26/24 08:00 General: Alert, Oriented x3 Neck: Supple Respiratory: Clear to auscultation bilaterally Cardiovascular: No edema, Regular rate/rhythm, Normal S1 S2 Laboratory Data (last 24 hrs) 09/26/24 09/26/24 09/25/24 05:25 05:25 12:18 WBC 10.00 Hgb 13.1 Hct 38.3 Plt Count 307 PT 11.4 INR 1.00 Sodium 130 L Potassium 3.7 D BUN 19 H Creatinine 0.79 Glucose 116 H Phosphorus 5.9 H Magnesium 1.9 Total Bilirubin AST ALT Alkaline Phosphatase Triglycerides 132 Cholesterol 156 HDL Cholesterol 46 Cholesterol/HDL Ratio 3.39 09/25/24 09/25/24 12:18 12:18 WBC 11.50 H Hgb 13.8 Hct 40.6 Plt Count 327 PT INR Sodium 131 L Potassium 4.3 BUN 16 Creatinine 0.67 Glucose 122 H Phosphorus Magnesium 2.2 Total Bilirubin 0.2 AST 17 ALT 36 Alkaline Phosphatase 51 Triglycerides Cholesterol HDL Cholesterol Cholesterol/HDL Ratio - Problems (1) Dyspnea Current Visit: Yes Status: Acute Plan: Patient is 49 years of age admitted with progressive dyspnea for the past 2 months mild lower extremity edema history of hypertension anxiety does not smoke no prior history of obstructive airways disease she does complain of loud snoring and excessive daytime somnolence may have underlying obstructive sleep apnea will need to have a sleep study done as an outpatient I recommended trial of inhaled bronchodilators from now blood gases shows mild hypoxemia mild hypercapnia also possibility of underlying obesity hypoventilation syndrome no evidence of thromboembolism CT scan reviewed doubt CHF his BNP is only 22 recommend discharge home on a long-acting steroid inhaler Advair follow-up with me in 2 weeks will need outpatient pulmonary function testing sleep testing
--- NOTE | 2024-09-26 15:10 | P.PN ---
Subjective Date of Service: 09/26/24 Chief Complaint: Dyspnea, chest pain Subjective: No new changes, C/O voiced (continues to have shortness of breath with exertion) Review of Systems 10-point ROS is otherwise unremarkable Respiratory: Shortness of Breath, SOB with Excertion Cardiovascular: Orthopnea Physical Examination - Vital Signs Temperature: 98.0 F Blood Pressure: 122/49 Pulse: 113 Respirations: 16 Pulse Ox (%): 98 - Physical Exam General: Alert, In no apparent distress HEENT: Atraumatic, PERRLA, EOMI Neck: Supple, JVD not distended Respiratory: Normal air movement, Diminished, Other (on 2L/NC) Cardiovascular: Normal S1 S2, Other (sinus tachycardia 105-110) Gastrointestinal: Normal bowel sounds, No tenderness Musculoskeletal: No tenderness Integumentary: No rashes Neurological: Normal speech, Normal tone, Normal affect Lymphatics: No axilla or inguinal lymphadenopathy Urinary: Bladder distention (Mild ) External genitalia: Deferred Rectal: Deferred - Studies Laboratory Data (last 24 hrs) 09/26/24 09/26/24 05:25 05:25 WBC 10.00 Hgb 13.1 Hct 38.3 Plt Count 307 Sodium 130 L Potassium 3.7 D BUN 19 H Creatinine 0.79 Glucose 116 H Phosphorus 5.9 H Magnesium 1.9 Triglycerides 132 Cholesterol 156 HDL Cholesterol 46 Cholesterol/HDL Ratio 3.39 Assessment And Plan - Plan Dyspnea likely secondary to obesity hypoventilation syndrome C/o Sleep Apnea -CT PE protocol negative for PE -Chest x-ray reviewed with: Chronic elevation of the left hemidiaphragm. The lungs appear clear of acute infiltrate. No significant pleural effusion noted. The heart is normal size. - Troponin trended 4/3.6/6 - Continue to monitor on telemetry - Continue supplemental Oxygen and wean as tolerated - Cotinue breathing treatments q6h - Levaquin IV discontinued 09/26 - Dr. Waters/Pulmonology consulted recs for: discharge home on a long-acting steroid inhaler Advair follow-up with me in 2 weeks will need outpatient pulmonary function testing sleep testing Hyponatremia R/o Urinary Retention - Reviewed Na+ 130 - Bladder scan ordered - Consider ordering Serum Os/urine Na+/urine Os - Continue to monitor Obesity 2/2 calorie intake - Nutrition consult ordered Prediabetic - Carb controlled diet - Monitor BG with AM labs Anxiety Depression Insomnia - Continue home meds Trazodone and Venlafaxine Hypertension - Home medication Lisinopril/HCTZ, held for now-resume when appropriate - Monitor BP per unit protocol DVT Ppx: Lovenox Code Status: Full Code Discharge Plan: Home Plan to discharge in: 24 Hours - Code Status/Comfort Care Code Status Assessed: Yes (FULL CODE )
[2024-09-26] MEDS: FUROSEMIDE 40 MG/4 ML VIAL IV SCH (16:04)
--- NOTE | 2024-09-26 18:30 | RAD REPORT ---
EXAM: URINARY BLADDER ULTRASOUND CLINICAL INDICATION: Abdominal pain TECHNIQUE: Sonographic evaluation of the bladder performed. FINDINGS: Prevoid bladder volume 600 cc. No post void residual. No ascites seen IMPRESSION; Prevoid bladder volume 600 cc. No post void residual.
[2024-09-27 06:51] LABS: Absolute Basophils 0.1 K/uL (0-0.5); Absolute Eosinophils 0.1 K/uL (0-0.5); Absolute Lymphocytes (CBC) 1.9 K/uL (0.7-4.9); Absolute Monocytes 0.9 K/uL (0.1-1.3); Absolute Neutrophil 9.2 K/uL (1.8-8.0); Basophils % 0.5 % (0-1.3); Eosinophils % 0.5 % (0-4.4); Hematocrit 38.8 % (36.0-45.0); Lymphocytes % 15.9 % (15.3-44.8); MCH 30.6 pg (27.0-35.0); MCHC 33.5 g/dL (32.0-36.0); MCV 91.5 fL (80-100); MPV 7.9 fL (7.6-11.3); Monocytes % 7.4 % (3.3-12.3); Neutrophils % 75.7 % (41.7-73.7); Platelets 348 thou/uL (152-406); RBC Red Blood Cell Count 4.23 M/uL (3.86-4.86); Red Cell Distribution Width 14.7 % (12.1-15.2)
[2024-09-27 06:59] LABS: Anion Gap 6.6 mEq/L (5.0-15.0); Magnesium 2.2 mg/dL (1.6-2.4); Phosphorus 3.6 mg/dL (2.5-4.9); Potassium 3.6 mEq/L (3.5-5.1)
[2024-09-27] MEDS: VENLAFAXINE HCL XR 75 MG CAP PO SCH (08:35)
[2024-09-27] MEDS: POTASSIUM CL SA 10 MEQ TAB PO SCH (08:36)
[2024-09-27] MEDS ORDERED: HOME MED 1 EA UNK (Venlafaxine Hcl [Venlafaxine Hcl Er] 150 MG Tab.Er.24) PO SCH (09:00)
[2024-09-27] MEDS ORDERED: POLYETHYL GLY 3350 17 GM/DOSE PO PRN (09:27)
[2024-09-27] MEDS: DOCUSATE NA/SENNA CONC 1 TAB PO SCH (09:57)
--- NOTE | 2024-09-27 15:44 | P.PN ---
Subjective Date of Service: 09/27/24 Chief Complaint: Dyspnea, chest pain Subjective: No chest pain. Shortness of breath little better today. No nausea or vomiting. No abdominal pain. No obvious bleeding. Looks comfortable in the bed. Objective: General appearance: Alert and comfortable CVS: Normal S1 and S2 Lungs: Clear to auscultation bilaterally Abdomen: Soft, bowel sounds present, no tenderness Extremities: trace-1+ b/l lower extremity edema Physical Examination - Vital Signs Temperature: 97.9 F Blood Pressure: 118/57 Pulse: 100 Respirations: 18 Pulse Ox (%): 95 Assessment And Plan - Plan Dyspnea likely secondary to obesity hypoventilation syndrome , Sleep Apnea -CT PE protocol negative for PE -Chest x-ray reviewed with: Chronic elevation of the left hemidiaphragm. The lungs appear clear of acute infiltrate. No significant pleural effusion noted. The heart is normal size. - Dr. Waters/Pulmonology consulted recs for: discharge home on a long-acting steroid inhaler Advair follow-up with me in 2 weeks will need outpatient pulmonary function testing sleep testing -CTA and venous doppler neg -contt IV diuretics for one more day as per patieint request - echocardiogram poor study, ejection fraction 60 to 65%, Obesity - Nutrition consult ordered Prediabetic - Carb controlled diet - Monitor BG with AM labs Anxiety Depression Insomnia - Continue home meds Trazodone and Venlafaxine Hypertension - Home medication Lisinopril/HCTZ, held for now-resume when appropriate - Monitor BP per unit protocol Plan discussed with the patient and answered all questions. d/w family and RN at bedside.
[2024-09-28 06:50] LABS: Absolute Basophils 0.1 K/uL (0-0.5); Absolute Eosinophils 0.1 K/uL (0-0.5); Absolute Lymphocytes (CBC) 1.8 K/uL (0.7-4.9); Absolute Monocytes 0.6 K/uL (0.1-1.3); Absolute Neutrophil 8.1 K/uL (1.8-8.0); Basophils % 0.8 % (0-1.3); Eosinophils % 0.7 % (0-4.4); Hematocrit 38.8 % (36.0-45.0); Hemoglobin 13.1 g/dL (12.0-15.0); Lymphocytes % 16.8 % (15.3-44.8); MCH 31.6 pg (27.0-35.0); MCHC 33.7 g/dL (32.0-36.0); MCV 93.6 fL (80-100); MPV 7.8 fL (7.6-11.3); Monocytes % 5.9 % (3.3-12.3); Neutrophils % 75.8 % (41.7-73.7); Platelets 317 thou/uL (152-406); RBC Red Blood Cell Count 4.15 M/uL (3.86-4.86); Red Cell Distribution Width 15.1 % (12.1-15.2)
[2024-09-28 07:05] LABS: Anion Gap 4.1 mEq/L (5.0-15.0); Phosphorus 5.2 mg/dL (2.5-4.9)
[2024-09-28 07:19] LABS: Magnesium 2.2 mg/dL (1.6-2.4); Potassium 4.1 mEq/L (3.5-5.1)
[2024-09-28 10:00] VITALS: O2SAT 96
[2024-09-28 12:05] VITALS: TEMP 97.9
--- NOTE | 2024-09-28 13:44 | P.PN ---
Subjective Date of Service: 09/28/24 Chief Complaint: Dyspnea, chest pain Subjective: No chest pain. Shortness of breath little better today but feels SOB with activity. No nausea or vomiting. No abdominal pain. No obvious bleeding. Looks comfortable in the bed. Objective: General appearance: Alert and comfortable CVS: Normal S1 and S2 Lungs: Clear to auscultation bilaterally Abdomen: Soft, bowel sounds present, no tenderness Extremities: trace b/l lower extremity edema Physical Examination - Vital Signs Temperature: 97.9 F Blood Pressure: 135/68 Pulse: 104 Respirations: 15 Pulse Ox (%): 94 Assessment And Plan - Plan Dyspnea likely secondary to obesity hypoventilation syndrome , Sleep Apnea -CT PE protocol negative for PE -Chest x-ray reviewed with: Chronic elevation of the left hemidiaphragm. The lungs appear clear of acute infiltrate. No significant pleural effusion noted. The heart is normal size. - Dr. Waters/Pulmonology consulted recs for: discharge home on a long-acting steroid inhaler Advair follow-up with me in 2 weeks will need outpatient pulmonary function testing sleep testing -CTA and venous doppler neg - DC IV diuretics for now - echocardiogram poor study, ejection fraction 60 to 65%, Obesity - Nutrition consult ordered Prediabetic - Carb controlled diet - Monitor BG with AM labs Anxiety Depression Insomnia - Continue home meds Trazodone and Venlafaxine Hypertension - Home medication Lisinopril/HCTZ, held for now-resume when appropriate - Monitor BP per unit protocol Plan discussed with the patient and answered all questions. d/w RN at bedside. Discussed with case management team. Her sats dropping with activity, she needs oxygen to go home.
--- NOTE | 2024-09-28 15:45 | P.DS ---
Admission Date: 09/26/24 Discharge Date: 09/28/24 Disposition: DC HOME/HOME HEALTH CARE Discharge Condition: GOOD Reason for Admission: Dyspnea, chest pain Hospital Course: Dyspnea likely secondary to obesity hypoventilation syndrome , Sleep Apnea -CT PE protocol negative for PE -Chest x-ray reviewed with: Chronic elevation of the left hemidiaphragm. The lungs appear clear of acute infiltrate. No significant pleural effusion noted. The heart is normal size. - Dr. Waters/Pulmonology consulted recs for: discharge home on a long-acting steroid inhaler and follow-up with me in 2 weeks will need outpatient pulmonary function testing sleep testing -CTA and venous doppler neg - echocardiogram poor study, ejection fraction 60 to 65%, Morbid Obesity with BMI 46 - consider weight loss Prediabetic - f/u with PCP Anxiety Depression Insomnia - Continue home meds Trazodone and Venlafaxine Hypertension - Home medication Lisinopril/HCTZ Hospital course: 49-year-old patient admitted with shortness of breath, it was felt secondary to sleep apnea, pulmonology was consulted, they recommended inhalers and follow-up with them as an outpatient with PFTs and sleep study, her symptoms slowly improving, she is requiring oxygen, discussed with case management, they were able to set up the home oxygen, when I see the patient tod ay she is doing well without any acute problems and feels ready to go home, otherwise no other acute issues going on so I am planning to discharge her to go home with home oxygen. Plan discussed with the patient and answered all questions. d/w RN at bedside. Vital Signs/Physical Exam: Temp Pulse Resp BP Pulse Ox 97.9 F 104 H 15 135/68 94 09/28/24 13:44 09/28/24 13:44 09/28/24 13:44 09/28/24 13:44 09/28/24 13:44 Laboratory Data at Discharge: WBC 10.70 thou/uL (4.3-10.9) 09/28/24 05:33 Hgb 13.1 g/dL (12.0-15.0) 09/28/24 05:33 Hct 38.8 % (36.0-45.0) 09/28/24 05:33 Plt Count 317 thou/uL (152-406) 09/28/24 05:33 PT 11.4 SECONDS (10-13.0) 09/25/24 12:18 INR 1.00 09/25/24 12:18 Sodium 132 mEq/L (136-145) L 09/28/24 05:33 Potassium 4.1 mEq/L (3.5-5.1) D 09/28/24 05:33 BUN 17 mg/dL (7-18) 09/28/24 05:33 Creatinine 0.64 mg/dL (0.55-1.02) 09/28/24 05:33 Glucose 113 mg/dL (74-106) H 09/28/24 05:33 Phosphorus 5.2 mg/dL (2.5-4.9) H 09/28/24 05:33 Magnesium 2.2 mg/dL (1.6-2.4) 09/28/24 05:33 Total Bilirubin 0.2 mg/dL (0.2-1.0) 09/25/24 12:18 AST 17 U/L (15-37) 09/25/24 12:18 ALT 36 U/L (13-56) 09/25/24 12:18 Alkaline Phosphatase 51 U/L (45-117) 09/25/24 12:18 Triglycerides 132 mg/dL (<150) 09/26/24 05:25 Cholesterol 156 mg/dL (<200) 09/26/24 05:25 HDL Cholesterol 46 mg/dL (40-60) 09/26/24 05:25 Cholesterol/HDL Ratio 3.39 09/26/24 05:25 Home Medications: Lisinopril/Hydrochlorothiazide [Lisinopril-Hctz 10-12.5 mg Tab] 10 - 12.5 mg PO DAILY 09/26/24 Trazodone [Desyrel*] 100 mg PO BEDTIME 09/26/24 Venlafaxine HCl [Venlafaxine HCl ER] 150 mg PO DAILY 09/26/24 Albuterol Sulfate [Proair Respiclick] 90 mcg IH Q4H PRN 30 Days #1 inh 09/28/24 Mometasone/Formoterol [Dulera 200 Mcg/5 Mcg Inhaler] 2 puff IH BID 30 Days #1 inhaler 09/28/24 predniSONE [Prednisone*] 20 mg PO DAILY #3 tab 09/28/24 New Medications: Mometasone/Formoterol [Dulera 200 Mcg/5 Mcg Inhaler] 2 puff IH BID 30 Days #1 inhaler predniSONE [Prednisone*] 20 mg PO DAILY #3 tab Albuterol Sulfate [Proair Respiclick] 90 mcg IH Q4H PRN 30 Days #1 inh PRN Reason: Shortness Of Breath Followup: Matrin Waters MD [ACTIVE - CAN ADMIT] - 1 Week (f/u in 1 week for sleep study and PFT's) Alex Forbes DO [Primary Care Provider] - 1 Week (f/u with PCP in 5-7 days with CBC and CMP) Time spent managing pt's care (in minutes): 34
[2024-09-28 16:02] VITALS: BP 116/53
--- NOTE | 2024-09-30 11:37 | EKG ---
Test Date: 2024-09-25 Test Time: 11:04:57 Edge Bander Operator: OMERO MEASUREMENT RESULTS: Intervals: Rate: 99 NC: 128 QRSD: 80 QT: 352 QTc: 451 Hill: P: 78 NC: 128 QRS: 56 T: 54 INTERPRETIVE STATEMENTS: Sinus rhythm with premature atrial complexes Otherwise normal ECG No previous ECG available for comparison Electronically Signed On 09-30-24 11:25:03 CDT by Bret London
== END 2024-09-28 17:25 | disposition home health service (06) | DRG 189 ==
LOC: ER 10:47 → ERHOLD 15:07 → OBSVTOIN 09-26 11:42 → 4TH 09-26 12:50
PROVIDERS: ADMIT Hospitalist; ATTEND Hospitalist
DX: J96.21 Acute and chronic respiratory failure with hypoxia (principal); E66.2 Morbid (severe) obesity with alveolar hypoventilation; Z68.42 Body mass index [BMI] 45.0-49.9, adult; E87.1 Hypo-osmolality and hyponatremia; J96.22 Acute and chronic respiratory failure with hypercapnia; I10 Essential (primary) hypertension; F32.A Depression, unspecified; F41.9 Anxiety disorder, unspecified; R73.03 Prediabetes; Z79.52 Long term (current) use of systemic steroids; Z90.49 Acquired absence of other specified parts of digestive tract; Z79.899 Other long term (current) drug therapy
CPT/HCPCS: 36415; 71045; 71275; 76857; 80048; 80061; 80076; 81001; 82805; 83735; 83880; 84100; 84439; 84443; 84484; 85025; 85610; 93005; 93306; 93970; 94640; 96372; 96374; 99285; G0378; J1650; J1940; J3535; J7512; J7613; J7614; J7644; Q9967

== ENCOUNTER 2024-11-03 05:20 | Inpatient (IN) | payer SELFPAY ==
--- OUTSIDE RECORDS SUMMARY | 2024-11-03 05:24 | XMS REPORT | Continuity of Care Document ---
Author Name Unknown Address [address] [facility] [place] [address] [facility] [place] Address [address] [facility] [place] [address] Care Team Providers Care Chief Catalyst Operator Name Role Phone Alex Forbes Attending Clinician Unavailable GC_GCBZW_Kadiyala_S Attending Clinician Unavaila ble GC_GCBZW_Kadiyala_S Admitting Clinician Unavaila ble Payers Payer Name Policy Type Policy Number Effective Date Expirati on Date Source [facility] 6 [id number] 2021 00:00:00 [facility] [place] [facility] (PPO) [id number] 2021 00:00:00 [employer] 53 [id number] 2020 00:00:00 [facility] Problems Condition Name Condition Details [...] Hypertensi on Problem Active 09-25 00:00: 00 [facility] Medical Hypertensi ve disorder Hypertensi ve Disorder Problem Active 09-25 00:00: 00 [facility] Amenorrhea Amenorrhea Problem Active 09-25 00:00: 00 [facility] [id number] Adult BMI 40.0-44.9 kg/sq m Problem [facility] [id number] Insomnia, unspecifie d type Problem [facility] [id number] Morbid (severe) obesity due to excess calories Problem [facility] [id number] Generalize d anxiety disorder Problem [facility] [id number] Current moderate episode of major depressive disorder without prior episode Problem [facility] [id number] Abnormal mammogram of left breast Problem [facility] [id number] Injury of left knee, initial encounter Problem [facility] Social History Social Habit Start Date Stop Date Quantity Comments Source History of Tobacco Use [facility] Sex Assigned At [facility] Smoking Status Start Date Stop Date Source Never Smoker [facility] Medications Ordered Medication Name Filled Medication Name [...] TAKE 1 TABLET BY MOUTH EVERY DAY [facility] venlafaxine ER 150 mg capsule,ext ended release [...] - single dose syringe 2022-04-12 08:45:00 Completed [facility] Flucelvax - single dose syringe Flucelvax - single dose syringe 2022-04-12 08:45:00 Completed [facility] Flucelvax - single dose syringe Flucelvax - single dose syringe 2022-04-12 08:45:00 Completed [facility] Flucelvax - single dose syringe Flucelvax - single dose syringe 2022-04-12 08:45:00 Completed [facility] Afluria Afluria 2021-04-02 14:02:00 Completed [facility] Afluria Afluria 2021-04-02 14:02:00 Completed [facility] Afluria Afluria 2021-04-02 14:02:00 Completed [facility] Afluria Afluria 2021-04-02 14:02:00 Completed [facility] Afluria Afluria 2021-04-02 14:02:00 Completed [facility] Afluria Afluria 2021-04-02 14:02:00 Completed [facility] Afluria single dose Afluria single dose 08:10:00 Completed [facility] Afluria single dose Afluria single dose 08:10:00 Completed [facility] Afluria single dose Afluria single dose 08:10:00 Completed [facility] Afluria single dose Afluria single dose 08:10:00 Completed [facility] Afluria single dose Afluria single dose 08:10:00 Completed [facility] Afluria single dose Afluria single dose 08:10:00 Completed [facility] Adacel (Tdap) Adacel (Tdap) 2019-05-08 08:56:00 Completed [facility] Adacel (Tdap) Adacel (Tdap) 2019-05-08 08:56:00 Completed [facility] Adacel (Tdap) Adacel (Tdap) 2019-05-08 08:56:00 Completed [facility] Adacel (Tdap) Adacel (Tdap) 2019-05-08 08:56:00 Completed [facility] Adacel (Tdap) Adacel (Tdap) 2019-05-08 08:56:00 Completed [facility] Adacel (Tdap) Adacel (Tdap) 2019-05-08 08:56:00 Completed [facility] Afluria single dose Afluria single dose Unknown Completed [facility] Afluria Afluria Unknown Completed [facility] Flucelvax - single dose syringe Flucelvax - single dose syringe Unknown Completed [facility] Adacel (Tdap) Adacel (Tdap) Unknown Completed Co [facility] Afluria single dose Afluria single dose Unknown Completed [facility] Afluria Afluria Unknown Completed [facility] Flucelvax - single dose syringe Flucelvax - single dose syringe Unknown Completed [facility] Adacel (Tdap) Adacel (Tdap) Unknown Completed Co mmon [facility] Afluria single dose Afluria single dose Unknown Completed [facility] Afluria Afluria Unknown Completed [facility] Flucelvax - single dose syringe Flucelvax - single dose syringe Unknown Completed [facility] Adacel (Tdap) Adacel (Tdap) Unknown Completed [facility] Afluria single dose Afluria single dose Unknown Completed [facility] Afluria Afluria Unknown Completed [facility] Flucelvax - single dose syringe Flucelvax - single dose syringe Unknown Completed [facility] Adacel (Tdap) Adacel (Tdap) Unknown Completed [facility] Afluria single dose Afluria single dose Unknown Completed [facility] Afluria Afluria Unknown Completed [facility] Flucelvax - single dose syringe Flucelvax - single dose syringe Unknown Completed [facility] Adacel (Tdap) Adacel (Tdap) Unknown Completed [facility] Afluria (IIV4) - 3 years and older - SDS - 0.5mL Afluria (IIV4) - 3 years and older - SDS - 0.5mL Unknown Completed [facility] Afluria Afluria Unknown Completed [facility] Flucelvax (ccIIV4) - SDS - 0.5mL Flucelvax (ccIIV4) - SDS - 0.5mL Unknown Completed [facility] Adacel (Tdap) Adacel (Tdap) Unknown Completed [facility] Afluria (IIV4) - 3 years and older - SDS - 0.5mL Afluria (IIV4) - 3 years and older - SDS - 0.5mL Unknown Completed [facility] Afluria Afluria Unknown Completed [facility] Flucelvax (ccIIV4) - SDS - 0.5mL Flucelvax (ccIIV4) - SDS - 0.5mL Unknown Completed [facility] Adacel (Tdap) Adacel (Tdap) Unknown Completed [facility] Afluria (IIV4) - 3 years and older - SDS - 0.5mL Afluria (IIV4) - 3 years and older - SDS - 0.5mL Unknown Completed [facility] Afluria Afluria Unknown Completed [facility] Flucelvax (ccIIV4) - SDS - 0.5mL Flucelvax (ccIIV4) - SDS - 0.5mL Unknown Completed [facility] Adacel (Tdap) Adacel (Tdap) Unknown Completed [facility] Afluria (IIV4) - 3 years and older - SDS - 0.5mL Afluria (IIV4) - 3 years and older - SDS - 0.5mL Unknown Completed [facility] Afluria Afluria Unknown Completed [facility] Flucelvax (ccIIV4) - SDS - 0.5mL Flucelvax (ccIIV4) - SDS - 0.5mL Unknown Completed [facility] Adacel (Tdap) Adacel (Tdap) Unknown Completed [facility] Afluria (IIV4) - 3 years and older - SDS - 0.5mL Afluria (IIV4) - 3 years and older - SDS - 0.5mL Unknown Completed [facility] Afluria Afluria Unknown Completed [facility] Flucelvax (ccIIV4) - SDS - 0.5mL Flucelvax (ccIIV4) - SDS - 0.5mL Unknown Completed [facility] Adacel (Tdap) Adacel (Tdap) Unknown Completed [facility] Afluria (IIV4) - 3 years and older - SDS - 0.5mL Afluria (IIV4) - 3 years and older - SDS - 0.5mL Unknown Completed [facility] Afluria Afluria Unknown Completed [facility] Flucelvax (ccIIV4) - SDS - 0.5mL Flucelvax (ccIIV4) - SDS - 0.5mL Unknown Completed [facility] Adacel (Tdap) Adacel (Tdap) Unknown Completed [facility] Vital Signs Vital Name Observation Time Observation Value Comments Padilla sousa height 2024-08-08 09:00:00 63 [in_i] Commo n [facility] weight 2024-08-08 09:00:00 266.4 [lb_av] Co [facility] temperature 2024-08-08 09:00:00 97.5 [degF] Com [facility] bmi 2024-08-08 09:00:00 47.19 kg/m2 Comm on [facility] oximetry 2024-08-08 09:00:00 94 % Commo n [facility] respiratory rate 2024-08-08 09:00:00 18 /min [facility] blood pressure systolic 2024-08-08 09:00:00 122 mm[Hg] [facility] blood pressure diastolic 2024-08-08 09:00:00 78 mm[Hg] [facility] height 2024-05-23 09:30:00 63 [in_i] Commo n [facility] weight 2024-05-23 09:30:00 267.2 [lb_av] Co [facility] temperature 2024-05-23 09:30:00 98.6 [degF] Com mon [facility] bmi 2024-05-23 09:30:00 47.33 kg/m2 Comm on [facility] blood pressure systolic 2024-05-23 09:30:00 134 mm[Hg] [facility] blood pressure diastolic 2024-05-23 09:30:00 78 mm[Hg] [facility] height 2024-02-19 09:00:00 63 [in_i] Commo n [facility] weight 2024-02-19 09:00:00 256.0 [lb_av] Co mmon [facility] temperature 2024-02-19 09:00:00 98.0 [degF] Com mon [facility] bmi 2024-02-19 09:00:00 45.34 kg/m2 Comm on [facility] oximetry 2024-02-19 09:00:00 98 % Commo n [facility] respiratory rate 2024-02-19 09:00:00 18 /min [facility] blood pressure systolic 2024-02-19 09:00:00 136 mm[Hg] [facility] blood pressure diastolic 2024-02-19 09:00:00 77 mm[Hg] [facility] height 2024-02-19 09:00:00 63 [in_i] Commo n [facility] weight 2024-02-19 09:00:00 256.0 [lb_av] Co mmon [facility] temperature 2024-02-19 09:00:00 98.0 [degF] Com [facility] bmi 2024-02-19 09:00:00 45.34 kg/m2 Comm on [facility] oximetry 2024-02-19 09:00:00 98 % Commo n [facility] respiratory rate 2024-02-19 09:00:00 18 /min [facility] blood pressure systolic 2024-02-19 09:00:00 136 mm[Hg] [facility] blood pressure diastolic 2024-02-19 09:00:00 77 mm[Hg] [facility] BMI (Body Mass Index) 2023-09-26 00:00:00 44.5 kg/m2 [facility] BP Systolic 2023-09-26 00:00:00 150 mm[Hg] [facility] Body Weight 2023-09-26 00:00:00 251 [lb_av] [facility] BP Diastolic 2023-09-26 00:00:00 80 mm[Hg] [facility] Height 2023-09-26 00:00:00 63 [in_i] [facility] height 2023-09-07 08:40:00 63 [in_i] Commo n [facility] weight 2023-09-07 08:40:00 247.0 [facility]lb_av] [facility] 2023-09-07 08:40:00 97.9 [degF] Com [facility] bmi 2023-09-07 08:40:00 43.75 kg/m2 Comm on [facility] oximetry 2023-09-07 08:40:00 96 % Commo n [facility] respiratory rate 2023-09-07 08:40:00 17 /min [facility] blood pressure systolic 2023-09-07 08:40:00 139 mm[Hg] [facility] blood pressure diastolic 2023-09-07 08:40:00 77 mm[Hg] [facility] height 2023-09-07 08:40:00 63 [in_i] Commo n [facility] weight 2023-09-07 08:40:00 247.0 [lb_av] Co [facility] temperature 2023-09-07 08:40:00 97.9 [degF] Com [facility] bmi 2023-09-07 08:40:00 43.75 kg/m2 Comm on [facility] oximetry 2023-09-07 08:40:00 96 % Commo n [facility] respiratory rate 2023-09-07 08:40:00 17 /min [facility] blood pressure systolic 2023-09-07 08:40:00 139 mm[Hg] [facility] blood pressure diastolic 2023-09-07 08:40:00 77 mm[Hg] [facility] height 2023-05-09 08:00:00 63 [in_i] Commo n [facility] weight 2023-05-09 08:00:00 247.6 [lb_av] Co mmon [facility] temperature 2023-05-09 08:00:00 98.3 [degF] Com [facility] bmi 2023-05-09 08:00:00 43.86 kg/m2 Comm on [facility] oximetry 2023-05-09 08:00:00 93 % Commo n [facility] respiratory rate 2023-05-09 08:00:00 16 /min [facility] blood pressure systolic 2023-05-09 08:00:00 138 mm[Hg] [facility] blood pressure diastolic 2023-05-09 08:00:00 86 mm[Hg] [facility] height 2023-01-23 10:50:00 63 [in_i] Commo n [facility] weight 2023-01-23 10:50:00 240.0 [lb_av] Co mmon [facility] temperature 2023-01-23 10:50:00 97.4 [degF] Com [facility] bmi 2023-01-23 10:50:00 42.51 kg/m2 Comm on [facility] oximetry 2023-01-23 10:50:00 98 % Commo n [facility] respiratory rate 2023-01-23 10:50:00 18 /min [facility] blood pressure systolic 2023-01-23 10:50:00 133 mm[Hg] [facility] blood pressure diastolic 2023-01-23 10:50:00 72 mm[Hg] [facility] height 2022-10-24 11:50:00 63 [in_i] Commo n [facility] weight 2022-10-24 11:50:00 253 [lb_av] Comm on [facility] bmi 2022-10-24 11:50:00 44.81 kg/m2 Comm on [facility] blood pressure systolic 2022-10-24 11:50:00 130 mm[Hg] [facility] blood pressure diastolic 2022-10-24 11:50:00 72 mm[Hg] [facility] height 2022-07-01 11:20:00 63 [in_i] Commo n [facility] weight 2022-07-01 11:20:00 243 [lb_av] Comm on [facility] bmi 2022-07-01 11:20:00 43.04 kg/m2 Comm on [facility] height 2022-06-20 09:00:00 63 [in_i] Commo n [facility] weight 2022-06-20 09:00:00 243 [lb_av] Comm on [facility] temperature 2022-06-20 09:00:00 98 [degF] Comm on [facility] bmi 2022-06-20 09:00:00 43.04 kg/m2 Comm on [facility] blood pressure systolic 2022-06-20 09:00:00 132 mm[Hg] [facility] blood pressure diastolic 2022-06-20 09:00:00 76 mm[Hg] [facility] height 2022-04-12 08:20:00 63 [in_i] Commo n [facility] weight 2022-04-12 08:20:00 243.5 [lb_av] Co mmon [facility] temperature 2022-04-12 08:20:00 97.8 [degF] Com mon [facility] bmi 2022-04-12 08:20:00 43.13 kg/m2 Comm on [facility] oximetry 2022-04-12 08:20:00 96 % Commo n [facility] respiratory rate 2022-04-12 08:20:00 17 /min [facility] blood pressure systolic 2022-04-12 08:20:00 121 mm[Hg] [facility] blood pressure diastolic 2022-04-12 08:20:00 76 mm[Hg] [facility] height 2022-01-10 08:20:00 63 [in_i] Commo n [facility] weight 2022-01-10 08:20:00 236.3 [lb_av] Co mmon [facility] temperature 2022-01-10 08:20:00 97.9 [degF] Com [facility] bmi 2022-01-10 08:20:00 41.85 kg/m2 Comm on [facility] oximetry 2022-01-10 08:20:00 96 % Commo n [facility] respiratory rate 2022-01-10 08:20:00 16 /min [facility] blood pressure systolic 2022-01-10 08:20:00 132 mm[Hg] [facility] blood pressure diastolic 2022-01-10 08:20:00 72 mm[Hg] [facility] height 2021-12-09 10:30:00 63 [in_i] Commo n [facility] weight 2021-12-09 10:30:00 230.4 [lb_av] Co mmon [facility] temperature 2021-12-09 10:30:00 97.7 [degF] Com mon [facility] bmi 2021-12-09 10:30:00 40.81 kg/m2 Comm on [facility] oximetry 2021-12-09 10:30:00 96 % Commo n [facility] respiratory rate 2021-12-09 10:30:00 17 /min [facility] blood pressure systolic 2021-12-09 10:30:00 135 mm[Hg] [facility] blood pressure diastolic 2021-12-09 10:30:00 76 mm[Hg] [facility] height 2021-07-28 11:10:00 63 [in_i] Commo n [facility] weight 2021-07-28 11:10:00 225 [lb_av] Comm on [facility] temperature 2021-07-28 11:10:00 98 [degF] Comm on [facility] bmi 2021-07-28 11:10:00 39.85 kg/m2 Comm on [facility] blood pressure systolic 2021-07-28 11:10:00 130 mm[Hg] [facility] blood pressure diastolic 2021-07-28 11:10:00 75 mm[Hg] [facility] height 2021-07-23 09:40:00 63 [in_i] Commo n [facility] weight 2021-07-23 09:40:00 226 [lb_av] Comm on [facility] bmi 2021-07-23 09:40:00 40.03 kg/m2 Comm on [facility] height 2021-04-27 14:00:00 63 [in_i] Commo n [facility] weight 2021-04-27 14:00:00 226.9 [lb_av] Co mmon [facility] temperature 2021-04-27 14:00:00 97.1 [degF] Com mon [facility] bmi 2021-04-27 14:00:00 40.19 kg/m2 Comm on [facility] oximetry 2021-04-27 14:00:00 99 % Commo n [facility] respiratory rate 2021-04-27 14:00:00 18 /min [facility] blood pressure systolic 2021-04-27 14:00:00 131 mm[Hg] [facility] blood pressure diastolic 2021-04-27 14:00:00 71 mm[Hg] [facility] Procedures Procedure Date / Time Performed Performing Clinicia n Source Appendectomy 2017-07-03 00:00:00 [facility] M edical Cholecystectomy (Gallbladder) 2017-07-03 00:00:00 [facility] Medical Plan of Care Planned Activity Planned Date Details Comments Source Diagnostic Test Pending 2023-09-26 00:00:00 FSH (follicle-stimulati ng hormone), serum [code = FSH (follicle-stimulati ng hormone), serum] [facility] Diagnostic Test Pending 2023-09-26 00:00:00 estr adiol, serum [code = estradiol, serum] [facility] Diagnostic Test Pending 2023-09-26 00:00:00 pap, LB + HPV [code = pap, LB + HPV] [facility] Encounters Start Date/Time End Date/Time Encounter Type Admission Type Attending Clinicians Care Facility Care Department Encounter ID Source 2024-08-06 13:19:00 Outpatient Forbes, [facility] [id number] [facility] 2024-08-02 08:32:00 [facility] [id number] [facility] 2024-05-24 08:36:00 Outpatient Forbes, [facility] [id number] [facility] 2024-05-21 14:01:00 Outpatient Forbes, [facility] [id number] [facility] 2022-06-16 14:28:00 Outpatient Forbes, [facility] [id number] [facility] 2022-01-11 07:41:00 Outpatient Forbes, [facility] [id number] [facility] 2021-12-10 08:01:01 Outpatient Forbes, [facility] [id number] [facility] 2021-12-08 14:25:01 Outpatient Forbes, [facility] [id number] [facility] 2021-07-28 14:39:35 Outpatient Forbes, [facility] [id number] [facility] 2021-07-28 14:05:46 Outpatient Forbes, Alex [facility] [id number] [facility] 2021-07-28 13:54:15 Outpatient Forbes, Alex [facility] [id number] [facility] 2021-07-28 13:22:16 Outpatient Forbes, Alex [facility] [id number] [facility] 2021-07-28 13:05:52 Outpatient Forbes, [facility] [id number] [facility] 2021-07-28 12:08:20 Outpatient Forbes, Alex [facility] [id number] [facility] 2021-07-28 12:07:47 Outpatient Forbes, Alex [facility] [id number] [facility] 2021-07-28 11:30:03 Outpatient Forbes, Alex [facility] [id number] [facility] 2024-10-24 00:00:00 2024-10-24 00:00:00 (TEL) [facility] [id number] [facility] 2024-08-08 00:00:00 2024-08-08 00:00:00 OFFICE VISIT ESTAB PT LEVEL 3 [facility] [id number] [facility] 2024-08-02 00:00:00 2024-08-02 00:00:00 (TEL) [facility]LMLC [facility] [id number] [facility] 2024-08-02 00:00:00 2024-08-02 00:00:00 (TEL) [facility]C [facility] [id number] [facility] 2024-06-12 00:00:00 2024-06-12 00:00:00 (TEL) [facility]C [facility] [id number] [facility] 2024-05-23 00:00:00 2024-05-23 00:00:00 (SAWSMITH) New Patient [facility] [id number] [facility] 2024-05-22 00:00:00 2024-05-22 00:00:00 (TEL) [facility] [id number] [facility] 2024-05-22 00:00:00 2024-05-22 00:00:00 (TEL) [facility]C [facility] [id number] [facility] 2024-02-19 00:00:00 2024-02-19 00:00:00 OFFICE VISIT ESTAB PT LEVEL 4 [facility] [id number] [facility] 2024-01-30 00:00:00 2024-01-30 00:00:00 (TEL) STLMLC ST[facility] [id number] [facility] 2024-01-23 00:00:00 2024-01-23 00:00:00 (TEL) STLMLC STL[facility] [id number] [facility] 2023-09-27 00:00:00 2023-09-27 00:00:00 Outpatient GC_GCBZW_Ka diyala_S [facility] [id number] [facility] 2023-09-26 00:00:00 2023-09-26 00:00:00 Enid Tomlinson MD: [address] [place] [address] Dr [address], [address] [address], [place] [address] , Ph. [facility] - GC_GCBZW_[facility]* [id number] [facility] 2023-09-14 00:00:00 2023-09-14 00:00:00 (TEL) STLMLC [facility] [id number] [facility] 2023-09-08 00:00:00 2023-09-08 00:00:00 Outpatient GC_GCBZW_Ka diyala_S [facility] [id number] [facility] 2023-09-07 00:00:00 2023-09-07 00:00:00 OFFICE VISIT ESTAB PT LEVEL 4 [facility] ST[facility] [id number] [facility] 2023-07-17 00:00:00 2023-07-17 00:00:00 (TEL) STLMLC STLMLC [id number] [facility] 2023-05-09 00:00:00 2023-05-09 00:00:00 (WELLNESS) Wellness Visit STLMLC STLMLC [id number] [facility] 2023-05-05 00:00:00 2023-05-05 00:00:00 (TEL) STLMLC STLMLC [id number] [facility] 2023-01-23 00:00:00 2023-01-23 00:00:00 OFFICE VISIT ESTAB PT LEVEL 4 STLMLC STLMLC [id number] [facility] 2023-01-23 00:00:00 2023-01-23 00:00:00 (TEL) STLMLC STLMLC [id number] [facility] 2022-10-24 00:00:00 2022-10-24 00:00:00 OFFICE VISIT ESTAB PT LEVEL 4 STLMLC STLMLC [id number] [facility] 2022-10-24 00:00:00 2022-10-24 00:00:00 (TEL) STLMLC STLMLC [id number] [facility] 2022-09-26 00:00:00 2022-09-26 00:00:00 (TEL) STLMLC STLMLC [id number] [facility] 2022-07-01 00:00:00 2022-07-01 00:00:00 (TEL) STLMLC STLMLC [id number] [facility] 2022-07-01 00:00:00 2022-07-01 00:00:00 OFFICE VISIT EST PT LEVEL 3 STLMLC STLMLC [id number] [facility] 2022-06-20 00:00:00 2022-06-20 00:00:00 OFFICE VISIT ESTAB PT LEVEL 4 STLMLC STLMLC [id number] [facility] 2022-04-12 00:00:00 2022-04-12 00:00:00 PREV VISIT EST AGE 40-64 STLMLC STLMLC [id number] [facility] 2022-01-10 00:00:00 2022-01-10 00:00:00 OFFICE VISIT ESTAB PT LEVEL 4 STLMLC STLMLC [id number] [facility] 2021-12-09 00:00:00 2021-12-09 00:00:00 OFFICE VISIT ESTAB PT LEVEL 4 STLMLC STLMLC [id number] [facility] 2021-07-28 00:00:00 2021-07-28 00:00:00 OFFICE VISIT EST PT LEVEL 3 STLMLC STLMLC [id number] [facility] 2021-07-23 00:00:00 2021-07-23 00:00:00 OFFICE VISIT EST PT LEVEL 3 STLMLC STLMLC [id number] [facility] 2021-07-21 00:00:00 2021-07-21 00:00:00 (TEL) STLMLC STLMLC [id number] [facility] 2021-06-02 00:00:00 2021-06-02 00:00:00 (TEL) STLMLC STLMLC [id number] [facility] 2021-04-27 00:00:00 2021-04-27 00:00:00 PREV VISIT EST AGE 40-64 STLMLC STLMLC [id number] [facility] 2020-12-31 00:00:00 2020-12-31 00:00:00 Outpatient STLMLC STLMLC [id number] [facility] 2020-11-19 00:00:00 2020-11-19 00:00:00 Outpatient STLMLC STLMLC [id number] [facility] 2020-11-18 00:00:00 2020-11-18 00:00:00 Outpatient STLMLC STLC [id number] [facility] 2020-05-27 00:00:00 2020-05-27 00:00:00 Outpatient STLMLC STLMLC [id number] [facility] 2020-05-07 00:00:00 2020-05-07 00:00:00 Outpatient STLC STLC [id number] [facility] 2020-01-07 09:45:00 2020-01-07 09:45:00 Outpatient [facility] [id number] [facility] Results Test Description Test Time Test Comments Results Result Co mments Source HEMOGLOBIN [id number] 00:00:00* Test Item Value Reference Range Interpretation Comme [facility] HEMOGLOBIN A1c (test code = 4548-4) 6.1 % See_Comment H [Automated messa ge] The system which generated this result transmitted reference range: 4.2-5.6 %. The reference range was not used to interpret this result as normal/abnormal. HEMOGLOBIN [id number] 00:00:00* Test Item Value Reference Range Interpretation Comme [facility] HEMOGLOBIN A1c (test code = 4548-4) 5.9 % See_Comment H [Automated messa ge] The system which generated this result transmitted reference range: 4.2-5.6 %. The reference range was not used to interpret this result as normal/abnormal. HEMOGLOBIN [id number] 00:00:00* Test Item Value Reference Range Interpretation Comme [facility] HEMOGLOBIN A1c (test code = 4548-4) 6.0 % See_Comment H [Automated messa ge] The system which generated this result transmitted reference range: 4.2-5.6 %. The reference range was not used to interpret this result as normal/abnormal.
[2024-11-03] MEDS ORDERED: FUROSEMIDE 40 MG/4 ML VIAL ONE (05:46)
[2024-11-03 05:59] LABS: Absolute Basophils 0.1 K/uL (0-0.5); Absolute Eosinophils 0.3 K/uL (0-0.5); Absolute Lymphocytes (CBC) 2.5 K/uL (0.7-4.9); Absolute Monocytes 0.9 K/uL (0.1-1.3); Absolute Neutrophil 5.8 K/uL (1.8-8.0); Basophils % 0.8 % (0-1.3); Eosinophils % 3.1 % (0-4.4); Hematocrit 35.8 % (36.0-45.0); Hemoglobin 12.1 g/dL (12.0-15.0); Lymphocytes % 26.5 % (15.3-44.8); MCH 31.1 pg (27.0-35.0); MCHC 33.7 g/dL (32.0-36.0); MCV 92.5 fL (80-100); MPV 7.6 fL (7.6-11.3); Monocytes % 9.1 % (3.3-12.3); Neutrophils % 60.5 % (41.7-73.7); Nucleated Red Blood Cells % 0.2 % (0-0); Platelets 318 thou/uL (152-406); RBC Red Blood Cell Count 3.87 M/uL (3.86-4.86); Red Cell Distribution Width 14.9 % (12.1-15.2)
[2024-11-03 06:23] LABS: Arterial Blood Carboxyhemoglob 0.7 % (0-1.5); Blood Gas Oxyhemoglobin 95.8 % (94-97); Blood Gas THB 12.7 g/dl (12-18); Blood O2 Saturation 98.5 % (92-98.5)
[2024-11-03 06:28] LABS: ALT/SGPT 40 U/L (13-56); AST/SGOT 21 U/L (15-37); Albumin 3.4 g/dL (3.4-5.0); Albumin/Globulin Ratio 0.8 (1.1-1.8); Alkaline Phosphatase 57 U/L (45-117); Anion Gap 3.8 mEq/L (5.0-15.0); BUN Blood Urea Nitrogen 14 mg/dL (7-18); Bicarbonate 38 mEq/L (21-32); Bilirubin Total 0.2 mg/dL (0.2-1.0); Globulin 4.1 g/dL (2.3-3.5); Glomerular Filtration Rate 110 ml/min (=/>90); Glucose Level 120 mg/dL (74-106); NT PRO-BNP 19 pg/mL (<125); Potassium 3.8 mEq/L (3.5-5.1); Protein, Total 7.5 g/dL (6.4-8.2); Sodium Level 136 mEq/L (136-145); Troponin High Sensitivity 6.9 pg/mL (<58.9)
[2024-11-03 06:42] LABS: Bilirubin Direct < 0.2 mg/dL (0-0.2)
--- NOTE | 2024-11-03 06:52 | ER ---
Nurse's Notes [facility] Name: Mahnaz Pimentel Age: 49 yrs Sex: Female : 1975 Arrival Date: 11/03/2024 Time: 05:20 Bed 18 Private MD: Diagnosis: Hypercarbic respiratory failure Presentation: 11/03 05:30 Chief complaint: Patient states: SOB X1 day. Coronavirus screen: Client denies travel lg3 out of the [place] in the last 14 days. Ebola Screen: No symptoms or risks identified at this time. Initial Sepsis Screen: Does the patient meet any 2 criteria? RR > 20 per min. HR > 90 bpm. Yes Does the patient have a suspected source of infection? No. Patient's initial sepsis screen is negative. Risk Assessment: Do you want to hurt yourself or someone else? Patient reports no desire to harm self or others. Onset of symptoms was November 02, 2024. Care prior to arrival: Medication(s) given: Solu-Medrol 125mg IV initiated. 20 GA, in the left in the right antecubital area, Oxygen administered. via nasal cannula. 05:30 Method Of Arrival: EMS: [facility] lg3 05:30 Acuity: RAHEEM 2 lg3 Triage Assessment: 05:30 General: Appears distressed, uncomfortable, Behavior is cooperative, anxious. Pain: lg3 Denies pain. EENT: No deficits noted. No signs and/or symptoms were reported regarding the EENT system. Neuro: Maldonado Agitation-Sedation Scale (RASS): +1 Restless Level of Consciousness is awake, alert, obeys commands, Oriented to person, place, time, situation. Cardiovascular: Reports shortness of breath, Heart tones S1 S2 present Capillary refill < 3 seconds Clubbing of nail beds is absent JVD is absent Patient's skin is warm and dry. Rhythm is sinus tachycardia with unifocal PVCs Chest pain is denied. Respiratory: Reports shortness of breath at rest air hunger labored breathing Airway is patent Respiratory effort is shallow, weak, Respiratory pattern is hyperventilation tachypnea Breath sounds are absent in bilateral lower lobes Onset: The symptoms/episode began/occurred yesterday, the patient has moderate shortness of breath. GI: No deficits noted. No signs and/or symptoms were reported involving the gastrointestinal system. : No signs and/or symptoms were reported regarding the genitourinary system. Derm: No deficits noted. No signs and/or symptoms reported regarding the dermatologic system. Skin is intact, is healthy with good turgor, Skin is dry, Skin is normal, Skin temperature is warm. Musculoskeletal: No deficits noted. No signs and/or symptoms reported regarding the musculoskeletal system. Circulation, motion, and sensation intact. Range of motion: intact in all extremities. 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 - Infectious Disease History:: Denies. - Social history:: Smoking status: Patient denies any tobacco usage or history of. Patient uses alcohol, occasionally. - Family history:: not pertinent. Screenin:30 [facility] ED Fall Risk Assessment (Adult) History of falling in the last 3 months, lg3 including since admission No falls in past 3 months (0 pts) Confusion or Disorientation No (0 pts) Intoxicated or Sedated No (0 pts) Impaired Gait No (0 pts) Mobility Assist Device Used No (0 pt) Altered Elimination No (0 pt) Score/Fall Risk Level 0 - 2 = Low Risk Oriented to surroundings, Maintained a safe environment, Educated pt \T\ family on fall prevention, incl call for assistance when getting out of bed, Assessed \T\ reinforced patient's understanding of fall precautions. Abuse screen: Denies threats or abuse. Denies injuries from another. Nutritional screening: No deficits noted. Tuberculosis screening: No symptoms or risk factors identified. Assessment: 05:40 General: see triage assessment. Cardiovascular: Reports shortness of breath, Heart lg3 tones S1 S2 present Capillary refill < 3 seconds Clubbing of nail beds is absent JVD is absent Patient's skin is warm and dry. Rhythm is sinus tachycardia with unifocal PVCs. Respiratory: Airway is patent Respiratory effort is shallow, weak, Respiratory pattern is hyperventilation tachypnea Patient placed on BiPAP: Breath sounds are absent in bilateral lower lobes the patient has moderate shortness of breath. 06:50 Reassessment: Patient appears in no apparent distress at this time. No changes from lg3 previously documented assessment. Patient and/or family updated on plan of care and expected duration. Pain level reassessed. Patient is alert, oriented x 3, equal unlabored respirations, skin warm/dry/pink. Patient states symptoms have improved. Vital Signs: 05:30 BP 164 / 90; Pulse 106; Resp 31 S; Temp 98.7(A); Pulse Ox 93% on 3 lpm NC; Weight lg3 127.01 kg (R); Height 5 ft. 3 in. ; Pain 0/10; 05:40 BP 146 / 98; Pulse 106; Resp 21 S; Pulse Ox 100% on Non-rebreather mask; lg3 06:34 BP 154 / 75; Pulse 106; Resp 19 S; Pulse Ox 100% on Non-rebreather mask; lg3 05:30 Body Mass Index 49.60 (127.01 kg, 160.02 cm) lg3 05:30 Pain Scale: Adult lg3 ED Course: 05:21 Patient arrived in ED. jj6 05:26 Juliet Cohen, ROSENDO is Primary Nurse. lg3 05:29 Earnest Saldivar MD is Attending Physician. rt 05:30 Maintain EMS IV. Dressing intact. Good blood return noted. Site clean \T\ dry. Gauge \T\ lg 3 site: 20G L\T\R AC. Flushed with 10 mL NS. Oxygen administration administration via face mask. 05:30 Arm band placed on right wrist. lg3 05:30 Patient has correct armband on for positive identification. Placed in gown. Bed in low lg3 position. Call light in reach. Side rails up X 1. Client placed on continuous cardiac and pulse oximetry monitoring. NIBP monitoring applied. manager fiber on. Door closed. Noise minimized. Warm blanket given. Pillow given. Family accompanied patient. 05:54 Basic Metabolic Panel Sent. br2 05:54 CBC with Diff Sent. br2 05:54 LFT's Sent. br2 05:54 NT PRO-BNP Sent. br2 05:54 Troponin HS Sent. br2 05:59 Triage completed. lg3 06:52 Burton Soto MD is Hospitalizing Provider. rt 06:57 XRAY Chest (1 view) In Process Unspecified. EDMS Administered Medications: 06:34 Drug: Furosemide IVP 40 mg IVP once; give over 2 minutes Route: IVP; Site: right lg3 antecubital; Outcome: 06:52 Decision to Hospitalize by Provider. rt 09:42 Patient left the ED. ll1 Signatures: Dispatcher [employer] EDMS Juliet Cohen RN RN lg3 Lupis Griffin RN RN ll1 Jany Cruz jj6 Earnest Saldivar MD MD rt Neeta Donahue RN RN br2 Corrections: (The following items were deleted from the chart) 06:04 05:59 General: Appears distressed, uncomfortable, Behavior is cooperative, anxious, lg3 lg3 06:04 05:59 Pain: Denies pain. lg3 lg3 06:04 05:59 EENT: No deficits noted. No signs and/or symptoms were reported regarding the lg3 EENT system. lg3 06:04 05:59 Neuro: Maldonado Agitation-Sedation Scale (RASS): +1 Restless Level of lg3 Consciousness is awake, alert, obeys commands, Oriented to person, place, time, situation, lg3 06:04 05:59 Cardiovascular: Reports shortness of breath, Heart tones S1 S2 present Capillary lg3 refill < 3 seconds Clubbing of nail beds is absent JVD is absent Patient's skin is warm and dry. Rhythm is sinus tachycardia with unifocal PVCs Chest pain is denied lg3 06:04 05:59 Respiratory: Reports shortness of breath at rest air hunger labored breathing lg3 Airway is patent Respiratory effort is shallow, weak, Respiratory pattern is hyperventilation tachypnea Breath sounds are absent in bilateral lower lobes Onset: The symptoms/episode began/occurred yesterday, the patient has moderate shortness of breath lg3 06:04 05:59 GI: No deficits noted. No signs and/or symptoms were reported involving the lg3 gastrointestinal system. lg3 06:04 05:59 : No signs and/or symptoms were reported regarding the genitourinary system. lg3lg3 06:04 05:59 Derm: No deficits noted. No signs and/or symptoms reported regarding the lg3 dermatologic system. Skin is intact, is healthy with good turgor, Skin is dry, Skin is normal, Skin temperature is warm lg3 06:04 05:59 Musculoskeletal: No deficits noted. No signs and/or symptoms reported regarding lg3 the musculoskeletal system. Circulation, motion, and sensation intact. Range of motion: intact in all extremities, lg3 06:09 05:40 BP 146 / 98; Pulse 106bpm; Resp 21bpm; Spontaneous; Pulse Ox 100% BiPAP; lg3 lg3
--- NOTE | 2024-11-03 06:52 | EDPHYS ---
Physician Documentation [facility] Name: Mahnaz Pimentel Age: 49 yrs Sex: Female : 1975 Arrival Date: 11/03/2024 Time: 05:20 Bed 18 Private MD: ED Physician Earnest Saldivar HPI: 11/03 06:38 This 49 yrs old Female presents to ER via EMS with complaints of Shortness Of Breath. rt 06:38 Patient presents to the ED with dyspnea. Patient was seen admitted recently for OHS, rt states that her breathing worsened tonight. Reports worsening bilateral extremity edema. Denies other acute complaints at this time, symptoms are moderate severity, no other aggravating alleviating factors.. 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 - Infectious Disease History:: Denies. - Social history:: Smoking status: Patient denies any tobacco usage or history of. Patient uses alcohol, occasionally. - Family history:: not pertinent. ROS: 06:38 Constitutional: Negative for fever, chills, and weight loss, Abdomen/GI: Negative for rt abdominal pain, nausea, vomiting, diarrhea, and constipation, MS/Extremity: Negative for injury and deformity, Skin: Negative for injury, rash, and discoloration, Neuro: Negative for headache, weakness, numbness, tingling, and seizure, 06:38 Cardiovascular: Positive for edema, Negative for chest pain, 06:38 Respiratory: Positive for cough, shortness of breath, Exam: 06:38 Constitutional: This is a well developed, well nourished patient who is awake, alert, rt and in no acute distress. Head/Face: Normocephalic, atraumatic. Chest/axilla: Normal chest wall appearance and motion. Nontender with no deformity. No lesions are appreciated. Cardiovascular: Regular rate and rhythm with a normal S1 and S2. No gallops, murmurs, or rubs. Normal PMI, no JVD. No pulse deficits. Abdomen/GI: Soft, non-tender, with normal bowel sounds. No distension or tympany. No guarding or rebound. No evidence of tenderness throughout. Skin: Warm, dry with normal turgor. Normal color with no rashes, no lesions, and no evidence of cellulitis. Neuro: Awake and alert, GCS 15, oriented to person, place, time, and situation. Cranial nerves II-XII grossly intact. Motor strength 5/5 in all extremities. Sensory grossly intact. Cerebellar exam normal. Normal gait. 06:38 ECG was reviewed by the Attending Physician. 06:38 Respiratory: Globally diminished breath sounds, faint bibasilar crackles, mild respiratory distress, Vital Signs: 05:30 BP 164 / 90; Pulse 106; Resp 31 S; Temp 98.7(A); Pulse Ox 93% on 3 lpm NC; Weight lg3 127.01 kg (R); Height 5 ft. 3 in. ; Pain 0/10; 05:40 BP 146 / 98; Pulse 106; Resp 21 S; Pulse Ox 100% on Non-rebreather mask; lg3 06:34 BP 154 / 75; Pulse 106; Resp 19 S; Pulse Ox 100% on Non-rebreather mask; lg3 05:30 Body Mass Index 49.60 (127.01 kg, 160.02 cm) lg3 05:30 Pain Scale: Adult lg3 MDM: 05:31 Medical Screening Exam initiated rt 06:52 Differential diagnosis: Obesity hypoventilation syndrome, hypercarbic hypoxemic rt respiratory failure, pneumonia. Data reviewed: vital signs, nurses notes, lab test result(s). Consideration of Admission/Observation Patient was admitted/placed on observation. Management of patient was discussed with the following: Hospitalist: Agrees to admit. I considered the following discharge prescriptions or medication management in the emergency department Medications were administered in the Emergency Department. See MAR. Test considered but Not performed: CT: Low suspicion for PE, CT angiogram not indicated. Care significantly affected by the following chronic conditions: Hypertension. Counseling: I had a detailed discussion with the patient and/or guardian regarding the historical points, exam findings, and any diagnostic results supporting the discharge/admit diagnosis, lab results, the need for further work-up and treatment in the hospital. Response to treatment: the patient's symptoms have markedly improved after treatment. 11/03 05:43 Order name: Basic Metabolic Panel; Complete Time: 06:47 rt 11/03 05:43 Order name: CBC with Diff; Complete Time: 06:17 rt 11/03 05:43 Order name: LFT's; Complete Time: 06:47 rt 05 05:43 Order name: NT PRO-BNP; Complete Time: 06:47 rt 11/03 05:43 Order name: Troponin HS; Complete Time: 06:47 rt 11/03 05:43 Order name: ABG; Complete Time: 06:47 rt 11/03 07:32 Order name: Basic Metabolic Panel EDMS 11/03 07:32 Order name: Basic Metabolic Panel EDMS 11/03 07:32 Order name: Basic Metabolic Panel EDMS 11/03 07:32 Order name: Basic Metabolic Panel EDMS 11/03 07:32 Order name: CBC with Automated Diff EDMS / 07:32 Order name: CBC with Automated Diff EDMS 11/03 07:32 Order name: CBC with Automated Diff EDMS 11/03 07:32 Order name: CBC with Automated Diff EDMS / 07:32 Order name: T4 Free EDMS 11/03 07:32 Order name: T4 Free EDMS 11/03 07:32 Order name: Thyroid Stimulating Hormone EDMS 11/03 07:32 Order name: Thyroid Stimulating Hormone EDMS 11/03 05:43 Order name: XRAY Chest (1 view) rt 11/03 05:43 Order name: BIPAP rt 11/03 05:43 Order name: EKG; Complete Time: 05:43 rt 11/03 05:43 Order name: Cardiac monitoring; Complete Time: 05:54 rt 11/03 05:43 Order name: EKG - Nurse/Tech; Complete Time: 05:54 rt 11/03 05:43 Order name: IV Saline Lock; Complete Time: 05:48 rt 11/03 05:43 Order name: Labs collected and sent; Complete Time: 05:55 rt 11/03 05:43 Order name: O2 Per Protocol; Complete Time: 05:55 rt 11/03 05:43 Order name: O2 Sat Monitoring; Complete Time: 05:55 rt EC:38 Rate is 101 beats/min. Rhythm is regular, Sinus tachycardia with PACs. QRS [place] is rt Normal. IA interval is normal. QRS interval is normal. QT interval is normal. No Q waves. T waves are Normal. No ST changes noted. Interpreted by me. Administered Medications: 06:34 Drug: Furosemide IVP 40 mg IVP once; give over 2 minutes Route: IVP; Site: right lg3 antecubital; Disposition: 06:52 Critical Care:. rt Disposition Summary: 11/03/24 06:52 Hospitalization Ordered Notes: Hospitalization Status: Inpatient Admission rt Provider: Burton Soto rt Condition: Fair rt Problem: an ongoing problem rt Symptoms: have improved rt Bed/Room Type: Standard rt Location: Telemetry/MedSurg (Inpatient)(11/03/24 08:19) em1 Room Assignment: 429(11/03/24 08:19) em1 Diagnosis - Hypercarbic respiratory failure rt Forms: - Medication Reconciliation Form rt - SBAR form rt - Leadership Thank You Letter rt Critical care time excluding procedures: 06:52 Critical care time: Bedside Care: 30 minutes, Consultation: 5 minutes. Total time: 35 rt minutes Signatures: Dispatcher [employer] Hiren Mcarthur em1 uJliet Cohen RN RN lg3 Earnest Saldivar MD MD rt Corrections: (The following items were deleted from the chart) 08:19 06:52 Intensive Care Unit rt em1 08:19 06:52 rt em1
[2024-11-03] MEDS ORDERED: MELATONIN 5 MG TABLET PO PRN (07:28)
[2024-11-03] MEDS ORDERED: ALBUTEROL 2.5 MG/3 ML NEB SOL NEB PRN (07:28)
[2024-11-03] MEDS ORDERED: ONDANSETRON 4 MG/2 ML VIAL IV PRN (07:28)
--- NOTE | 2024-11-03 08:57 | RAD REPORT ---
EXAMINATION: ONE VIEW CHEST XR CLINICAL INDICATION: DYSPNEA TECHNIQUE: Frontal chest projection is submitted. Examination is limited by patient positioning and t echnique. COMPARISON: 09/25/2024 FINDINGS: Chronic and related left hemidiaphragm is again noted with atelectasis base. Mild bilateral pulmonary opacities are present suggestive of pulmonary edema. The heart is mildly prominent in size.
[2024-11-03] MEDS ORDERED: HOME MED 1 EA UNK (Venlafaxine Hcl [Venlafaxine Hcl Er] 150 MG Tab.Er.24) PO SCH (09:00)
[2024-11-03] MEDS ORDERED: HOME MED 1 EA UNK (Lisinopril/Hydrochlorothiazide [Lisinopril-Hctz 10-12.5 Mg Tab] Tablet) PO SCH (09:00)
[2024-11-03 10:02] VITALS: BMI 49.6
--- NOTE | 2024-11-03 10:09 | P.CNS ---
Date of Consult: 11/03/24 Reason for Consult: Respiratory failure lower extremity edema Chief Complaint: Shortness of breath History of Present Illness: Patient is 49 years of age with a history of hypoxic hypercapnic respiratory failure I suspect secondary to underlying obstructive sleep apnea patient has not had ever had a sleep study done no CPAP at home has been dyspneic for the past week with lower extremity edema denies any cough or phlegm no fever or chills Allergies No Known Allergies Allergy (Verified 09/19/17 01:38) Home Medications: Lisinopril/Hydrochlorothiazide [Lisinopril-Hctz 10-12.5 mg Tab] 10 - 12.5 mg PO DAILY 09/26/24 Trazodone [Desyrel*] 100 mg PO BEDTIME PRN 09/26/24 Venlafaxine HCl [Venlafaxine HCl ER] 150 mg PO DAILY 09/26/24 Albuterol Sulfate [Proair Respiclick] 90 mcg IH Q4H PRN 30 Days #1 inh 09/28/24 Fluticasone Propion/Salmeterol [Fluticasone-Salmeterol 250-50] 1 each IH DAILY 11/03/24 - Past Medical/Surgical History Diabetic: No -: Hypertension -: Anxiety -: Sleep apnea -: depression -: Cholecystectomy -: appendectomy - Family History Mother Medical History: Diabetes, Cancer Notes: breast cancer, lung mass Father Medical History: Hypertension, Lung disease, Diabetes - Social History Alcohol use: Yes CD- Drugs: No Caffeine use: Yes Place of Residence: Home Review of Systems General: Weakness Respiratory: Shortness of Breath Cardiovascular: Edema Physical Examination Temp Pulse Resp BP Pulse Ox 98.7 F 106 H 19 154/75 H 98 11/03/24 09:55 11/03/24 10:04 11/03/24 10:04 11/03/24 10:04 11/03/24 06:30 General: Alert, Oriented x3 Respiratory: Clear to auscultation bilaterally, Diminished Cardiovascular: Normal pulses, Regular rate/rhythm, Normal S1 S2, Abnormal S3, Edema Laboratory Data (last 24 hrs) 11/03/24 11/03/24 05:50 05:50 WBC 9.60 Hgb 12.1 Hct 35.8 L Plt Count 318 Sodium 136 Potassium 3.8 BUN 14 Creatinine 0.63 Glucose 120 H Total Bilirubin 0.2 AST 21 ALT 40 Alkaline Phosphatase 57 - Problems (1) Acute on chronic respiratory failure with hypoxia and hypercapnia Current Visit: Yes Status: Acute Plan: Patient is 79 years of age admitted with acute on chronic hypoxic hypercapnic respiratory failure thyroid function test was normal in August she has symptoms consistent with sleep apnea cannot afford a sleep study or a CPAP machine blood pressure is elevated chest x-ray shows an elevated left hemidiaphragm labs reviewed plan to add Diamox and spironolactone continue with lisinopril and hydrochlorothiazide normal echocardiogram in August she will need to use her CPAP at home oxygenation satisfactory
--- NOTE | 2024-11-03 10:11 | P.HP ---
Certification for Inpatient Patient admitted to: Inpatient With expected LOS: >2 Midnights Patient will require the following post-hospital care: None Practitioner: I am a practitioner with admitting privileges, knowledge of patient current condition, hospital course, and medical plan of care. Services: Services provided to patient in accordance with Admission requirements found in Title 42 Section 412.3 of the Code of Federal Regulations Patient History Date of Service: 11/03/24 Reason for admission: Acute hypoxic/hypercapnic respiratory failure History of Present Illness: 49-year-old female with history of obesity hypoventilation syndrome, anxiety/depression, insomnia and hypertension presents the emergency department chief complaint of shortness of breath. She began to feel quite short of breath when lying down to go to sleep last night, she does have home oxygen at 2 3 L which he only uses as needed but has been needing to use more frequently lately. She is also noted increasing edema to her lower extremities over the course of the last month. She had a recent hospitalization from 09/26 to 09/28, during the hospitalization scan and CT PE protocol which was negative for PE, venous Dopplers were negative for DVT, echocardiogram was performed which was a poor quality study but did show an EF of around 60 to 65%. Patient was evaluated today in the emergency department her labs were significant for a normal white blood cell count bicarb of 38 glucose 120 ABG showed a pH of 7.3 pCO2 of 78.5 PO2 of 199. Patient was requiring BiPAP overnight, will be admitted for further management. Allergies No Known Allergies Allergy (Verified 09/19/17 01:38) Home Medications: Lisinopril/Hydrochlorothiazide [Lisinopril-Hctz 10-12.5 mg Tab] 10 - 12.5 mg PO DAILY 09/26/24 Trazodone [Desyrel*] 100 mg PO BEDTIME PRN 09/26/24 Venlafaxine HCl [Venlafaxine HCl ER] 150 mg PO DAILY 09/26/24 Albuterol Sulfate [Proair Respiclick] 90 mcg IH Q4H PRN 30 Days #1 inh 09/28/24 Fluticasone Propion/Salmeterol [Fluticasone-Salmeterol 250-50] 1 each IH DAILY 11/03/24 - Past Medical/Surgical History Diabetic: No -: Hypertension -: Anxiety -: Sleep apnea -: depression -: Obesity hypoventilation syndrome -: Cholecystectomy -: appendectomy - Family History Mother -: Diabetes, Cancer Notes: breast cancer, lung mass Father -: Hypertension, Lung disease, Diabetes - Social History Smoking Status: Never smoker Alcohol use: Yes CD- Drugs: No Caffeine use: Yes Place of Residence: Home Review of Systems 10-point ROS is otherwise unremarkable Respiratory: Shortness of Breath Physical Examination - Vital Signs Temperature: 98.7 F Blood Pressure: 146/98 Pulse: 106 Respirations: 21 Pulse Ox (%): 98 - Physical Exam General: Alert, In no apparent distress, Oriented x3 HEENT: Atraumatic, PERRLA Neck: Supple, 2+ carotid pulse no bruit, No LAD Respiratory: Clear to auscultation bilaterally, Normal air movement Cardiovascular: Regular rate/rhythm, Normal S1 S2, Edema (2+ pitting edema bilateral lower extremities) Gastrointestinal: Normal bowel sounds, No tenderness Musculoskeletal: No tenderness Integumentary: No rashes Neurological: Normal speech, Normal strength at 5/5 x4 extr - Studies Laboratory Data (last 24 hrs) 11/03/24 11/03/24 05:50 05:50 WBC 9.60 Hgb 12.1 Hct 35.8 L Plt Count 318 Sodium 136 Potassium 3.8 BUN 14 Creatinine 0.63 Glucose 120 H Total Bilirubin 0.2 AST 21 ALT 40 Alkaline Phosphatase 57 Assessment and Plan - Plan Assessment: Acute on chronic hypoxic/hypercapnic respiratory failure Lower extremity edema Anxiety/depression Insomnia Hypertension Plan: Acute on chronic hypoxic/hypercapnic respiratory failure Lower extremity edema Pulmonology consultation Nasal cannula, BiPAP as needed/at night Has not been able to get outpatient sleep study yet due to preoperative cost Lower extremity edema present, will diurese with Lasix as well Has home O2 2 to 3 L Anxiety/depression Insomnia Hypertension Continue home medications once verified DVT PPX: Lovenox Code status: Full code Discharge Plan: Home Plan to discharge in: 48 Hours - Advance Directives Does patient have a Living Will: No Does patient have a Durable POA for Healthcare: No - Code Status/Comfort Care Code Status Assessed: Yes (Full code) Critical Care: No Time Spent Managing Pts Care (In Minutes): 68
[2024-11-03] MEDS: DULERA 200/5 (MOMETASONE/FORMOTEROL) INHALER IH SCH (10:45)
[2024-11-03] MEDS: acetaZOLAMIDE 250 MG TAB PO SCH (11:00)
[2024-11-03] MEDS: ENOXAPARIN 40 MG/0.4 ML SQ SCH (11:00)
[2024-11-03] MEDS: SPIRONOLACTONE 25 MG TABLET PO SCH (11:00)
[2024-11-03] MEDS: ALBUTEROL 2.5 MG/3 ML NEB SOL NEB SCH (13:23)
[2024-11-03] MEDS: VENLAFAXINE HCL XR 75 MG CAP PO SCH (14:25)
[2024-11-03] MEDS: hydroCHLOROthiazide 12.5 MG CAP PO SCH (14:25)
[2024-11-03] MEDS: lisinopriL 10 MG TAB PO SCH (14:26)
[2024-11-03] MEDS ORDERED: FUROSEMIDE 20 MG/ 2ML VIAL IV SCH (17:00)
[2024-11-04] MEDS: TRAZODONE 50 MG TABLET PO PRN
[2024-11-04 05:30] LABS: Absolute Eosinophils 0.1 K/uL (0-0.5); Absolute Lymphocytes (CBC) 1.5 K/uL (0.7-4.9); Absolute Monocytes 1.2 K/uL (0.1-1.3); Absolute Neutrophil 10.2 K/uL (1.8-8.0); Basophils % 0.2 % (0-1.3); Eosinophils % 0.4 % (0-4.4); Hematocrit 37.6 % (36.0-45.0); Hemoglobin 12.4 g/dL (12.0-15.0); Lymphocytes % 11.9 % (15.3-44.8); MCH 30.5 pg (27.0-35.0); MCHC 32.9 g/dL (32.0-36.0); MCV 92.8 fL (80-100); MPV 7.4 fL (7.6-11.3); Monocytes % 8.9 % (3.3-12.3); Neutrophils % 78.6 % (41.7-73.7); Nucleated Red Blood Cells % 0.1 % (0-0); Platelets 342 thou/uL (152-406); RBC Red Blood Cell Count 4.06 M/uL (3.86-4.86); Red Cell Distribution Width 15.1 % (12.1-15.2)
[2024-11-04 05:58] LABS: Albumin 3.5 g/dL (3.4-5.0); Albumin/Globulin Ratio 0.8 (1.1-1.8); Anion Gap 7.6 mEq/L (5.0-15.0); Bilirubin Total 0.2 mg/dL (0.2-1.0); Globulin 4.3 g/dL (2.3-3.5); Potassium 3.6 mEq/L (3.5-5.1); Protein, Total 7.8 g/dL (6.4-8.2); Troponin High Sensitivity 5.2 pg/mL (<58.9)
[2024-11-04] MEDS: POTASSIUM CL SA 10 MEQ TAB PO ONE (08:53)
[2024-11-04] MEDS ORDERED: hydroCHLOROthiazide 12.5 MG CAP PO SCH (09:00)
[2024-11-04] MEDS ORDERED: lisinopriL 10 MG TAB PO SCH (09:00)
--- NOTE | 2024-11-04 09:15 | P.PN ---
Date of Service: 11/04/24 Subjective: No acute events overnight On BiPAP this morning ROS: 10 point ROS as noted above, otherwise negative Physical exam GEN: Alert, oriented, NAD HEENT: Normal conjunctiva, sclera anicteric CV: Regular rate and rhythm, 2+ pitting edema to bilateral lower extremities Pulm: Nonlabored respirations on BiPAP, nasal cannula throughout the day ABD: Soft, nontender, nondistended MSK: No joint tenderness Integumentary: No rashes Neuro: Normal speech, normal affect Vitals reviewed Assessment: Acute on chronic hypoxic/hypercapnic respiratory failure Lower extremity edema Anxiety/depression Insomnia Hypertension Plan: Acute on chronic hypoxic/hypercapnic respiratory failure Lower extremity edema Pulmonology consultation Nasal cannula, BiPAP as needed/at night Has not been able to get outpatient sleep study yet due to preoperative cost Lower extremity edema present Has home O2 2 to 3 L seen by pulmonology, continue lisinopril/hydrochlorothiazide started on spironolactone and Diamox Anxiety/depression Insomnia Hypertension Continue home medications once verified DVT PPX: Lovenox Code status: Full code Discharge Plan: Home Plan to discharge in: 48 Hours Time Spent Managing Pts Care (In Minutes): 35
[2024-11-04 12:06] LABS: Blood Gas Oxyhemoglobin 92.7 % (94-97); Blood O2 Saturation 95.3 % (92-98.5)
[2024-11-04 12:07] LABS: Arterial Blood Carboxyhemoglob 0.8 % (0-1.5); Blood Gas THB 13.3 g/dl (12-18)
--- NOTE | 2024-11-04 12:07 | EKG ---
Test Date: 2024-11-03 Test Time: 05:45:43 Document Control Clerk: FAREED MEASUREMENT RESULTS: Intervals: Rate: 101 FL: 136 QRSD: 90 QT: 358 QTc: 464 [place]: P: 45 FL: 136 QRS: 67 T: 72 INTERPRETIVE STATEMENTS: Sinus tachycardia with premature atrial complexes Otherwise normal ECG Compared to ECG 09/25/2024 12:22:08 No significant changes Electronically Signed On 11-04-24 12:05:25 CDT by Bret London
[2024-11-04 15:58] LABS: Blood O2 Saturation 96.7 % (92-98.5)
[2024-11-04 15:59] LABS: Arterial Blood Carboxyhemoglob 0.8 % (0-1.5); Blood Gas THB 12.7 g/dl (12-18)
[2024-11-05] MEDS: ACETAMINOPHEN 325 MG TABLET PO PRN (01:02)
[2024-11-05 04:49] LABS: Absolute Eosinophils 0.2 K/uL (0-0.5); Absolute Lymphocytes (CBC) 2.2 K/uL (0.7-4.9); Absolute Monocytes 0.9 K/uL (0.1-1.3); Absolute Neutrophil 6.4 K/uL (1.8-8.0); Basophils % 0.5 % (0-1.3); Eosinophils % 1.9 % (0-4.4); Hematocrit 36.2 % (36.0-45.0); Hemoglobin 12.2 g/dL (12.0-15.0); Lymphocytes % 22.5 % (15.3-44.8); MCH 31.4 pg (27.0-35.0); MCHC 33.8 g/dL (32.0-36.0); MCV 92.7 fL (80-100); MPV 7.6 fL (7.6-11.3); Monocytes % 8.9 % (3.3-12.3); Neutrophils % 66.2 % (41.7-73.7); Nucleated Red Blood Cells % 0.2 % (0-0); Platelets 291 thou/uL (152-406); Red Cell Distribution Width 14.9 % (12.1-15.2)
[2024-11-05 05:00] LABS: Anion Gap 6.8 mEq/L (5.0-15.0); Potassium 3.8 mEq/L (3.5-5.1)
[2024-11-05] MEDS: POTASSIUM CL SA 10 MEQ TAB PO ONE (10:34)
--- NOTE | 2024-11-05 10:35 | P.PN ---
Date of Service: 11/05/24 Subjective: Sleeping comfortable with bipap Attempt to wean off bipap prior to discharge Found to be tachycardic this afternoon, placed on telemetry, EKG showing sinus tach, Telemetry showing Afib, administered cardizem IV, no in sinus rhythm ROS: 10 point ROS as noted above, otherwise negative Physical exam GEN: Sleeping, NAD HEENT: Normal conjunctiva, sclera anicteric CV: Tachycardic, 2+ pitting edema to bilateral lower extremities Pulm: Nonlabored respirations on BiPAP, 2-3 Liters nasal cannula throughout the day ABD: Soft and nontender on palpation, nondistended MSK: No joint tenderness Integumentary: No rashes Neuro: Normal speech, normal affect Vitals reviewed Assessment: Acute on chronic hypoxic/hypercapnic respiratory failure Lower extremity edema Sinus tachycardia Anxiety/depression Insomnia Hypertension Plan: Acute on chronic hypoxic/hypercapnic respiratory failure Lower extremity edema Pulmonology consultation Nasal cannula, BiPAP as needed/at night, attempt to wean bipap Has not been able to get outpatient sleep study yet due to preoperative cost Lower extremity edema present Has home O2 2 to 3 L seen by pulmonology continue lisinopril/hydrochlorothiazide started on spironolactone and Diamox Sinus tachycardia -Cardiology consulted -Serial troponin pending -Cardizem IV x 1 -Continuous telemetry -EKG with Sinus tach Anxiety/depression Insomnia Hypertension Continue home medications once verified DVT PPX: Lovenox Code status: Full code Discharge Plan: Home Plan to discharge in: 48 Hours <Rosy Godfrey - Last Filed: 11/05/24 16:07> I agree with the physical exam, and assessment and plan with Nestor Godfrey NP. I have reviewed the findings and concur with the evaluation and management as documented. I have also supplemented and revise the note as needed reflect my own findings and medical decision making. Mickie Red MD <Mickie Red - Last Filed: 11/05/24 17:47>
[2024-11-05] MEDS: AMIODARONE HCL 150 MG in D5W 100 ML IV STA (11:42)
[2024-11-05] MEDS ORDERED: AMIODARONE HCL 900 MG in Dextrose 5%-Water 482 ML IV SCH (12:00)
[2024-11-05] MEDS: dilTIAZem HCL 25 MG/5 ML VIAL IV ONE (12:06)
[2024-11-06 05:13] LABS: Absolute Basophils 0.1 K/uL (0-0.5); Absolute Eosinophils 0.2 K/uL (0-0.5); Absolute Lymphocytes (CBC) 2.3 K/uL (0.7-4.9); Absolute Monocytes 1.2 K/uL (0.1-1.3); Absolute Neutrophil 7.3 K/uL (1.8-8.0); Basophils % 0.8 % (0-1.3); Eosinophils % 1.6 % (0-4.4); Hemoglobin 11.9 g/dL (12.0-15.0); Lymphocytes % 20.4 % (15.3-44.8); MCH 31.7 pg (27.0-35.0); MCV 93.2 fL (80-100); MPV 7.9 fL (7.6-11.3); Monocytes % 10.8 % (3.3-12.3); Neutrophils % 66.4 % (41.7-73.7); Nucleated Red Blood Cells % 0.1 % (0-0); Platelets 287 thou/uL (152-406); RBC Red Blood Cell Count 3.75 M/uL (3.86-4.86); Red Cell Distribution Width 14.8 % (12.1-15.2)
[2024-11-06 05:20] LABS: Anion Gap 5.8 mEq/L (5.0-15.0); Potassium 3.8 mEq/L (3.5-5.1); Troponin High Sensitivity 14.6 pg/mL (<58.9)
[2024-11-06] MEDS: ALBUTEROL 2.5 MG/3 ML NEB SOL NEB SCH (08:27)
[2024-11-06] MEDS: POTASSIUM CL SA 10 MEQ TAB PO ONE (08:49)
--- NOTE | 2024-11-06 11:36 | P.PN ---
Subjective Date of Service: 11/06/24 Chief Complaint: Chronic respiratory failure Subjective: Improving (Patient is improving doing well benefiting from BiPAP) Review of Systems General: Weakness Respiratory: Shortness of Breath Physical Examination - Vital Signs Temperature: 98.0 F Blood Pressure: 144/59 Pulse: 98 Respirations: 18 Pulse Ox (%): 92 - Physical Exam General: Alert, Oriented x3 Respiratory: Clear to auscultation bilaterally Assessment And Plan - Current Problems (Diagnosis) (1) Acute on chronic respiratory failure with hypoxia and hypercapnia Current Visit: Yes Status: Acute Plan: Patient admitted with acute on chronic respiratory failure is is improving doing better on BiPAP patient does not have any insurance cannot afford CPAP will contact [facility] prescription generated message sent to pet care worker check room air pulse ox labs chemistries reviewed add Diamox 250 mg twice a day at the time of discharge follow-up with me in 2 weeks
--- NOTE | 2024-11-06 11:45 | P.CNS ---
Date of Consult: 11/06/24 Chief Complaint: Chronic respiratory failure History of Present Illness: Patient with PMH of obesity hypoventaltion syndrome, chronic repiratory failure, presented to hospital with worsening SOB, lower extremities swelling, patient is on bipap and breathing is slowly improving, cardiology were consulted for run of AF, now she is in sinus rhythm, denies any chest pain, no syncope. Allergies No Known Allergies Allergy (Verified 09/19/17 01:38) Home medications list reviewed: Yes Home Medications: Lisinopril/Hydrochlorothiazide [Lisinopril-Hctz 10-12.5 mg Tab] 10 - 12.5 mg PO DAILY 09/26/24 Trazodone [Desyrel*] 100 mg PO BEDTIME PRN 09/26/24 Venlafaxine HCl [Venlafaxine HCl ER] 150 mg PO DAILY 09/26/24 Albuterol Sulfate [Proair Respiclick] 90 mcg IH Q4H PRN 30 Days #1 inh 09/28/24 Fluticasone Propion/Salmeterol [Fluticasone-Salmeterol 250-50] 1 each IH DAILY 11/03/24 - Past Medical/Surgical History Diabetic: No -: Hypertension -: Anxiety -: Sleep apnea -: depression -: Obesity hypoventilation syndrome -: Cholecystectomy -: appendectomy - Family History Mother Medical History: Diabetes, Cancer Notes: breast cancer, lung mass Father Medical History: Hypertension, Lung disease, Diabetes - Social History Alcohol use: Yes CD- Drugs: No Caffeine use: Yes Place of Residence: Home Review of Systems 10-point ROS is otherwise unremarkable Physical Examination Temp Pulse Resp BP Pulse Ox 98.0 F 98 H 18 144/59 H 92 11/06/24 11:35 11/06/24 11:35 11/06/24 11:35 11/06/24 11:35 11/06/24 11:35 General: Alert, In no apparent distress HEENT: Atraumatic, PERRLA, Mucous membr. moist/pink, EOMI, Sclerae nonicteric Neck: Supple, 2+ carotid pulse no bruit, No LAD, Without JVD or thyroid abnormality Respiratory: Clear to auscultation bilaterally, Normal air movement Cardiovascular: Regular rate/rhythm, Normal S1 S2 Gastrointestinal: Normal bowel sounds, No tenderness Musculoskeletal: No tenderness Integumentary: No rashes Neurological: Normal gait, Normal speech, Normal tone, Normal affect Lymphatics: No axilla or inguinal lymphadenopathy - Problems (1) Atrial fibrillation Current Visit: Yes Status: Acute Plan: short run, most likely secondary to significant lung disease, currently in sinus rhythm add Diltazem 120 mg po daily start ASA 81 mg daily continue to monitor on tele (2) Chronic diastolic heart failure Current Visit: Yes Status: Acute Plan: continue diamox, spirnolactone and HCTZ Continue to monitor input and output (3) HTN (hypertension) Current Visit: Yes Status: Acute Plan: medications as above.
--- NOTE | 2024-11-06 18:04 | P.PN ---
Date of Service: 11/06/24 Subjective: Awake, transferring to bedside commode and bedside chair heart rate NS this morning ROS: 10 point ROS as noted above, otherwise negative Physical exam GEN: AAO x 3, NAD CV: NSR, 2+ pitting edema to bilateral lower extremities Pulm: Nonlabored respirations on BiPAP, 2-3 Liters nasal cannula throughout the day ABD: Soft on palpation, nondistended MSK: No joint tenderness Integumentary: No rashes Neuro: Normal speech, normal affect Vitals reviewed Assessment: Acute on chronic hypoxic/hypercapnic respiratory failure Lower extremity edema Sinus tachycardia Anxiety/depression Insomnia Hypertension Plan: Acute on chronic hypoxic/hypercapnic respiratory failure Lower extremity edema Pulmonology consultation Nasal cannula, BiPAP as needed/at night, attempt to wean bipap Has not been able to get outpatient sleep study yet due to preoperative cost Lower extremity edema present Has home O2 2 to 3 L seen by pulmonology continue lisinopril/hydrochlorothiazide started on spironolactone and Diamox Sinus tachycardia -Cardiology consulted -Serial troponin pending -Cardizem IV x 1 -Continuous telemetry -EKG with Sinus tach -Diltazem 120 mg daily Anxiety/depression Insomnia Hypertension Continue home medications once verified DVT PPX: Lovenox Code status: Full code Discharge Plan: Home Plan to discharge in: 48 Hours <Rosy Godfrey - Last Filed: 11/06/24 18:05> I hereby attest that I have reviewed and supervised the clinical work and documentation completed by Rosy Godfrey CLAIMS AUDITOR. I have reviewed the patient care plans, assessment, and documentation plan as noted. <Mickie Red - Last Filed: 11/06/24 22:19>
[2024-11-07] MEDS: DOCUSATE NA 100 MG CAP PO ONE (00:36)
[2024-11-07 05:27] LABS: Anion Gap 6.8 mEq/L (5.0-15.0); Potassium 3.8 mEq/L (3.5-5.1)
[2024-11-07] MEDS: DOCUSATE NA 100 MG CAP PO SCH (09:27)
[2024-11-07] MEDS: ASPIRIN EC 81 MG TAB PO SCH (09:27)
[2024-11-07] MEDS: DILTIAZEM HCL 120 MG SR CAP PO SCH (09:30)
--- NOTE | 2024-11-07 11:28 | P.PN ---
Subjective Date of Service: 11/07/24 Chief Complaint: Chronic respiratory failure Subjective: No new changes, No C/O voiced, Tolerating diet, Ambulating, Improving Review of Systems 10-point ROS is otherwise unremarkable Physical Examination - Vital Signs Temperature: 98.2 F Blood Pressure: 149/65 Pulse: 95 Respirations: 18 Pulse Ox (%): 98 - Physical Exam General: Alert, In no apparent distress HEENT: Atraumatic, PERRLA, EOMI Neck: Supple, JVD not distended Respiratory: Clear to auscultation bilaterally, Normal air movement Cardiovascular: Regular rate/rhythm, Normal S1 S2 Gastrointestinal: Normal bowel sounds, No tenderness Musculoskeletal: No tenderness Integumentary: No rashes Neurological: Normal speech, Normal tone, Normal affect Lymphatics: No axilla or inguinal lymphadenopathy - Studies Medications List Reviewed: Yes Assessment And Plan - Current Problems (Diagnosis) (1) Atrial fibrillation Current Visit: Yes Status: Acute Plan: short run, most likely secondary to significant lung disease, currently in sinus rhythm Diltazem 120 mg po daily start ASA 81 mg daily continue to monitor on tele (2) Chronic diastolic heart failure Current Visit: Yes Status: Acute Plan: continue diamox, spirnolactone and HCTZ Continue to monitor input and output (3) HTN (hypertension) Current Visit: Yes Status: Acute Plan: medications as above.
--- NOTE | 2024-11-07 11:49 | EKG ---
Test Date: 2024-11-05 Test Time: 10:14:02 Executive Director [employer]: [employer] MEASUREMENT RESULTS: Intervals: Rate: 155 [place]: QRSD: 76 QT: 280 QTc: 449 [place]: P: ND: QRS: 55 T: -28 INTERPRETIVE STATEMENTS: Atrial fibrillation with rapid ventricular response Nonspecific ST and T wave abnormality, probably digitalis effect Abnormal ECG Compared to ECG 11/03/2024 05:45:43 ST (T wave) deviation now present Sinus tachycardia no longer present Atrial premature complex(es) no longer present Electronically Signed On 11-07-24 11:44:03 CDT by Bret London
--- NOTE | 2024-11-07 12:13 | P.PN ---
Date of Service: 11/07/24 Subjective: Awake and feeling well, concerned about the need for a Cpap Some tachycardia today, continue with diltiazem as recommended by cardiology Will walk in the [place] for tolerance evaluation ROS: 10 point ROS as noted above, otherwise negative Physical exam GEN: Alert and oriented x 3, NAD CV: mild tachycardia, 2+ pitting edema to bilateral lower extremities Pulm: symmetrical chest wall movement, on BiPAP at night and 2-3 Liters nasal cannula throughout the day ABD: Soft on palpation, nontender MSK: No joint tenderness Integumentary: No rashes Neuro: Normal speech, normal affect Vitals reviewed Assessment: Acute on chronic hypoxic/hypercapnic respiratory failure Lower extremity edema Sinus tachycardia Anxiety/depression Insomnia Hypertension Plan: Acute on chronic hypoxic/hypercapnic respiratory failure Lower extremity edema Pulmonology consultation Nasal cannula, BiPAP as needed/at night, attempt to wean bipap Has not been able to get outpatient sleep study yet due to preoperative cost Lower extremity edema present Has home O2 2 to 3 L seen by pulmonology continue lisinopril/hydrochlorothiazide started on spironolactone and Diamox Sinus tachycardia -Cardiology Following -Serial troponin 6.9/5.2/22.3/14.6 -Cardizem IV x 1 -Continuous telemetry -EKG with Sinus tach -Diltazem 120 mg daily Anxiety/depression Insomnia Hypertension Continue home medications once verified DVT PPX: Lovenox Code status: Full code Discharge Plan: Home Plan to discharge in: 48 Hours <Rosy Godfrey - Last Filed: 11/07/24 17:08> I agree with the physical exam, and assessment and plan with Rosy Godfrey NP. I have reviewed the findings and concur with the evaluation and management as documented. <Mickie Red - Last Filed: 11/07/24 17:29>
--- NOTE | 2024-11-08 12:13 | P.PN ---
Date of Service: 11/08/24 Subjective: Sitting in bedside chair, continues to wait for Cpap machine Otherwise stable on 3 LNC, no cardiac arrhythmias OVN ROS: 10 point ROS as noted above, otherwise negative Physical exam GEN: AAO x 3, NAD CV: NSR, 2+ pitting edema to bilateral lower extremities Pulm: Clear BBS, on cpap at night and 2-3 Liters nasal cannula throughout the day ABD: Soft on palpation, normal active bowel sounds MSK: No joint tenderness Integumentary: No rashes Neuro: Normal speech, normal affect Vitals reviewed Assessment: Acute on chronic hypoxic/hypercapnic respiratory failure Lower extremity edema Sinus tachycardia Anxiety/depression Insomnia Hypertension Plan: Acute on chronic hypoxic/hypercapnic respiratory failure Lower extremity edema -Pulmonology following -Nasal cannula, BiPAP as needed/at night, attempt to wean bipap -Has not been able to get outpatient sleep study yet due to preoperative cost -Lower extremity edema present -Has home O2 2 to 3 L seen by pulmonology -continue lisinopril/hydrochlorothiazide started on spironolactone and Diamox Sinus tachycardia -Cardiology Following -Serial troponin 6.9/5.2/22.3/14.6 -Cardizem IV x 1 -Continuous telemetry -EKG with Sinus tach -continue Diltazem 120 mg daily Anxiety/depression Insomnia Hypertension -Continue home medications once verified DVT PPX: Lovenox Code status: Full code Discharge Plan: Home Plan to discharge in: 48 Hours <Rosy Godfrey - Last Filed: 11/08/24 12:05> I hereby attest that I have reviewed and supervised the clinical work and documentation completed by Rosy Godfrey NP. I have reviewed the patient care plans, assessment, and documentation plan as noted. <Mickie Red - Last Filed: 11/08/24 17:35>
--- NOTE | 2024-11-09 14:52 | P.DS ---
Admission Date: 11/03/24 Discharge Date: 11/09/24 Reason for Admission: Chronic respiratory failure Brief History of Present Illness: Diagnosis Acute on chronic hypoxic/hypercapnic respiratory failure Lower extremity edema Sinus tachycardia Anxiety/depression Insomnia Hypertension HPI 11/03/2024 49-year-old female with history of obesity hypoventilation syndrome, anxiety/depression, insomnia and hypertension presents the emergency department chief complaint of shortness of breath. She began to feel quite short of breath when lying down to go to sleep last night, she does have home oxygen at 2 3 L which he only uses as needed but has been needing to use more frequently lately. She is also noted increasing edema to her lower extremities over the course of the last month. She had a recent hospitalization from 09/26 to 09/28, during the hospitalization scan and CT PE protocol which was negative for PE, venous Dopplers were negative for DVT, echocardiogram was performed which was a poor quality study but did show an EF of around 60 to 65%. Patient was evaluated today in the emergency department her labs were significant for a normal white blood cell count bicarb of 38 glucose 120 ABG showed a pH of 7.3 pCO2 of 78.5 PO2 of 199. Patient was requiring BiPAP overnight, will be admitted for further management. Hospital Course: Acute on chronic hypoxic/hypercapnic respiratory failure Lower extremity edema Patient was seen by Pulmonology recommending CPAP- Social work has ordered and communicated with [employer] Juan José, Mahnaz will need to call and further set up payment and arrangements. Patient has tolerated Nasal cannula, BiPAP as needed/at night. Patient has not been able to get outpatient sleep study yet due to preoperative cost. Continue home O2 2 to 3 L seen by pulmonology. lisinopril/hydrochlorothiazide, spironolactone, and Diamox- will continue outpatient. Sinus tachycardia Patient was seen by Cardiology who recommended cardizem daily, continuous telemetry showing NSR and stable for discharge. Serial troponin 6.9/5.2/22.3/14.6- trended flat. Tolerated and improved with Diltazem 120 mg daily- will continue outpatient. Anxiety/depression Insomnia Hypertension Continued home medications once verified. On 11/09/2024, Shahana was seen in morning rounds hemodynamically stable, continues telemetry showing normal sinus rhythm, tolerating diltiazem and will continue outpatient. Will follow-up with Dr. Waters and Dr. London. Aldactone, aspirin, diltiazem, Diamox, Dulera, hydrochlorothiazide, lisinopril prescriptions provided. Physical exam GEN: awake, alert, and oriented x 3, NAD CV: Normal sinus rhythm Pulm: Clear BBS, on cpap at night and 2-3 Liters nasal cannula throughout the day ABD: Soft on palpation, normal active bowel sounds MSK: No joint tenderness Integumentary: No rashes Neuro: Normal speech, normal affect <Rosy Godfrey - Last Filed: 11/09/24 14:55> Admission Date: 11/03/24 Discharge Date: 11/09/24 Hospital Course: I hereby attest that I have reviewed and supervised the clinical work and doc umentation completed by Rosy Godfrey POLITICAL ANALYST. I have reviewed the patient care plans, assessment, and documentation plan as noted. <Mickie Rde - Last Filed: 11/09/24 17:47> Disposition: ROUTINE DISCHARGE Discharge Condition: GOOD Vital Signs/Physical Exam: Temp Pulse Resp BP Pulse Ox 98 F 83 16 106/58 L 95 11/09/24 12:00 11/09/24 12:00 11/09/24 12:00 11/09/24 12:00 11/09/24 12:00 Laboratory Data at Discharge: WBC 11.00 thou/uL (4.3-10.9) H 11/06/24 04:34 Hgb 11.9 g/dL (12.0-15.0) L 11/06/24 04:34 Hct 35.0 % (36.0-45.0) L 11/06/24 04:34 Plt Count 287 thou/uL (152-406) 11/06/24 04:34 Sodium 133 mEq/L (136-145) L 11/07/24 05:04 Potassium 3.8 mEq/L (3.5-5.1) 11/07/24 05:04 BUN 16 mg/dL (7-18) 11/07/24 05:04 Creatinine 0.55 mg/dL (0.55-1.02) 11/07/24 05:04 Glucose 104 mg/dL (74-106) 11/07/24 05:04 Magnesium 2.0 mg/dL (1.6-2.4) 11/04/24 05:16 Total Bilirubin 0.2 mg/dL (0.2-1.0) 11/04/24 05:16 AST 15 U/L (15-37) 11/04/24 05:16 ALT 37 U/L (13-56) 11/04/24 05:16 Alkaline Phosphatase 50 U/L (45-117) 11/04/24 05:16 <Rosy Godfrey - Last Filed: 11/09/24 14:55> Vital Signs/Physical Exam: Temp Pulse Resp BP Pulse Ox 98.2 F 99 H 15 117/59 L 96 11/09/24 16:00 11/09/24 16:00 11/09/24 16:00 11/09/24 16:00 11/09/24 16:00 Laboratory Data at Discharge: WBC 11.00 thou/uL (4.3-10.9) H 11/06/24 04:34 Hgb 11.9 g/dL (12.0-15.0) L 11/06/24 04:34 Hct 35.0 % (36.0-45.0) L 11/06/24 04:34 Plt Count 287 thou/uL (152-406) 11/06/24 04:34 Sodium 133 mEq/L (136-145) L 11/07/24 05:04 Potassium 3.8 mEq/L (3.5-5.1) 11/07/24 05:04 BUN 16 mg/dL (7-18) 11/07/24 05:04 Creatinine 0.55 mg/dL (0.55-1.02) 11/07/24 05:04 Glucose 104 mg/dL (74-106) 11/07/24 05:04 Magnesium 2.0 mg/dL (1.6-2.4) 11/04/24 05:16 Total Bilirubin 0.2 mg/dL (0.2-1.0) 11/04/24 05:16 AST 15 U/L (15-37) 11/04/24 05:16 ALT 37 U/L (13-56) 11/04/24 05:16 Alkaline Phosphatase 50 U/L (45-117) 11/04/24 05:16 <Mickie Red - Last Filed: 11/09/24 17:47> Diet: ADA Activity: Fall precautions <Rosy Godfrey - Last Filed: 11/09/24 14:55> <Mickie Red - Last Filed: 11/09/24 17:47> Home Medications: Trazodone [Desyrel*] 100 mg PO BEDTIME PRN 09/26/24 Venlafaxine HCl [Venlafaxine HCl ER] 150 mg PO DAILY 09/26/24 Albuterol Sulfate [Proair Respiclick] 90 mcg IH Q4H PRN 30 Days #1 inh 09/28/24 Fluticasone Propion/Salmeterol [Fluticasone-Salmeterol 250-50] 1 each IH DAILY 11/03/24 Acetazolamide [Diamox Sequels] 250 mg PO DAILY 30 Days #15 tab 11/09/24 Aspirin [Aspirin EC 81 MG] 81 mg PO DAILY 30 Days #30 tab 11/09/24 Diltiazem Cd [Cardizem Cd*] 120 mg PO DAILY 30 Days #30 cap 11/09/24 Mometasone/Formoterol [Dulera 200 Mcg/5 Mcg Inhaler] 2 puff IH BID 30 Days #1 inhaler 11/09/24 Spironolactone [Aldactone*] 25 mg PO BID 30 Days #60 tab 11/09/24 hydroCHLOROthiazide [Hydrochlorothiazide*] 12.5 mg PO DAILY 30 Days #30 cap 0 11/09/24 lisinopriL [Prinivil*] 10 mg PO DAILY 30 Days #30 tab 11/09/24 New Medications: Spironolactone [Aldactone*] 25 mg PO BID 30 Days #60 tab Aspirin [Aspirin EC 81 MG] 81 mg PO DAILY 30 Days #30 tab Diltiazem Cd [Cardizem Cd*] 120 mg PO DAILY 30 Days #30 cap Acetazolamide [Diamox Sequels] 250 mg PO DAILY 30 Days #15 tab Mometasone/Formoterol [Dulera 200 Mcg/5 Mcg Inhaler] 2 puff IH BID 30 Days #1 inhaler hydroCHLOROthiazide [Hydrochlorothiazide*] 12.5 mg PO DAILY 30 Days #30 cap lisinopriL [Prinivil*] 10 mg PO DAILY 30 Days #30 tab Physician Discharge Instructions: 1. Please call and schedule a follow-up appointment with your PCP in 3-5 days - Please follow-up with your PCP for medication refills/adjustments 2. Please call and schedule a follow-up appointment with Dr. Waters in one week 3. Please call and schedule follow-up appointment with Dr. Dye in 1 week -He will make adjustments to ditalizem as needed 4. Continue consistent carb diet 5. activity restrictions, none, ambulate as tolerated 6. Return to the ED if symptoms worsen New medications Aldactone 25 mg twice daily Aspirin 81 mg daily Diltiazem 120 mg daily Diamox 250 mg daily, you will need to cut the pill in half as it will come in 500 mg tablets Dulera 2 puffs twice daily Hydrochlorothiazide 12.5 mg daily, this is a change from the combination pill of hydrochlorothiazide lisinopril Lisinopril 10 mg daily [employer] @ The total for machine and supplies is $675.00 and this can be divided into 3 monthly payments [employer] will send patient an automatic welcome message w/ further instructions via text in approximately 2 days. Tisha encourages patient to call and f/u on order in 3 days if she has not been contacted. [facility] [place]- Address: [address] [place] [address] [address], [place] [address] Dr. Waters's office as well as a free clinic for PCP needs Followup: Martin Waters MD [ACTIVE - CAN ADMIT] - Bret London MD [ACTIVE - CAN ADMIT] - NONE,NONE [Primary Care Provider] -
[2024-11-09 15:15] VITALS: O2SAT 95
[2024-11-09 16:12] VITALS: BP 117/59; TEMP 98.2
== END 2024-11-09 15:45 | disposition home or self-care (01) | DRG 189 ==
LOC: ER 05:20 → ERHOLD 07:27 → 4TH 08:40
PROVIDERS: ADMIT Hospitalist; ATTEND Family Medicine
PROC: 5A09557 Assistance with Respiratory Ventilation, Greater than 96 Consecutive Hours, Continuous Positive Airway Pressure (ICD-10-PCS; principal; 2024-11-03)
DX: J96.21 Acute and chronic respiratory failure with hypoxia (principal); Z68.42 Body mass index [BMI] 45.0-49.9, adult; E66.2 Morbid (severe) obesity with alveolar hypoventilation; I50.32 Chronic diastolic (congestive) heart failure; J96.22 Acute and chronic respiratory failure with hypercapnia; I11.0 Hypertensive heart disease with heart failure; F41.9 Anxiety disorder, unspecified; F32.A Depression, unspecified; I48.91 Unspecified atrial fibrillation; G47.00 Insomnia, unspecified; J98.4 Other disorders of lung; R00.0 Tachycardia, unspecified; Z90.49 Acquired absence of other specified parts of digestive tract; Z79.899 Other long term (current) drug therapy
CPT/HCPCS: 36415; 36600; 71045; 80048; 80053; 80076; 82805; 83605; 83735; 83880; 84484; 85025; 93005; 94640; 94660; 96374; 99285; J0282; J1650; J1938; J3535; J7060; J7613